=== PATIENT | female | born 1960 | race Hispanic/Latino ===

== ENCOUNTER → 2017-02-21 | Outpatient (CLI) | payer BC ==
[~2017-02-21] MED LIST: CIPR500T78 PO; HYDR1TAB8 PO; IBUP800T26 PO; METR500T PO; NITR-65 PO; PRILOSEC; SERT50TA; TRM50T; [UNRECOGNIZED DRUG - OTHER]
--- NOTE | 2017-02-21 11:12 | Diagnostic Imaging Report ---
EXAMINATION: Ultrasound of the soft tissues of the head and neck. INDICATION: Left posterior neck lump. FINDINGS: There is a hypoechoic lobulated mass measuring 3.8 x 1.2 x 1.5 cm. This does not have internal vascularity. Although this is a nonspecific finding, it may correlate with a lipoma. IMPRESSION: 3.8 cm lobulated mass is seen in the left side of the neck at the palpable area, has a nonspecific imaging appearance but may correlate with a lipoma. Correlate clinically. Dictated by: Dictated on workstation # [id number]
== END ==
LOC: RAD 10:18
PROVIDERS: ATTEND Nurse Practitioner Community Health
DX: R22.1 Localized swelling, mass and lump, neck (principal)
CPT/HCPCS: 76536

== ENCOUNTER 2017-03-20 12:02 | Outpatient (CLI) | payer BC ==
[~2017-03-20] VITALS: Ht 161.3 cm; Wt 67.6 kg
[2017-03-20] MEDS ORDERED: NAPR500T8 PO (12:17)
[2017-03-20] MEDS ORDERED: OMEP20CA12 PO (12:17)
[2017-03-20 12:18] VITALS: BP 151/69
== END 2017-03-20 12:36 | disposition home or self-care (01) ==
LOC: PREOP 12:02
PROVIDERS: ATTEND Surgery
DX: Z01.818 Encounter for other preprocedural examination (principal); R22.1 Localized swelling, mass and lump, neck
CPT/HCPCS: 87081

== ENCOUNTER 2017-03-23 05:55 | Day surgery (SDC) | payer BC ==
[~2017-03-23] VITALS: Ht 161.3 cm; Wt 67.6 kg
[~2017-03-23 05:55] MED LIST changes: +NAPR500T8 PO; +OMEP20CA12 PO
[2017-03-23] MEDS ORDERED: LACTATED RINGERS 1,000 ML IV PRN (06:20)
[2017-03-23] MEDS ORDERED: DEXAMETHASONE 10 MG/ML (DECADRON) 1 ML VIAL ONE (06:23)
[2017-03-23] MEDS ORDERED: proPOfol 200 MG/20 ML (DIPRIVAN) VIAL IV ONE (06:23)
[2017-03-23] MEDS ORDERED: ONDANSETRON 4 MG/2 ML (SDV) Z0FRAN ONE (06:23)
[2017-03-23] MEDS ORDERED: MIDAZOLAM 2 MG/2 ML (VERSED) VIAL ONE (06:23)
[2017-03-23] MEDS ORDERED: SEVOFLURANE (ULTANE) 15 ML INHAL SOLN ONE ×5 (06:23→08:51)
[2017-03-23] MEDS ORDERED: LIDOCAINE PF 2% 5 ML (XYLOCAINE) VIAL ONE (06:23)
[2017-03-23] MEDS ORDERED: fentaNYL INJECTION 100 MCG/2 ML AMP ONE (06:23)
[2017-03-23] MEDS ORDERED: NS (IVPB) 50 ML ONE (06:28)
[2017-03-23] MEDS ORDERED: CLINDAMYCIN 600 MG/4ML (CLEOCIN) VIAL ONE (06:28)
[2017-03-23] MEDS ORDERED: CLINDAMYCIN 600 MG/NS 50 ML IVPB IV ONE ×2 (07:00)
[2017-03-23 07:04] VITALS: BP 144/95
[2017-03-23] MEDS ORDERED: LIDOCAINE 1% INJ 20 ML (XYLOCAINE) VIAL ONE (07:11)
[2017-03-23] MEDS ORDERED: BUPIVACAINE 0.5% 30 ML (SENSORCAINE) VIAL ONE (07:11)
--- NOTE | 2017-03-23 07:47 | Progress Note-Pre Operative ---
Pre-Operative Progress Note H&P Reviewed The H&P was reviewed, patient examined and no changes noted. Date Seen by Provider: Mar 23, 2017 Time Seen by Provider: 07:35 Date H&P Reviewed: Mar 23, 2017 Time H&P Reviewed: 07:35 Pre-Operative Diagnosis: neck mass EWELINA MENDES DO Mar 23, 2017 07:47
[2017-03-23] MEDS ORDERED: LIDOCAINE 1% INJ 20 ML (XYLOCAINE) VIAL INJ ONE (08:15)
[2017-03-23] MEDS ORDERED: BUPIVACAINE 0.5% 30 ML (SENSORCAINE) VIAL INJ ONE (08:15)
--- NOTE | 2017-03-23 08:48 | Progress Note-Post Operative ---
Post-Operative Progess Note Surgeon (s)/Learning Engineer (s) Surgeon EWELINA MENDES DO Learning Engineer: na Pre-Operative Diagnosis neck mass Post-Operative Diagnosis intramuscular lipoma Procedure & Operative Findings Date of Procedure 03/23/17 Procedure Performed/Findings excision intramuscular lipoma 3x2.5x2 cm of neck Anesthesia Type gen Estimated Blood Loss Estimated blood loss (mL): min Specimens/Packing Specimens Removed lipoma EWELINA MENDES DO Mar 23, 2017 08:48
--- NOTE | 2017-03-23 08:50 | Discharge Inst-Simple/Standard ---
Discharge Inst-Standard Patient Instructions/Follow Up Plan of Care/Instructions/FU: 1 week [place]le Activity as Tolerated: Yes Discharge Diet: Regular Diet Other Inst to Patient Follow up Appt: Make appointment for 1 week. Instructions: No strenuous activity. May shower in 24 hours, no tub bath or soaking. Use incentive spirometer at home as directed. No Smoking Skin/Wound Care: May remove bandage in 24 hours. Keep stitched area clean and dry. Symptoms to Report: Appetite Changes, Extremity Discoloration, Numbness/Tingling, Swelling Increased , Bleeding Excessive, Eyesight Changes, Pain Increased, Urine Color Change, Constipation(Persistent), Fever over 101 degree F, Pain/Pressure in chest, Urinating Difficulty, Cough Up/Vomit Blood, Heart Beat Irreg/Pounding, Pain/ Pressure in jaw, Vaginal Bleeding Increase, Cramps in feet or legs, Lightheadedness, Pain/Pressure in shoulder, Diarrhea(Persistent), Memory Changes Suddenly, Questions/Concerns, Weight gain consecutive days, Dizziness/ Fainting, Nausea/Vomiting, Shortness of Breath, Weight gain over 2 pounds If questions or concerns contact your physician Or seek help at emergency department. EWELINA MENDES DO Mar 23, 2017 08:50
[2017-03-23 09:40] VITALS: BP 135/74
[2017-03-23 10:10] VITALS: BP 132/68
[2017-03-23 10:40] VITALS: BP 127/67
[2017-03-23 10:55] VITALS: BP 127/67
--- NOTE | 2017-03-24 09:42 | OPERATIVE REPORT ---
DATE OF SERVICE: 03/23/2017 PREOPERATIVE DIAGNOSIS: Neck mass. POSTOPERATIVE DIAGNOSIS: Intramuscular lipoma of the neck. PROCEDURE: Excision of intramuscular lipoma 3 x 2.5 x 2 cm of the neck. ANESTHESIA: General. ESTIMATED BLOOD LOSS: Minimal. COMPLICATIONS: None. INDICATIONS: The patient is a 56-year-old female with a neck mass that caused her pain and discomfort. She understands risks and benefits of procedure and wished to proceed with procedure. Consent was signed and on the chart. DESCRIPTION OF PROCEDURE: The patient was taken to the operating suite. She was prepped and draped in sterile fashion. Surgical pause was performed. An incision was made over the palpable mass. Cautery was used to dissect down through the subcutaneous tissue. Muscle was encountered and palpable mass was still below the muscle. The muscle had to be slightly divided. At this time, the fatty tumor was able to be visualized. Blunt dissection was used to dissect around this removing the fatty mass. Once removed, the wound was then irrigated with copious amounts of irrigation. The subcutaneous tissues were then reapproximated using 3-0 Vicryl. Skin was then closed using 3-0 nylon in a simple interrupted fashion. The patient tolerated the procedure well without any complications. She was taken to recovery room in stable condition. Job ID: [id number] DocumentID: [id number] Dictated Date: 03/23/2017 15:01:27 Explosives Truck Driver Date: 03/23/2017 22:36:40 Dictated By: EWELINA MENDES DO
== END 2017-03-23 10:55 | disposition home or self-care (01) ==
LOC: SDC 05:55
PROVIDERS: ATTEND Surgery
DX: D17.0 Benign lipomatous neoplasm of skin and subcutaneous tissue of head, face and neck (principal); M19.91 Primary osteoarthritis, unspecified site; M81.0 Age-related osteoporosis without current pathological fracture; F17.210 Nicotine dependence, cigarettes, uncomplicated; Z79.899 Other long term (current) drug therapy
CPT/HCPCS: 88304

== ENCOUNTER → 2018-07-06 | Outpatient (CLI) | payer BC ==
--- NOTE | 2018-07-06 21:18 | Diagnostic Imaging Report ---
INDICATION: Routine screening. No prior mammograms are available for comparison. 2-D and 3-D bilateral screening mammography was performed with CAD. The current study was also evaluated with a Computer Aided Detection (CAD) system. FINDINGS: Both breasts are heterogeneously dense, limiting the sensitivity of mammography. No dominant mass or malignant-appearing microcalcifications are seen. The axillae are unremarkable. IMPRESSION: No mammographic features suspicious for malignancy are identified. ACR BI-RADS Category 1: Negative. Result letter will be mailed to the patient. Note: At least 10% of breast cancer is not imaged by mammography. Dictated by: Dictated on workstation # [id number]
== END ==
LOC: RAD 09:28
PROVIDERS: ATTEND Nurse Practitioner Family
DX: Z12.31 Encounter for screening mammogram for malignant neoplasm of breast (principal)
CPT/HCPCS: 77067

== ENCOUNTER → 2018-07-16 | Outpatient (CLI) | payer BC | END | disposition home or self-care (01) | LOC: PREOP 06:13 | PROVIDERS: ATTEND Surgery | DX: Z01.818 Encounter for other preprocedural examination (principal) ==

== ENCOUNTER 2018-07-19 11:27 | Day surgery (SDC) | payer BC ==
[~2018-07-19] VITALS: Ht 161.3 cm; Wt 67.6 kg
[2018-07-19] MEDS ORDERED: NS IV 500 ML 500 ML IV PRN (11:42)
[2018-07-19 11:45] VITALS: BP 130/70
[2018-07-19] MEDS ORDERED: LACTATED RINGERS 1,000 ML IV ONE (11:45)
[2018-07-19] MEDS ORDERED: MIDAZOLAM 2 MG/2 ML (VERSED) VIAL ONE (12:29)
[2018-07-19] MEDS ORDERED: proPOfol 200 MG/20 ML (DIPRIVAN) VIAL IV ONE (12:29)
--- NOTE | 2018-07-19 12:31 | Progress Note-Pre Operative ---
Pre-Operative Progress Note H&P Reviewed The H&P was reviewed, patient examined and no changes noted. Date Seen by Provider: Jul 19, 2018 Time Seen by Provider: 12:30 Date H&P Reviewed: Jul 19, 2018 Time H&P Reviewed: 12:30 Pre-Operative Diagnosis: screening colonoscopy, constipation EWELINA MENDES DO Jul 19, 2018 12:31
--- NOTE | 2018-07-19 13:10 | Discharge Inst-Simple/Standard ---
Discharge Inst-Standard Patient Instructions/Follow Up Plan of Care/Instructions/FU: Repeat colonoscopy in 10 years unless family history of colon cancer, or personal history of colon polyps which would be 5 years. Any issues before that be seen at that time. Activity as Tolerated: Yes Discharge Diet: Regular Diet EWELINA MENDES DO Jul 19, 2018 13:10
--- NOTE | 2018-07-19 13:11 | Progress Note-Post Operative ---
Post-Operative Progess Note Surgeon (s)/Correctional Officer Chief (s) Surgeon EWELINA MENDES DO Correctional Officer Chief: na Pre-Operative Diagnosis screening colonoscopy, constipation Post-Operative Diagnosis normal colon Procedure & Operative Findings Date of Procedure 07/19/18 Procedure Performed/Findings colonoscopy Anesthesia Type per [facility] Estimated Blood Loss Estimated blood loss (mL): none Specimens/Packing Specimens Removed na EWELINA MENDES DO Jul 19, 2018 13:11
[2018-07-19 13:35] VITALS: BP 135/79
[2018-07-19] MEDS ORDERED: ONDANSETRON 4 MG/2 ML (SDV) Z0FRAN ONE (13:39)
[2018-07-19] MEDS ORDERED: ONDANSETRON 4 MG/2 ML (SDV) Z0FRAN IVP ONE (13:45)
[2018-07-19 14:02] VITALS: BP 127/81
[2018-07-19 14:03] VITALS: BP 127/81
--- NOTE | 2018-07-19 16:05 | Anesthesia-General Post-Op ---
MAC Patient Condition Mental Status/LOC: Same as Preop Cardiovascular: Satisfactory Nausea/Vomiting: Present (Nauseated after the procedure, better with zofran.) Respiratory: Satisfactory Pain: Controlled Complications: Absent Post Op Complications Complications None Follow Up Care/Instructions Patient Instructions None needed. Anesthesiology Discharge Order Discharge Order Patient was seen after the procedure and she was doing well, no complaints, stable vital signs, no apparent adverse anesthesia problems. KYAW HAWLEY DO Jul 19, 2018 16:05
--- NOTE | 2018-07-19 18:58 | OPERATIVE REPORT ---
DATE OF SERVICE: 07/19/2018 PREOPERATIVE DIAGNOSIS: Screening colonoscopy, constipation. POSTOPERATIVE DIAGNOSIS: Screening colonoscopy, constipation. PROCEDURE: Colonoscopy. SURGEON: Ewelina Iraheta DO ANESTHESIA: Per MD. ESTIMATED BLOOD LOSS: None. COMPLICATIONS: None. INDICATIONS: The patient is a 58-year-old female needing screening colonoscopy. She understands risks and benefits of procedure and wished to proceed with procedure. Consent was signed in the chart. PROCEDURE: The patient was taken to endoscopy suite, placed in left lateral recumbent position. Timeout was performed. Digital rectal exam was performed. There were no palpable polyps, masses or ulcerations. Scope was inserted into the rectum and advanced all the way to the cecum with minimal difficulty. Prep was adequate. Scope was then slowly retracted back. There were no polyps, masses or ulceration in the cecum, ascending, transverse, descending and sigmoid colon. Once in the rectum, scope was also retroflexed noting no other pathology. Scope was returned to its normal position, slowly withdrawn until completely removed. The patient tolerated the procedure well without any complications. She was taken to the recovery room in stable condition. RECOMMENDATIONS: The patient will need repeat colonoscopy in 10 years. If she has any problems prior to that, she should be reevaluated at that time. If she has any family history of colon cancer or personal history of colon polyps, it would be 5 years. Any issues before next scheduled colonoscopy, she should be reevaluated at that time for further evaluation. Job ID: [id number] DocumentID: [id number] Dictated Date: 07/19/2018 13:13:03 Dish Maker Date: 07/19/2018 18:57:56 Dictated By: EWELINA IRAHETA DO
== END 2018-07-19 14:05 | disposition home or self-care (01) ==
LOC: ENDO 11:27
PROVIDERS: ATTEND Surgery
DX: Z12.11 Encounter for screening for malignant neoplasm of colon (principal); K59.09 Other constipation; F17.210 Nicotine dependence, cigarettes, uncomplicated

== ENCOUNTER 2019-10-01 13:38 | Emergency (ER) | payer BC ==
[~2019-10-01] VITALS: Ht 162.6 cm; Wt 65.0 kg
[~2019-10-01 13:38] MED LIST changes: -OMEP20CA12 PO; +OMEP20CA18 PO
--- NOTE | 2019-10-01 15:27 | ED Headache ---
General Chief Complaint: Head/Cervical Problems Stated Complaint: HEAD PAIN Nursing Triage Note: Pt amb to room #2 with c/o headache. Pt sent from [facility] for further evaluation et care. First Line Production Supervisor provider called report to this RN. Pt reports on this day at 0400 she was awoken to sudden severe pain to R temporal region radiating to R occiput. Pt noted to be tender to touch. Pt denies visual changes and blurry vision. Pt denies cough, fever, SOA. Pt reports her sister yesterday evening (cardiac complications). Language line used during triage. Nursing Sepsis Screen: No Definite Risk Source: patient Exam Limitations: no limitations History of Present Illness Date Seen by Provider: October 01, 2019 Time Seen by Provider: 15:26 Initial Comments To ER with reports of a right-sided headache that she awakened with this morning. She was sent here from [facility] urgent care. Denies blurred vision or any visual changes. Her sister yesterday. No vomiting. No trauma. Timing/Duration: 24 hours Severity/Quality: moderate Location: other (right-sided) Prior Headaches/Recent Trauma: no recent headache/trauma Associated Symptoms: No nausea/vomiting, No stiff neck Allergies and Home Medications Allergies Coded Allergies: Penicillins (Unverified Allergy, Mild, 09/02/08) Sulfa (Sulfonamide Antibiotics) (Unverified Allergy, Mild, RASH, , 09/02/08) hydrocodone (Verified Allergy, Unknown, itching, 03/20/17) Home Medications Naproxen 500 Mg Tablet.dr, 500 MG PO DAILY, (Reported) Omeprazole 20 Mg Capsule.dr, 20 MG PO DAILY, (Reported) Patient Home Medication List Home Medication List Reviewed: Yes Review of Systems Review of Systems Constitutional: see HPI Eyes: No Symptoms Reported Ears, Nose, Mouth, Throat: no symptoms reported Respiratory: no symptoms reported Cardiovascular: no symptoms reported Genitourinary: no symptoms reported Musculoskeletal: no symptoms reported Skin: no symptoms reported Psychiatric/Neurological: Headache Past Anmufja-Wktuye-Vgolff Hx Patient Social History Alcohol Use: Denies Use Recreational Drug Use: No Smoking Status: Current Everyday Smoker Type Used: Cigarettes Recent Foreign Travel: No Contact w/Someone Who Travel: No Recent Infectious Disease Expo: No Recent Hopitalizations: No Immunizations Up To Date Tetanus Booster (TDap): Unknown Seasonal Allergies Seasonal Allergies: Yes Past Medical History Surgeries: Yes (LT KNEE, LIPOMA ON BACK, BREAST BX) Gallbladder, Hysterectomy Respiratory: No Cardiac: No Neurological: No Reproductive Disorders: No CREATIVE DEVELOPER History: Hysterectomy Sexually Transmitted Disease: No HIV/AIDS: No Gastrointestinal: Yes (GASTRITIS) Gastroesophageal Reflux Musculoskeletal: Yes (CHRONIC NECK PAIN WITH RADICULAR SYMPTOMS) Osteoporosis, Arthritis Endocrine: No Loss of Vision: Denies Hearing Impairment: Denies Cancer: No Psychosocial: No Integumentary: Yes (POSTERIOR NECK MASS) Blood Disorders: No Adverse Reaction/Blood Tranf: No Physical Exam Vital Signs Vital Signs - First Documented 10/01/19 13:49 Temp 36.6 Pulse 94 Resp 18 B/P (MAP) 121/86 (98) Pulse Ox 97 O2 Delivery Room Air Capillary Refill : Less Than 3 Seconds Height, Weight, BMI Height: 5'3.50" Weight: 149lbs. 0.0oz. 67.589320vj; 24.00 BMI Method:Actual General Appearance: WD/WN, no apparent distress HEENT: PERRL/EOMI, normal ENT inspection, TMs normal Neck: non-tender, full range of motion Respiratory: no respiratory distress, no accessory muscle use Gastrointestinal: normal bowel sounds, non tender Extremities: normal range of motion, non-tender Psychiatric: alert, oriented x 3 Crainal Nerves: normal hearing, normal speech, PERRL Motor/Sensory: no motor deficit, no sensory deficit Skin: normal color, warm/dry Progress/Results/Core Measures Results/Orders Lab Results Laboratory Tests Test 10/01/19 14:20 Range/Units White Blood Count 11.5 H 4.3-11.0 10^3/uL Red Blood Count 5.47 4.35-5.85 10^6/uL Hemoglobin 14.9 11.5-16.0 G/DL Hematocrit 44 35-52 % Mean Corpuscular Volume 80 80-99 FL Mean Corpuscular Hemoglobin 27 25-34 PG Mean Corpuscular Hemoglobin Concent 34 32-36 G/DL Red Cell Distribution Width 13.9 10.0-14.5 % Platelet Count 236 130-400 10^3/uL Mean Platelet Volume 12.1 H 7.4-10.4 FL Neutrophils (%) (Auto) 75 42-75 % Lymphocytes (%) (Auto) 20 12-44 % Monocytes (%) (Auto) 4 0-12 % Eosinophils (%) (Auto) 2 0-10 % Basophils (%) (Auto) 0 0-10 % Neutrophils # (Auto) 8.7 H 1.8-7.8 X 10^3 Lymphocytes # (Auto) 2.2 1.0-4.0 X 10^3 Monocytes # (Auto) 0.4 0.0-1.0 X 10^3 Eosinophils # (Auto) 0.2 0.0-0.3 10^3/uL Basophils # (Auto) 0.0 0.0-0.1 10^3/uL Erythrocyte Sedimentation Rate 13 0-30 MM/HR Sodium Level 138 135-145 MMOL/L Potassium Level 3.7 3.6-5.0 MMOL/L Chloride Level 102 98-107 MMOL/L Carbon Dioxide Level 24 21-32 MMOL/L Anion Gap 12 5-14 MMOL/L Blood Urea Nitrogen 7 7-18 MG/DL Creatinine 0.76 0.60-1.30 MG/DL Estimat Glomerular Filtration Rate > 60 BUN/Creatinine Ratio 9 Glucose Level 153 H 70-105 MG/DL Calcium Level 9.8 8.5-10.1 MG/DL Corrected Calcium 9.4 8.5-10.1 MG/DL Total Bilirubin 0.6 0.1-1.0 MG/DL Aspartate Amino Transf (AST/SGOT) 19 5-34 U/L Alanine Aminotransferase (ALT/SGPT) 20 0-55 U/L Alkaline Phosphatase 131 40-136 U/L Total Protein 7.5 6.4-8.2 GM/DL Albumin 4.5 3.2-4.5 GM/DL My Orders Orders - DENI CHINCHILLA APRN Cbc With Automated Diff (10/01/19 15:23) Erythrocyte Sedimentation Rate (10/01/19 15:23) Ed Iv/Invasive Line Start (10/01/19 15:23) Ct Head Wo (10/01/19 15:23) Comprehensive Metabolic Panel (10/01/19 15:23) Ketorolac Injection (Toradol Injection) (10/01/19 16:00) Diphenhydramine Injection (Benadryl Inje (10/01/19 16:00) Prochlorperazine Injection (Compazine In (10/01/19 16:00) Medications Given in ED Current Medications Medications Dose Ordered Sig/Karthik Route Start Time Stop Time Status Last Admin Dose Admin Diphenhydramine HCl 25 mg ONCE ONCE IVP 10/01/19 16:00 10/01/19 16:01 DC 10/01/19 16:10 25 MG Ketorolac Tromethamine 15 mg ONCE ONCE IVP 10/01/19 16:00 10/01/19 16:01 DC 10/01/19 16:11 15 MG Prochlorperazine Edisylate 5 mg ONCE ONCE IV 10/01/19 16:00 10/01/19 16:01 DC 10/01/19 16:11 5 MG Vital Signs/I&O 10/01/19 13:49 Temp 36.6 Pulse 94 Resp 18 B/P (MAP) 121/86 (98) Pulse Ox 97 O2 Delivery Room Air Blood Pressure Mean: 98 Departure Communication (Admissions) 1631-I discussed symptoms with the patient using the language line. States that she's been unable to sleep for the past 2 nights and believes her headache to be related to stress because her sister who lives in [place] just . At this time she feels much better and would like to go home. She states she had no other symptoms other than the headache itself, no tingling no vision troubles or any other symptoms. Impression Primary Impression: Headache Qualified Codes: R51 - Headache Additional Impression: Grief Disposition: HOME, SELF-CARE Condition: Stable Departure-Patient Inst. Decision time for Depature: 16:32 Referrals: [facility] ([place]) Primary Care Physician MARIALUISA LOCKETT (Family) Primary Care Physician Patient Instructions: Headache, Adult Add. Discharge Instructions: 1. Return to ER for any concerns 2. Follow-up with your doctor next week 3. All discharge instructions reviewed with patient and/or family. Voiced understanding. DENI CHINCHILLA APRN October 01, 2019 15:27
[2019-10-01 15:33] LABS: ALBUMIN 4.5 GM/DL (3.2-4.5)
[2019-10-01 15:34] LABS: CHLORIDE 102 MMOL/L (98-107); POTASSIUM 3.7 MMOL/L (3.6-5.0); SODIUM 138 MMOL/L (135-145)
[2019-10-01 15:35] LABS: CALCIUM 9.8 MG/DL (8.5-10.1)
[2019-10-01 15:36] LABS: GLUCOSE 153 MG/DL (70-105); TOTAL PROTEIN 7.5 GM/DL (6.4-8.2)
[2019-10-01 15:37] LABS: CARBON DIOXIDE 24 MMOL/L (21-32)
[2019-10-01 15:38] LABS: BILIRUBIN,TOTAL 0.6 MG/DL (0.1-1.0)
[2019-10-01 15:39] LABS: ALKALINE PHOSPHATASE 131 U/L (40-136); BASOPHILS % (AUTO) 0 % (0-10); EOSINOPHILS # (AUTO) 0.2 10^3/uL (0.0-0.3); EOSINOPHILS % (AUTO) 2 % (0-10); HEMATOCRIT 44 % (35-52); HEMOGLOBIN 14.9 G/DL (11.5-16.0); LYMPHOCYTES # (AUTO) 2.2 X 10^3 (1.0-4.0); LYMPHOCYTES % (AUTO) 20 % (12-44); MEAN CORPUSCULAR HEMOGLOBIN 27 PG (25-34); MEAN CORPUSCULAR HGB CONC 34 G/DL (32-36); MEAN CORPUSCULAR VOLUME 80 FL (80-99); MEAN PLATELET VOLUME 12.1 FL (7.4-10.4); MONOCYTES # (AUTO) 0.4 X 10^3 (0.0-1.0); MONOCYTES % (AUTO) 4 % (0-12); NEUTROPHILS # (AUTO) 8.7 X 10^3 (1.8-7.8); NEUTROPHILS % (AUTO) 75 % (42-75); PLATELET COUNT 236 10^3/uL (130-400); RED CELL DISTRIBUTION WIDTH 13.9 % (10.0-14.5); WHITE BLOOD COUNT 11.5 10^3/uL (4.3-11.0)
[2019-10-01 15:40] LABS: CREATININE SERUM 0.76 MG/DL (0.60-1.30); GFR ESTIMATED > 60
[2019-10-01 15:41] LABS: BUN/CREATININE RATIO 9
--- NOTE | 2019-10-01 15:42 | Diagnostic Imaging Report ---
PROCEDURE: CT head without contrast. TECHNIQUE: Multiple contiguous axial images were obtained through the brain without the use of intravenous contrast. Auto Exposure Controls were utilized during the CT exam to meet ALARA standards for radiation dose reduction. INDICATION: Woke up earlier today with severe right-sided head pain. COMPARISON: None FINDINGS: There is no midline shift or mass effect. The ventricles and sulci are unremarkable. No evidence for acute intracranial hemorrhage, abnormal extra-axial fluid collections or cerebral edema is present. Slight asymmetric low attenuation deep right frontal lobe white matter, likely of no significance. Basal ganglia calcifications are present. The basilar cisterns are unremarkable. There is presence of intracranial vascular calcifications. No hyperdense MCA sign. The bony calvarium is intact. The visualized paranasal sinuses and mastoid air cells are clear. IMPRESSION: Negative for acute intracranial abnormality on noncontrast CT of the head. Dictated by: Dictated on workstation # [id number]
[2019-10-01 15:43] LABS: ALANINE AMINOTRANSFERASE 20 U/L (0-55)
[2019-10-01] MEDS ORDERED: KETOROLAC 30 MG/ML VIAL IVP ONE (16:00)
[2019-10-01] MEDS ORDERED: PROCHLORPERAZINE 10 MG/2ML INJ (COMPAZINE) IV ONE (16:00)
[2019-10-01] MEDS ORDERED: diphenhydrAMINE 50 MG/ML INJ (BENADRYL) IVP ONE (16:00)
[2019-10-01 16:01] LABS: ERYTHROCYTE SEDIMENTATION RATE 13 MM/HR (0-30)
[2019-10-01] MEDS ORDERED: LORA-404 PO (16:33)
--- OUTSIDE RECORDS SUMMARY | 2019-10-01 16:53 | XMS REPORT ---
Author Author [employer]. 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 [facility] [employer] Address [address] [address] Care Team Providers Care Solderer Furnace Name Role Phone CATHRYN MARIALUISA Unavailable CATHRYN MARIALUISA Unavailable CAHTRYN MARIALUISA Unavailable CATHRYN MARIALUISA Unavailable CATHRYN MARIALUISA Unavailable CATHRYN MARIALUISA Unavailable GREG Cooper Unavailable MARIALUISA LOCKETT Unavailable Migration, Doctor Unavailable Unavailable Migration, Doctor Unavailable Unavailable Migration, Doctor Unavailable Unavailable Migration, Doctor Unavailable Unavailable Migration, Doctor Unavailable Unavailable Migration, Doctor Unavailable Unavailable Migration, Doctor Unavailable Unavailable Migration, Doctor Unavailable Unavailable Migration, Doctor Unavailable Unavailable Migration, Doctor Unavailable Unavailable LEVI, MARISELA Unavailable MARIALUISA LOCKETT Unavailable Unavailable LEVI, MARISELA Unavailable LEVI, MARISELA Unavailable LEVI, MARISELA Unavailable LEVI, MARISELA Unavailable Unavailable Unavailable Allergies The data below is from unstructured sources No Information No Information No Information No Information No Information No Information No Information No Information No Information No Information No Information No Information No Information No Information No Information No Information No Information No Information No Information No Information No Information No Information No Information No Information No Information No Information No Information No Information No Information No Information No Information No Information No Information Medications The data below is from unstructured sources Unknown Medications Unknown Medications Unknown Medications Unknown Medications Unknown Medications Unknown Medications Unknown Medications No Known Medications No Known Medications No Known Medications No Known Medications No Known Medications No Known Medications No Known Medications No Known Medications No Known Medications No Known Medications Unknown Medications Unknown Medications No Known Medications No Known Medications No Known Medications No Known Medications Unknown Medications Unknown Medications Unknown Medications Unknown Medications No Known Medications No Known Medications No Known Medications No Known Medications No Known Medications No Known Medications No Known Medications No Known Medications No Known Medications No Known Medications No Known Medications No Known Medications No Known Medications No Known Medications No Known Medications No Known Medications No Known Medications No Known Medications No Known Medications No Known Medications No Known Medications No Known Medications No Known Medications No Known Medications No Known Medications No Known Medications No Known Medications No Known Medications No Known Medications No Known Medications No Known Medications No Known Medications No Known Medications No Known Medications No Known Medications No Known Medications No Known Medications No Known Medications No Known Medications Problems Active Problems Problem Normalized Date Last Normalized Normalized Provider Fa cility Classification Problem(s) Recorded Problem Problem Sta tus Duration Disorders of Hypercholester Chronic Active MARISELA LEVI [facility] lipid olemia [id number] [place] [address] metabolism (9 Translations: of [facility] sources.) [ [place] ([address]) Hypercholester olemia, - Hypercholester olemia E78.00] Other Other fecal Episodic Active MARISELA LEVI Commu nity gastrointestin abnormalities [address] [place] [address] al disorders Translations: of [facility] (4 sources.) [ - Loose [place] ([address]277) stools R19.5] Other diseases Other Chronic Active MARISELA LEVI Com munity of bladder and specified [id number] [place] [address] urethra (4 disorders of of [facility] sources.) bladder [place] ([address]) Translations: [ - Bladder spasm N32.89] Other Pain in left Episodic Active MARISELA LEVI Comm unity connective leg [address] [place] [address] tissue disease Translations: of [facility] (5 sources.) [ - Leg pain, [place] ([address]) left M79.605] Other diseases 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 [address] [place] [address] urethra (4 Translations: of [facility] sources.) [ Bladder [place] ([address]) spasm] Past or Other Problems Problem Normalized Date Last Normalized Normalized Provider Fa cility Classification Problem(s) Recorded Problem Problem Sta tus Duration Disorders of Pure no information no information MARISELA BREN [facility] lipid hypercholester [address] [facility] metabolism (1 olemia, of [facility] source.) unspecified [place] ([address]) Translations: [ - Hypercholester olemia E78.00] Procedures Procedure Normalized Procedure Procedure Result Performer Facility Date 06-05-2013 [employer] influenza no information no name Com [facility] ([id number]) 06-05-2013 Immunoassay nfct agt no information no name Co On license of [facility] antb qual/semiquan 1 [facility] ([id number]) 12-05-2013 Urnls dip stick/tablet no information no name [facility] rgnt auto w/o [facility] ([id number]) 06-05-2013 Urnls dip stick/tablet no information no name [facility] rgnt auto w/o [facility] (80582) Immunizations The data below is from unstructured sources No Known Immunizations No Known Immunizations No Known Immunizations No Known Immunizations No Known Immunizations No Known Immunizations No Known Immunizations No Known Immunizations No Known Immunizations No Known Immunizations No Known Immunizations No Known Immunizations No Known Immunizations No Known Immunizations No Known Immunizations No Known Immunizations No Known Immunizations No Known Immunizations No Known Immunizations No Known Immunizations No Known Immunizations No Known Immunizations No Known Immunizations No Known Immunizations No Known Immunizations No Known Immunizations No Known Immunizations No Known Immunizations No Known Immunizations No Known Immunizations No Known Immunizations No Known Immunizations No Known Immunizations No Known Immunizations No Known Immunizations No Known Immunizations No Known Immunizations No Known Immunizations No Known Immunizations No Known Immunizations No Known Immunizations No Known Immunizations No Known Immunizations No Known Immunizations No Known Immunizations Results Test Name Value Interpretation Reference Range Date Time Fa cility (Normalized) (Normalized) (Medline Reference) laboratory on 2019-01-20 Bacteria SEE NOTE (no code) [facility] (U) [facility] (62145) laboratory on 2018-12-12 Albumin 4.5 g/dL (N) 3.4 - 5.4 g/dL [facility] [Mass/Vol] [facility] (03479) Albumin/Globulin 1.8 {ratio} (N) 1 - 2.5 {ratio} [facility] [Mass ratio] [facility] (31718) ALP [Catalytic 135 U/L (H) 44 - 147 U/L [facility] Health activity/Vol] [facility] (01311) ALT [Catalytic 17 U/L (N) 4 - 40 U/L [facility] activity/Vol] [facility] () AST [Catalytic 18 U/L (N) 10 - 34 U/L [facility] Health activity/Vol] [facility] () Basophils (Bld) 0.044 10*3/uL (N) 0 - 0.3 10*3/uL [facility] Health [#/Vol] [facility] () Basophils/100 0.5 % (N) 0.5 - 1 % [facility] He alth WBC (Bld) [facility] () Bilirubin 0.3 mg/dL (N) 0.1 - 1.2 mg/dL [facility] [Mass/Vol] [facility] () Calcium 9.7 mg/dL (N) 8.5 - 10.2 mg/dL [facility] [Mass/Vol] [facility] () Chloride 104 mmol/L (N) 95 - 106 mmol/L [facility] [Moles/Vol] [facility] () Cholesterol 220 mg/dL (H) 180 - 200 mg/dL [facility] [Mass/Vol] [facility] () Cholesterol in 33 mg/dL (L) [facility] h HDL [Mass/Vol] [facility] () Cholesterol in 0 mg/dL (no code) 0 - 100 mg/dL [facility] LDL [Mass/Vol] [facility] (08689) Cholesterol non 187 mg/dL (H) [facility] HDL [Mass/Vol] [facility] (09230) Cholesterol.tota 6.7 {ratio} (H) [facility] Hea lth l/Cholesterol in [facility] HDL [Mass ratio] [facility] () CO2 [Moles/Vol] 27 mmol/L (N) 23 - 29 mmol/L [facility] (98164) Creatinine 0.71 mg/dL (N) [facility] (46972) Eosinophils 0.2 10*3/uL (N) 0.05 - 0.5 [facility] Heal th (Bld) [#/Vol] 10*3/uL [facility] (58348) Eosinophils/100 2.3 % (N) 1 - 4 % [facility] WBC (Bld) [facility] (73156) Erythrocyte 13.1 % (N) 11.6 - 14.6 % [facility] H ealth distribution Center [facility] width (RBC) [facility] [Ratio] (85419) GFR/1.73 sq M 107 (N) 90 - 120 [facility] He alth predicted among mL/min/{1.73_m2} mL/min/{1.73_m2} Center o f [facility] blacks MDRD [facility] (S/P/Bld) [Vol (70215) rate/Area] GFR/1.73 sq 93 (N) 90 - 120 [facility] M.predicted MDRD mL/min/{1.73_m2} mL/min/{1.73_m2} [facility] (S/P/Bld) [Vol [facility] rate/Area] (60858) Globulin (S) 2.5 g/dL (N) 2 - 3.5 g/dL [facility] [Mass/Vol] [facility] (30911) Glucose 146 mg/dL (H) 60 - 125 mg/dL [facility] [Mass/Vol] [facility] (69110) Hematocrit (Bld) 38.9 % (N) 36.1 - 50.3 % [facility] [Volume Center [facility]] [facility] (47183) Hemoglobin (Bld) 13.4 g/dL (N) 12.1 - 17.2 g/dL [facility] [Mass/Vol] [facility] (68054) Lymphocytes 2.271 10*3/uL (N) 0.9 - 2.9 [facility] alth (Bld) [#/Vol] 10*3/uL [facility] (57246) Lymphocytes/100 26.1 % (N) 20 - 40 % [facility] WBC (Bld) [facility] (61434) MCH (RBC) 28.0 pg (N) 27 - 31 pg [facility] [Entitic mass] [facility] (39128) MCHC (RBC) 34.4 g/dL (N) 32 - 36 g/dL [facility]th [Mass/Vol] [facility] (06542) MCV (RBC) 81.4 fL (N) 80 - 100 fL [facility] lth [Entitic vol] [facility] (96288) Monocytes (Bld) 0.383 10*3/uL (N) 0.3 - 0.9 [facility] [#/Vol] 10*3/uL [facility] (72383) Monocytes/100 4.4 % (N) 2 - 8 % [facility] alth WBC (Bld) [facility] (89281) Neutrophils 5.803 10*3/uL (N) 1.7 - 7 10*3/uL [facility] Health (Bld) [#/Vol] [facility] (94500) Neutrophils/100 66.7 % (N) 40 - 60 % [facility] WBC (Bld) [facility] (57808) Platelet mean 12.7 fL (H) 7.2 - 11.7 fL [facility] Health volume (Bld) [facility] [Entitic vol] [facility] (76590) Platelets (Bld) 215 10*3/uL (N) 150 - 450 [facility] [#/Vol] 10*3/uL [facility] (42955) Potassium 3.8 mmol/L (N) 3.7 - 5.2 mmol/L [facility] [Moles/Vol] [facility] (86907) Protein 7.0 g/dL (N) 6.4 - 8.3 g/dL [facility] [Mass/Vol] [facility] (39557) RBC (Bld) 4.78 10*6/uL (N) 4.2 - 6.1 [facility] lth [#/Vol] 10*6/uL [facility] (87580) Sodium 139 mmol/L (N) 135 - 145 mmol/L [facility] [Moles/Vol] [facility] (59275) Triglyceride 653 mg/dL (H) 0 - 150 mg/dL [facility] [Mass/Vol] [facility] (69805) TSH Qn 1.69 m[IU]/L (N) 0.4 - 4 m[IU]/L [facility] (49274) Urea nitrogen 12 mg/dL (N) 7 - 20 mg/dL [facility] [Mass/Vol] [facility] (12676) Urea NOT APPLICABLE (no code) [facility] nitrogen/Creatin [facility] [Mass ratio] [facility] (59589) WBC (Bld) 8.7 10*3/uL (N) 3.5 - 10.5 [facility] [#/Vol] 10*3/uL [facility] (51890) urinalysis on 2017-06-19 Protein mass Negative (no code) 0 - 20 mg/dL [facility] ealth conc (U) [facility] (66585) other on 2017-06-19 BLO Negative (no code) [facility] (53095) KET 03/28/2018~Clear (no code) [facility] lth ~yellow~none~Neg [facility]~Negtive~Ne [facility] gative (25664) Lot # [id number] (no code) [facility] (03045) SG 1.010 (no code) [facility] (02787) URO 0.2 (no code) [facility] (61318) hematology on 2017-06-19 pH (Bld) 6.0 [pH] (no code) 7.38 - 7.42 [pH] [facility] (14263) Vital Signs Vital Sign Value Interpretation Reference Date Time Care Prov ider Facility (Normalized) (Normalized) Range Body height 160.02 cm (no code) cm 07-04-2013 MARISELA FRAIRE [facility] 18:50-0500 [address] [facility] (30799) Body height 160.02 cm (no code) cm 06-20-2013 MARISELA FRAIRE [facility] 14:10-[id number] [place] [address] (13881) Body height 160.02 cm (no code) cm 06-05-2013 MARISELAANDREZ FRAIRE [facility] 17:34-[address] [place] [address] (39036) Body 98 [degF] (no code) 97.8 - 99.0 12-05-2013 MARISELAANDREZ FRAIRE [facility] Temperature [degF] 20:11-[address] [place] [address] (44556) Body 97.8 [degF] (no code) 97.8 - 99.0 07-04-[address] [facility] temperature [degF] 18:50-[address] [place] [address] (19483) Body 97.8 [degF] (no code) 97.8 - 99.0 06-20-[address] [facility] temperature [degF] 14:100500 [address] [place] [address] (57239) Body 97.3 [degF] (no code) 97.8 - 99.0 06-05-2013 [facility] temperature [degF] 17:34-[address] [place] [address] (65904) Body weight 68.49 kg (no code) kg 12-05-2013 MARISELAANDREZ WELLS [facility] 20:110400 [id number] [place] [address] (00724) Body weight 65.64 kg (no code) kg 07-04-2013 MARISELAANDREZ WELLS [facility] 18:50-[address] [place] [address] ([id number]) Body weight 65.32 kg (no code) kg 06-20-2013 MARISELAANDREZ WELLS [facility] 14:100500 [address] [facility] (42883) Body weight 65.27 kg (no code) kg 06-05-2013 MARISELAANDREZ WELLS [facility] 17:34-[address] [place] [address] (71857) Height 160.02 cm (no code) cm 12-05-2013 MARISELA LEVI [facility] 20:110400 [id number] [place], [place] [address]s ([id number]) Interventions No Information Plan of Treatment The data below is from unstructured sources Activity Details Follow Up 4 Weeks Reason:depression Activity Details Follow Up next available Reason:Depr ession Goals No Information Social History No Information Functional Status No Information Mental Status No Information Encounters Encounter Normalized Encounter Encounter Diagnosis Care Provi simeon Organization Date Type 01-20-2019 [facility] Dysuria [place] (no [facility] CARE phone) CARE (no phone) 12-12-2018 [facility] Gastro-esophageal MARIALUISA Ga (no [facility] - reflux disease without phone) (no yana ne) 12-12-2018 esophagitis - 12-12-2018 08-04-2017 Patient encounter no information no name no or ganization name 07-25-2017 Patient encounter no information no name no or ganization name 07-03-2017 Patient encounter no information no name no or ganization name 06-19-2017 Patient encounter no information no name no or ganization name 01-20-2019 Patient encounter no information no name no or ganization name procedure 12-12-2018 Patient encounter no information no name no or ganization name procedure 12-14-2018 Telephone encounter no information MARIALUISA LOCKETT (no [facility] - phone) (no phone) 12-14-2018 - 12-14-2018 Medical Equipment No Information Payers No Information History general Narrative - Reported 2009-08-29 Note Type Note Facility History general Narrative - Reported Type Medical arthritis diagnosed 10 year s ago in [place] History Medical hespes virus History Surgical hysterectomy History Surgical cholecystectomy History Surgical left knee suregry History Surgical [facility] History general Narrative - Reported 2009-08-24 Note Type Note Facility History general Narrative - Reported Type Medical arthritis diagnosed 10 year s ago in [place] History Medical hespes virus History Surgical hysterectomy History Surgical cholecystectomy History Surgical left knee suregry History Surgical [facility] breast [facility]14682[facility] History general Narrative - Reported 2009-08-01 Note Type Note Facility History general Narrative - Reported Type Medical arthritis diagnosed 10 year s ago in [place] History Medical hespes virus History Surgical hysterectomy History Surgical cholecystectomy History Surgical left knee suregry History [facility] [place] [facility] History general Narrative - Reported 2009-06-15 Note Type Note Facility History general Narrative - Reported Type Medical arthritis diagnosed 10 year s ago in [place] History Medical hespes virus History Surgical hysterectomy History Surgical cholecystectomy History Surgical left knee suregry History Surgical left breast biopsy History Hospitaliz surgeries [facility] (20438) Additional Source Comments This clinical document has been generated using [employer] software that has been certified by the Office of the National Coordinator for Health Information Technology (ONC 15.99.04.3023.Diam.31.00.0.752773) and the National Committee for Solar Energy Installation Manager (NCQA, as an eMeasure certified technology). FOR RECORDS PERTAINING TO PATIENTS WHO ARE OR HAVE BEEN ENROLLED IN A CHEMICAL D EPENDENCY/SUBSTANCE ABUSE PROGRAM, SOME INFORMATION MAY BE OMITTED. This clinica l summary was aggregated from multiple sources. Caution should be exercised in using it in the provision of clinical care. This summary normalizes information from multiple sources, and as a consequence, information in this document may ma terially change the coding, format and clinical context of patient data. In yash tion, data may be omitted in some cases. CLINICAL DECISIONS SHOULD BE BASED ON T HE PRIMARY CLINICAL RECORDS. [employer] provides no warranty or guara ntee of the accuracy or completeness of information in this document.The followi ng information is based on time limited clinical information UNRECOGNIZED CONTENT PROVIDED BELOW FOR UNRECOGNIZED SECTION MEDICAL (GENERAL) HISTORY Type Description Date Medical History arthritis diagnosed 10 years ago in [place] Medical History hespes virus Surgical History hysterectomy Surgical History cholecystectomy Surgical History left knee suregry Surgical History left breast biopsy Type Description Date Medical History arthritis diagnosed 10 years ago [place] Medical History hespes virus Surgical History hysterectomy Surgical History cholecystectomy Surgical History left knee suregry Surgical History left breast biopsy Hospitalization History surgeries UNRECOGNIZED CONTENT PROVIDED BELOW FOR UNRECOGNIZED SECTION REASON FOR VISIT [id number]
--- OUTSIDE RECORDS SUMMARY | 2019-10-01 16:53 | XMS REPORT ---
Author Author Carmencita Narayan Doctor Organization [facility] Address Unknown Phone Unavailable Care Team Providers Care Research Staff Member Name Role Phone Migration, Doctor Unavailable Unavailable PROBLEMS Type Condition ICD9-CM Code ENV31-XR Code Onset Dates Condition S tatus SNOMED Code Problem Arthritis M19.90 Active 5251792 Problem Mood disorder F39 Active 842502 05 Problem Gastroesophageal reflux disease without esophagitis K21.9 Active 130807079 Problem Slow transit constipation K59.01 Acti ve 42369882 Problem Seasonal allergic rhinitis, unspecified allergic rhinitis trigger J30.2 Active 058235071 ALLERGIES Substance Reaction Event Type Date Status Pravastatin 40 Mg muscle pain..bb Non Drug Allergy Aug, Act josé miguel ENCOUNTERS Encounter Location Date Diagnosis [facility] [id number] [place] [address] Nov, [facility] [address] [place] [id number] [address] [place] [address] May, Well woman exam without gyne cological exam Z00.00 ; Screening for breast cancer Z12.31 and Screening for colon cancer Z12.11 [facility] [address] [place] [id number] [address] [place] [address] Jul, [facility] [address] [place] [id number] [address] [place] [address] Jul, Mood disorder F39 [facility] [address] [place] [id number] [address] [place] [address] Jul, Arthritis M19.90 and Mood di sorder F39 [facility] [address] [facility] [id number] [address] [place] [address] Jun, Elevated liver enzymes R74.8 [facility] [address] [place] [place] [id number] [address] [place] [address] Jun, [facility] [address] [address] May, Dysuria R30.0 ; Acute cystit is without hematuria N30.00 ; Abnormal findings on screening P09 and Abnormal levels of other serum enzymes R74.8 [facility] [address] [address] Apr, Elevated liver enzymes R74.8 [facility] [address] [address] 28 Jan, 2017 [place] [address] [address] 20 Jan, 2017 Elevated liver enzymes R74.8 [place] [address] [address] 18 Jan, 2017 Mass in neck R22.1 and Arthr itis M19.90 [facility] [place] [address] [address] Aug, Abdominal pain R10.9 and Art hritis M19.90 [facility] [place] [address] [address] 17 Jun, 2016 Acute non-recurrent pansinus itis J01.40 and Seasonal allergic rhinitis, unspecified allergic rhinitis trigger J30.2 [place] [address] [address] Apr, Gastroesophageal reflux dise ase without esophagitis K21.9 and Slow transit constipation K59.01 [place] [address] [address] Aug, [place] [address] [address] 13 Aug, 2014 [place] [address] [address] Nov, [place] [address] [place] [address] Nov, [facility] [address] [id number] [address] [place] [address], [place] [address] Jun, [facility] [address] [id number] [address] [place] [address], [place] [address] Jun, [facility] [address] [id number] [address] [place] [address], [place] [address] May, [facility] [address] [id number] [address] [place] [address], [place] [address] May, [facility] [address] [id number] [address] [place] [address], [place] [address] May, [facility] [address] [id number] [address] [place] [address], [place] [address] May, [facility] [address] [id number] [address] [place] [address], [place] [address] May, [facility] [address] [id number] [address] [place] [address], [place] [address] Dec, [facility] [address] [id number] [address] [place] [address], [place] [address] Nov, [facility] [address] [id number] [address] [place] [address], [place] [address] Oct, [facility] [address] [id number] [address] [place] [address], [place] [address] Oct, [facility] [address] [id number] [address] [place] [address], [place] [address] Oct, [facility] [address] [id number] [address] [place] [address], [place] [address] Oct, [facility] [address] [id number] [address] [place] [address], [place] [address] Jul, [facility] [address] [id number] [address] [place] [address], [place] [address] Mar, [facility] [address] [id number] [address] [place] [address], [place] [address] Feb, [facility] [address] [id number] [address] [place] [address], [place] [address] Feb, [facility] [address] [id number] [address] [place] [address], [place] [address] 08 Feb, 2012 [facility] [address] [id number] [address] [place] [address], [place] [address] 04 Feb, 2012 [facility] [address] [id number] [address] [place] [address], [place] [address] 03 Feb, 2012 [facility] [address] [id number] [address] [place] [address], [place] [address] 30 Jan, 2012 [facility] [address] [id number] [address] [place] [address], [place] [address] 29 Sep, 2011 [facility] [address] [id number] [address] [place] [address], [place] [address] 27 Sep2011 [facility] [address] [id number] [address] [place] [address], [place] [address] 18 Jan, 2012 [facility] [address] [id number] [address] [place] [address], [place] [address] 13 Jan, 2012 [facility] [address] [id number] [address] [place] [address], [place] [address] 11 Jan, 2012 [facility] [address] [id number] [address] [place] [address], [place] [address] 06 Jan, 2012 [facility] [address] [id number] [address] [place] [address], [place] [address] 02 Apr, 2010 [facility] [address] [id number] [address] [place] [address], [place] [address] 18 Apr, 2009 [facility] [address] [id number] [address] [place] [address], [place] [address] 23 Mar, 2009 [facility] [address] [id number] [address] [address] Mar, [facility] [address] [facility] [id number] [address] [place] [address] Feb, [facility] [address] [facility] [id number] [address] [place] [address] Nov, [facility] [address] [facility] [id number] [address] [place] [address] Oct, [facility] [address] [facility] [id number] [address] [place] [address] Aug, [facility] [address] [facility] [id number] [address] [place] [address] Jun, IMMUNIZATIONS No Known Immunizations SOCIAL HISTORY Never Assessed REASON FOR VISIT [facility] PLAN OF CARE VITAL SIGNS MEDICATIONS Medication Instructions Dosage Frequency Start Date End Date Duration S tatus Bactrim DS 800-160 mg 1 tablet by Oral route 2 times p er day for 7 day(s) Nov, Active PredniSONE 20 mg 1 tablet by Oral route 2 times per da y for 5 day(s) Feb, Active Loratadine 10 mg take 1 tablet by Oral route 1 time pe r day take at hs Jun, Active Colace 100 mg 1 capsule by Oral route 2 times per day PRN Jun, Active Cipro 500 mg 1 tablet by Oral route every 12 hours for 7 day(s) Jan, Active RESULTS No Results PROCEDURES No Known procedures INSTRUCTIONS MEDICATIONS ADMINISTERED No Known Medications MEDICAL (GENERAL) HISTORY Type Description Date Medical History arthritis diagnosed 10 years ago in [place] Medical History hespes virus Surgical History hysterectomy Surgical History cholecystectomy Surgical History left knee suregry Surgical History left breast biopsy Hospitalization History surgeries
--- OUTSIDE RECORDS SUMMARY | 2019-10-01 16:53 | XMS REPORT ---
Author Author Carmencita Narayan Doctor Organization [facility] Address Unknown Phone Unavailable Care Team Providers Care Construction Manager Name Role Phone Migration, Doctor Unavailable Unavailable PROBLEMS Type Condition ICD9-CM Code RWD10-VG Code Onset Dates Condition S tatus SNOMED Code Problem Arthritis M19.90 Active 1209617 Problem Mood disorder F39 Active 971526 05 Problem Gastroesophageal reflux disease without esophagitis K21.9 Active 344138172 Problem Slow transit constipation K59.01 Acti ve 49020178 Problem Seasonal allergic rhinitis, unspecified allergic rhinitis trigger J30.2 Active 649003641 ALLERGIES No Information ENCOUNTERS Encounter Location Date Diagnosis [facility] [address] [place] [id number] [address] [place] [address] May, Well woman exam without gyne cological exam Z00.00 ; Screening for breast cancer Z12.31 and Screening for colon cancer Z12.11 [place] [address] [place] [id number] [address] [place] [address] Jul, [facility] [address] [place] [id number] [address] [place] [address] Jul, Mood disorder F39 [facility] [address] [place] [id number] [address] [place] [address] Jul, Arthritis M19.90 and Mood di sorder F39 [facility] [address] [place] [id number] [address] [place] [address] Jun, Elevated liver enzymes R74.8 [facility] [address] [place] [id number] [address] [place] [address] Jun, [facility] [address] [place] [id number] [address] [place] [address] May, Dysuria R30.0 ; Acute cystit is without hematuria N30.00 ; Abnormal findings on screening P09 and Abnormal levels of other serum enzymes R74.8 [facility] [address] [address] Apr, Elevated liver enzymes R74.8 [facility] [address] [place] [id number] [place] [address] 28 Jan, 2017 [facility] [address] [address] Jan, Elevated liver enzymes R74.8 [facility] [address] [address] 18 Jan, 2017 Mass in neck R22.1 and Arthr itis M19.90 [facility] [place] [address] [address] Aug, Abdominal pain R10.9 and Art hritis M19.90 [facility] [place] [address] [address] Jun, Acute non-recurrent pansinus itis J01.40 and Seasonal allergic rhinitis, unspecified allergic rhinitis trigger J30.2 [place] [address] [address] Apr, Gastroesophageal reflux dise ase without esophagitis K21.9 and Slow transit constipation K59.01 [place] [address] [address] Aug, [place] [address] [address] Aug, [place] [address] [address] Nov, [place] [address] [address] Nov, [place] [address] [address] Jun, [facility] [address] [id number] [address] [place] [address], [place] [address] Jun, [facility] [address] [id number] [address] [place] [address], [place] [address] May, [facility] [address] [id number] [address] [place] [address], [place] [address] May, [facility] [address] [id number] [address] [place] [address], [place] [address] May, [facility] [address] [id number] [address] [place] [address], [place] [address] May, [facility] [address] [id number] [address] [place] [address], [place] [address] May, [facility] [address] [id number] [address] [place] [address], [place] [address] Dec, [facility] [address] [id number] [address] [place] [address], [place] [address] Nov, [facility] [address] [id number] [address] [place] [address], [place] [address] Oct, [facility] [address] [id number] [address] [place] [address], [place] [address] Oct, [facility] [address] [id number] [address] [place] [address], [place] [address] Oct, [facility] [address] [id number] [address] [place] [address], [place] [address] Oct, [facility] [address] [id number] [address] [place] [address], [place] [address] Jul, [facility] [address] [id number] [address] [place] [address], [place] [address] Mar, [facility] [address] [id number] [address] [place] [address], [place] [address] Feb, [facility] [address] [id number] [address] [place] [address] [address] 26 Feb, 2012 [facility] [address] [id number] [address] [place] [address], [place] [address] 08 Feb, 2012 [facility] [address] [id number] [address] [place] [address], [place] [address] 04 Feb, 2012 [facility] [address] [id number] [address] [place] [address], [place] [address] 03 Feb, 2012 [facility] [address] [id number] [address] [place] [address], [place] [address] 30 Sep, 2011 [facility] [address] [id number] [address] [place] [address], [place] [address] 29 Sep2011 [facility] [address] [id number] [address] [place] [address] [address] 27 Sep2011 [facility] [address] [id number] [address] [place] [address], [place] [address] 18 Jan, 2012 [facility] [address] [id number] [address] [place] [address], [place] [address] 13 Jan, 2012 [facility] [address] [id number] [address] [place] [address], [place] [address] 11 Jan, 2012 [facility] [address] [id number] [address] [place] [address], [place] [address] 06 Jan, 2012 [facility] [address] [id number] [address] [place] [address] 02 Apr, 2010 [facility] [address] [id number] [address] [place] [address] 18 Apr, 2009 [facility] [address] [id number] [address] [place] [address], [place] [address] Mar, [facility] [address] [id number] [address] [place] [address] 09 Mar, 2009 [facility] [address] [id number] [address] [place] [address] 13 Feb, 2009 [facility] [address] [id number] [address] [place] [address] Nov, [facility] [address] [facility] [id number] [address] [place] [address] Oct, [facility] [address] [facility] [id number] [address] [place] [address] Aug, [facility] [address] [facility] [id number] [address] [place] [address] Jun, IMMUNIZATIONS No Known Immunizations SOCIAL HISTORY Never Assessed REASON FOR VISIT [facility] PLAN OF CARE VITAL SIGNS MEDICATIONS No Known Medications RESULTS No Results PROCEDURES No Known procedures INSTRUCTIONS MEDICATIONS ADMINISTERED No Known Medications MEDICAL (GENERAL) HISTORY Type Description Date Medical History arthritis diagnosed 10 years ago in [place] Medical History hespes virus Surgical History hysterectomy Surgical History cholecystectomy Surgical History left knee suregry Surgical History left breast biopsy Hospitalization History surgeries
--- OUTSIDE RECORDS SUMMARY | 2019-10-01 16:53 | XMS REPORT ---
Author Author Carmencita SIMS Organization [facility] Address [address] [place] [address] Care Team Providers Care Primary Care Pediatrician Name Role Phone MARISELA SIMS Unavailable PROBLEMS Type Condition ICD9-CM Code [id number] Code Onset Dates Condition S tatus SNOMED Code Problem Slow transit constipation K59.01 Acti ve 08800580 Problem Hypercholesterolemia E78.00 Active 69897173 Problem Bladder spasm N32.89 Active 612842 006 Problem Gastroesophageal reflux disease without esophagitis K21.9 Active 420485483 Problem Seasonal allergic rhinitis, unspecified allergic rhinitis trigger J30.2 Active 221896849 Problem Arthritis M19.90 Active 7807467 Problem Mood disorder F39 Active 733271 05 ALLERGIES No Information ENCOUNTERS Encounter Location Date Diagnosis [facility] [address] [facility] [id number] [address] [place] [address] Dec, Dysuria R30.0 ; Bladder spas m N32.89 and Loose stools R19.5 [facility] [address] [place] [id number] [place] [address] Nov, [facility] [address] [address] Nov, Gastroesophageal reflux disease without esophagitis K21.9 ; Leg pain, left M79.605 ; Arthritis M19.90 and Hypercholesterolemia E78.00 [facility] [address] [address] May, Well woman exam without gynecological ex am Z00.00 ; Screening for breast cancer Z12.31 and Screening for colon cancer Z12.11 [facility] [address] [address] Jul, [facility] [address] [address] Jul, Mood disorder F39 [place] [id number] [address] Jul, Arthritis M19.90 and Mood disorder F39 [facility] [address] [address] Jun, Elevated liver enzymes R74.8 [facility] [place] [address] [address] Jun, [place] [address] [address] May, Dysuria R30.0 ; Acute cystitis without h ematuria N30.00 ; Abnormal findings on screening P09 and Abnormal levels of other serum enzymes R74.8 [place] [address] [address] Apr, Elevated liver enzymes R74.8 [place] [address] [address] Jan, [place] [address] [address] Jan, Elevated liver enzymes R74.8 [place] [address] [address] 18 Jan, 2017 Mass in neck R22.1 and Arthritis M19.90 [facility] [place] [address] [address] Aug, Abdominal pain R10.9 and Art hritis M19.90 [facility] [address] [address] 17 Jun, 2016 Acute non-recurrent pansinus itis J01.40 and Seasonal allergic rhinitis, unspecified allergic rhinitis trigger J30.2 [place] [address] [address] Apr, Gastroesophageal reflux disease without esophagitis K21.9 and Slow transit constipation K59.01 [facility] [address] [id number] [place] [address] 14 Aug, 2014 [facility] [address] [id number] [place] [address] Aug, [facility] [address] [id number] [place] [address] Nov, [facility] [address] [place] [id number] [place] [address] Nov, [facility] [address] [id number] [place] [address] Jun, [facility] [address] [id number] [place] [address] Jun, [facility] [address] [id number] [place] [address] May, [facility] [address] [place] [address] [id number] [place] [address] May, [facility] [address] [id number] [place] [address] May, [facility] [address] [place] [address] [id number] [place] [address] May, [facility] [address] [id number] [place] [address] May, [facility] [address] [place] [address] [id number] [place] [address] Dec, [facility] [address] [id number] [place] [address] Nov, [facility] [address] [id number] [place] [address] Oct, [facility] [address] [id number] [place] [address] Oct, [facility] [address] [id number] [place] [address] Oct, [facility] [address] [id number] [place] [address] 14 Oct, 2012 [facility] [address] [id number] [place] [address] Jul, [facility] [address] [id number] [place] [address] Mar, [facility] [address] [id number] [place] [address] Feb, [facility] [address] [id number] [place] [address] Feb, [facility] [address] [id number] [place] [address] Feb, [facility] [address] [id number] [place] [address] Feb, [facility] [address] [id number] [place] [address] Feb, [facility] [address] [id number] [place] [address] 30 Sep, 2011 [facility] [address] [id number] [place] [address] 29 Sep2011 [facility] [address] [id number] [place] [address] 27 Sep2011 [facility] [address] [id number] [place] [address] 18 Sep, 2011 [facility] [address] [id number] [place] [address] 13 Sep, 2011 [facility] [address] [id number] [place] [address] 11 Sep, 2011 [facility] [address] [place] [id number] [place] [address] 06 Sep, 2011 [facility] [address] [id number] [place] [address] Apr, [facility] [address] [id number] [place] [address] Apr, [facility] [address] [id number] [place] [address] Mar, [facility] [address] [id number] [place] [address] Mar, [facility] [address] [id number] [place] [address] Feb, [facility] [address] [id number] [place] [address] Nov, [facility] [address] [id number] [place] [address] Oct, [facility] [address] [id number] [place] [address] Aug, [facility] [address] [id number] [place] [address] Jun, IMMUNIZATIONS No Known Immunizations SOCIAL HISTORY Never Assessed REASON FOR VISIT PLAN OF CARE VITAL SIGNS Height 63 in 2013-07-04 Weight 144.7 lbs 2013-07-04 Temperature 97.8 degrees Fahrenheit 2013-07-04 Heart Rate 80 bpm 2013-07-04 Respiratory Rate 20 2013-07-04 Blood pressure systolic 138 mmHg 2013-07-04 Blood pressure diastolic 80 mmHg 2013-07-04 MEDICATIONS No Known Medications RESULTS No Results PROCEDURES No Known procedures INSTRUCTIONS MEDICATIONS ADMINISTERED No Known Medications MEDICAL (GENERAL) HISTORY Type Description Date Medical History arthritis diagnosed 10 years ago in [place] Medical History hespes virus Surgical History hysterectomy Surgical History cholecystectomy Surgical History left knee suregry Surgical History left breast biopsy Hospitalization History surgeries
--- OUTSIDE RECORDS SUMMARY | 2019-10-01 16:53 | XMS REPORT ---
Author Author Carmencita SIMS Organization [facility] Address [address] [place] [address] Care Team Providers Care Mail Opener Name Role Phone MARISELA SIMS Unavailable PROBLEMS Type Condition ICD9-CM Code IMS19-NX Code Onset Dates Condition S tatus SNOMED Code Problem Slow transit constipation K59.01 Acti ve 17173700 Problem Hypercholesterolemia E78.00 Active 76268476 Problem Bladder spasm N32.89 Active 118896 006 Problem Gastroesophageal reflux disease without esophagitis K21.9 Active 483798647 Problem Seasonal allergic rhinitis, unspecified allergic rhinitis trigger J30.2 Active 630427681 Problem Arthritis M19.90 Active 5331848 Problem Mood disorder F39 Active 577031 05 ALLERGIES No Information ENCOUNTERS Encounter Location Date Diagnosis [facility] [address] [place] [id number] [place] [address] Dec, Dysuria R30.0 ; Bladder spas m N32.89 and Loose stools R19.5 [facility] [address] [place] [id number] [place] [address] Nov, [facility] [address] [place] [id number] [place] [address] Nov, Gastroesophageal reflux dise ase without esophagitis K21.9 ; Leg pain, left M79.605 ; Arthritis M19.90 and Hypercholesterolemia E78.00 [facility] [address] [place] [id number] [place] [address] May, Well woman exam without gyne cological exam Z00.00 ; Screening for breast cancer Z12.31 and Screening for colon cancer Z12.11 [facility] [address] [place] [id number] [place] [address] Jul, [facility] [address] [place] [id number] [place] [address] Jul, Mood disorder F39 [place] [address] [place] [id number] [place] [address] Jul, Arthritis M19.90 and Mood di sorder F39 [place] [address] [place] [id number] [place] [address] Jun, Elevated liver enzymes R74.8 [facility] [place] [address] [place] [id number] [place] [address] Jun, [place] [address] [address] May, Dysuria R30.0 ; Acute cystit is without hematuria N30.00 ; Abnormal findings on screening P09 and Abnormal levels of other serum enzymes R74.8 [place] [address] [address] Apr, Elevated liver enzymes R74.8 [place] [address] [address] Jan, [place] [address] [address] Jan, Elevated liver enzymes R74.8 [place] [address] [address] 18 Jan, 2017 Mass in neck R22.1 and Arthr itis M19.90 [facility] [place] [address] [place] [id number] [place] [address] Aug, Abdominal pain R10.9 and Art hritis M19.90 [facility] [place] [address] [place] [id number] [place] [address] 17 Jun, 2016 Acute non-recurrent pansinus itis J01.40 and Seasonal allergic rhinitis, unspecified allergic rhinitis trigger J30.2 [place] [address] [place] [id number] [place] [address] Apr, Gastroesophageal reflux dise ase without esophagitis K21.9 and Slow transit constipation K59.01 [facility] [address] [id number] [address] [place] [address], [place] [address] Aug, [facility] [address] [id number] [address] [place] [address], [place] [address] Aug, [facility] [address] [id number] [address] [place] [address] Nov, [facility] [address] [id number] [address] [place] [address], [place] [address] Nov, [facility] [address] [id number] [address] [place] [address] Jun, [facility] [address] [id number] [address] [place] [address], [place] [address] Jun, [facility] [address] [id number] [address] [place] [address] May, [facility] [address] [id number] [address] [place] [address], [place] [address] May, [facility] [address] [id number] [address] [place] [id number] May, [facility] [address] [id number] [address] [place] [address] May, [facility] [address] [id number] [address] [place] [address] May, [facility] [address] [id number] [address] [place] [address], [place] [address] Dec, [facility] [address] [id number] [address] [place] [address] Nov, [facility] [address] [id number] [address] [place] [address] Oct, [facility] [address] [id number] [address] [place] [address], [place] [address] Oct, [facility] [address] [id number] [address] [place] [address], [place] [address] Oct, [facility] [address] [id number] [address] [place] [address], [place] [address] Oct, [facility] [address] [id number] [address] [place] [address], [place] [address] Jul, [facility] [address] [id number] [address] [place] [address], [place] [address] Mar, [facility] [address] [id number] [address] [place] [address], [place] [address] Feb, [facility] [address] [id number] [address] [place] [address], [place] [address] Feb, [facility] [address] [id number] [address] [place] [address], [place] [address] 08 Feb, 2012 [facility] [address] [id number] [address] [place] [address], [place] [address] 04 Feb, 2012 [facility] [address] [id number] [address] [place] [address], [place] [address] 03 Feb, 2012 [facility] [address] [id number] [address] [place] [address], [place] [address] 30 Sep, 2011 [facility] [address] [id number] [address] [place] [address], [place] [address] 29 Sep, 2011 [facility] [address] [id number] [address] [place] [address], [place] [address] 27 Sep, 2011 [facility] [address] [id number] [address] [place] [address], [place] [address] 18 Sep, 2011 [facility] [address] [id number] [address] [place] [address], [place] [address] 13 Sep, 2011 [facility] [address] [id number] [address] [place] [address], [place] [address] 11 Jan, 2012 [facility] [address] [id number] [address] [place] [id number] Jan, [facility] [address] [id number] [address] [place] [id number] Apr, [facility] [address] [id number] [address] [place] [id number] Apr, [facility] [address] [id number] [address] [place] [id number] Mar, [facility] [address] [id number] [address] [place] [id number] Mar, [facility] [address] [id number] [address] [place] [id number] Feb, [facility] [address] [id number] [address] [place] [id number] Nov, [facility] [address] [id number] [address] [place] [id number] Oct, [facility] [address] [id number] [address] [place] [id number] Aug, [facility] [address] [id number] [address] [place] [id number] Jun, IMMUNIZATIONS No Known Immunizations SOCIAL HISTORY Never Assessed REASON FOR VISIT PLAN OF CARE VITAL SIGNS Height 63 in 2013-06-20 Weight 144 lbs 2013-06-20 Temperature 97.8 degrees Fahrenheit 2013-06-20 Heart Rate 78 bpm 2013-06-20 Respiratory Rate 20 2013-06-20 Blood pressure systolic 132 mmHg 2013-06-20 Blood pressure diastolic 68 mmHg 2013-06-20 MEDICATIONS No Known Medications RESULTS No Results PROCEDURES No Known procedures INSTRUCTIONS MEDICATIONS ADMINISTERED No Known Medications MEDICAL (GENERAL) HISTORY Type Description Date Medical History arthritis diagnosed 10 years ago in [place] Medical History hespes virus Surgical History hysterectomy Surgical History cholecystectomy Surgical History left knee suregry Surgical History left breast biopsy Hospitalization History surgeries
--- OUTSIDE RECORDS SUMMARY | 2019-10-01 16:53 | XMS REPORT ---
Author Author Carmencita SIMS Organization [facility] Address [address] [place] [address] Care Team Providers Care Decorator Inspector Name Role Phone MARISELA SIMS Unavailable PROBLEMS Type Condition ICD9-CM Code [id number] Code Onset Dates Condition S tatus SNOMED Code Problem Slow transit constipation K59.01 Acti ve 49986516 Problem Hypercholesterolemia E78.00 Active 37700340 Problem Bladder spasm N32.89 Active 648256 006 Problem Gastroesophageal reflux disease without esophagitis K21.9 Active 616014910 Problem Seasonal allergic rhinitis, unspecified allergic rhinitis trigger J30.2 Active 692337127 Problem Arthritis M19.90 Active 3427883 Problem Mood disorder F39 Active 886213 05 ALLERGIES No Information ENCOUNTERS Encounter Location Date Diagnosis [facility] [address] [id number] [address] [place] [address] Dec, Dysuria R30.0 ; Bladder spas m N32.89 and Loose stools R19.5 [facility] [address] [id number] [address] [place] [address] Nov, [facility] [address] [id number] [address] [place] [address] Nov, Gastroesophageal reflux dise ase without esophagitis K21.9 ; Leg pain, left M79.605 ; Arthritis M19.90 and Hypercholesterolemia E78.00 [facility] [address] [id number] [address] [place] [address] May, Well woman exam without gyne cological exam Z00.00 ; Screening for breast cancer Z12.31 and Screening for colon cancer Z12.11 [facility] [id number] [address] [place] [address] Jul, [facility] [address] [id number] [address] [place] [address] Jul, Mood disorder F39 [place] [address] [place] [id number] [place] [address] Jul, Arthritis M19.90 and Mood di sorder F39 [place] [address] [id number] [place] [address] Jun, Elevated liver enzymes R74.8 [facility] [place] [address] [id number] [place] [address] Jun, [place] [address] [address] May, Dysuria R30.0 ; Acute cystit is without hematuria N30.00 ; Abnormal findings on screening P09 and Abnormal levels of other serum enzymes R74.8 [place] [address] [address] Apr, Elevated liver enzymes R74.8 [place] [address] [address] Jan, [place] [address] [address] Jan, Elevated liver enzymes R74.8 [place] [address] [address] 18 Jan, 2017 Mass in neck R22.1 and Arthr itis M19.90 [facility] [place] [address] [place] [id number] [address] [place] [address] Aug, Abdominal pain R10.9 and Art hritis M19.90 [facility] [place] [address] [place] [id number] [address] [place] [address] 17 Jun, 2016 Acute non-recurrent pansinus itis J01.40 and Seasonal allergic rhinitis, unspecified allergic rhinitis trigger J30.2 [place] [address] [place] [id number] [address] [place] [address] Apr, Gastroesophageal reflux dise ase without esophagitis K21.9 and Slow transit constipation K59.01 [facility] [address] [id number] [address] [place] [address], [place] [address] Aug, [facility] [address] [id number] [address] [place] [address], [place] [address] Aug, [facility] [address] [id number] [address] [place] [address] Nov, [facility] [address] [id number] [address] [place] [address], [place] [address] Nov, [facility] [address] [id number] [address] [place] [address] Jun, [facility] [address] [id number] [address] [place] [address], [place] [address] Jun, [facility] [address] [id number] [address] [place] [address] May, [facility] [address] [id number] [address] [place] [address], [place] [address] May, [facility] [address] [id number] [address] [place] [address] May, [facility] [address] [id number] [address] [place] [address] May, [facility] [address] [id number] [address] [place] [address] May, [facility] [address] [id number] [address] [place] [address], [place] [address] Dec, [facility] [address] [id number] [address] [place] [address] Nov, [facility] [address] [id number] [address] [place] [address] Oct, [facility] [address] [id number] [address] [place] [address], [place] [address] Oct, [facility] [address] [id number] [address] [place] [address], [place] [address] Oct, [facility] [address] [id number] [address] [place] [address], [place] [address] Oct, [facility] [address] [id number] [address] [place] [address], [place] [address] Jul, [facility] [address] [id number] [address] [place] [address], [place] [address] Mar, [facility] [address] [id number] [address] [place] [address], [place] [address] Feb, [facility] [address] [id number] [address] [place] [address], [place] [address] Feb, [facility] [address] [id number] [address] [place] [address], [place] [address] 08 Feb, 2012 [facility] [address] [id number] [address] [place] [address], [place] [address] 04 Feb, 2012 [facility] [address] [id number] [address] [place] [address], [place] [address] 03 Feb, 2012 [facility] [address] [id number] [address] [place] [address], [place] [address] 30 Sep, 2011 [facility] [address] [id number] [address] [place] [address], [place] [address] 29 Sep, 2011 [facility] [address] [id number] [address] [place] [address], [place] [address] 27 Sep, 2011 [facility] [address] [id number] [address] [place] [address], [place] [address] 18 Sep, 2011 [facility] [address] [id number] [address] [place] [address], [place] [address] 13 Sep, 2011 [facility] [address] [id number] [address] [place] [address], [place] [address] 11 Jan, 2012 [facility] [address] [id number] [address] [place] [address] Jan, [facility] [address] [id number] [address] [place] [address] Apr, [facility] [address] [id number] [address] [place] [address] Apr, [facility] [address] [id number] [address] [place] [address] Mar, [facility] [address] [id number] [address] [place] [address] Mar, [facility] [address] [id number] [address] [place] [address] Feb, [facility] [address] [id number] [address] [place] [address] Nov, [facility] [address] [id number] [address] [place] [address] Oct, [facility] [address] [id number] [address] [place] [address] Aug, [facility] [address] [id number] [address] [place] [address] Jun, IMMUNIZATIONS No Known Immunizations SOCIAL HISTORY Never Assessed REASON FOR VISIT PLAN OF CARE VITAL SIGNS Height 63 in 2013-06-05 Weight 143.9 lbs 2013-06-05 Temperature 97.3 degrees Fahrenheit 2013-06-05 Heart Rate 74 bpm 2013-06-05 Respiratory Rate 20 2013-06-05 Blood pressure systolic 130 mmHg 2013-06-05 Blood pressure diastolic 72 mmHg 2013-06-05 MEDICATIONS No Known Medications RESULTS No Results PROCEDURES Procedure Date Ordered Result Body Site IMMUNOASSAY,INFECTIOUS AGENT Jun 05, 2013 INFLUENZA ASSAY W/OPTIC Jun 05, 2013 URINALYSIS, AUTO, W/O SCOPE Jun 05, 2013 INSTRUCTIONS MEDICATIONS ADMINISTERED No Known Medications MEDICAL (GENERAL) HISTORY Type Description Date Medical History arthritis diagnosed 10 years ago in [place] Medical History hespes virus Surgical History hysterectomy Surgical History cholecystectomy Surgical History left knee suregry Surgical History left breast biopsy Hospitalization History surgeries
--- OUTSIDE RECORDS SUMMARY | 2019-10-01 16:53 | XMS REPORT ---
Author Author Carmencita Narayan Doctor Organization [facility] Address Unknown Phone Unavailable Care Team Providers Care Rope Coiling Machine Operator Name Role Phone Migration, Doctor Unavailable Unavailable PROBLEMS Type Condition ICD9-CM Code ZES05-GD Code Onset Dates Condition S tatus SNOMED Code Problem Arthritis M19.90 Active 1813062 Problem Mood disorder F39 Active 365111 05 Problem Gastroesophageal reflux disease without esophagitis K21.9 Active 200585031 Problem Slow transit constipation K59.01 Acti ve 53240535 Problem Seasonal allergic rhinitis, unspecified allergic rhinitis trigger J30.2 Active 753517069 ALLERGIES No Information ENCOUNTERS Encounter Location Date Diagnosis [facility] [address] [id number] [address] [place] [address] May, Well woman exam without gyne cological exam Z00.00 ; Screening for breast cancer Z12.31 and Screening for colon cancer Z12.11 [place] [address] [place] [id number] [place] [address] Jul, [facility] [address] [id number] [address] [place] [address] Jul, Mood disorder F39 [facility] [address] [id number] [address] [place] [address] Jul, Arthritis M19.90 and Mood di sorder F39 [facility] [address] [id number] [address] [place] [address] Jun, Elevated liver enzymes R74.8 [facility] [address] [id number] [address] [place] [address] Jun, [facility] [address] [id number] [address] [place] [address] May, Dysuria R30.0 ; Acute cystit is without hematuria N30.00 ; Abnormal findings on screening P09 and Abnormal levels of other serum enzymes R74.8 [facility] [address] [address] Apr, Elevated liver enzymes R74.8 [facility] [id number] [place] [address] 28 Jan, 2017 [facility] [address] [address] Jan, Elevated liver enzymes R74.8 [facility] [address] [address] 18 Jan, 2017 Mass in neck R22.1 and Arthr itis M19.90 [facility] [place] [address] [address] Aug, Abdominal pain R10.9 and Art hritis M19.90 [facility] [place] [address] [address] Jun, Acute non-recurrent pansinus itis J01.40 and Seasonal allergic rhinitis, unspecified allergic rhinitis trigger J30.2 [place] [address] [address] Apr, Gastroesophageal reflux dise ase without esophagitis K21.9 and Slow transit constipation K59.01 [place] [address] [address] Aug, [place] [address] [address] Aug, [place] [address] [address] Nov, [place] [address] [address] Nov, [place] [address] [address] Jun, [facility] [address] [id number] [address] [place] [address], [place] [address] Jun, [facility] [address] [id number] [address] [place] [address], [place] [address] May, [facility] [address] [id number] [address] [place] [address], [place] [address] May, [facility] [address] [id number] [address] [place] [address], [place] [address] May, [facility] [address] [id number] [address] [place] [address], [place] [address] May, [facility] [address] [id number] [address] [place] [address], [place] [address] May, [facility] [address] [id number] [address] [place] [address], [place] [address] Dec, [facility] [address] [id number] [address] [place] [address], [place] [address] Nov, [facility] [address] [id number] [address] [place] [address], [place] [address] Oct, [facility] [address] [id number] [address] [place] [address], [place] [address] Oct, [facility] [address] [id number] [address] [place] [address], [place] [address] Oct, [facility] [address] [id number] [address] [place] [address], [place] [address] Oct, [facility] [address] [id number] [address] [place] [address], [place] [address] Jul, [facility] [address] [id number] [address] [place] [address], [place] [address] Mar, [facility] [address] [id number] [address] [place] [address], [place] [address] Feb, [facility] [address] [id number] [address] [place] [address], [place] [address] 26 Feb, 2012 [facility] [address] [id number] [address] [place] [address], [place] [address] 08 Feb, 2012 [facility] [address] [id number] [address] [place] [address], [place] [address] 04 Feb, 2012 [facility] [address] [id number] [address] [place] [address], [place] [address] 03 Feb, 2012 [facility] [address] [id number] [address] [place] [address], [place] [address] 30 Sep, 2011 [facility] [address] [id number] [address] [place] [address], [place] [address] 29 Sep2011 [facility] [address] [id number] [address] [place] [address], [place] [address] 27 Sep2011 [facility] [address] [id number] [address] [place] [address], [place] [address] 18 Jan, 2012 [facility] [address] [id number] [address] [place] [address], [place] [address] 13 Jan, 2012 [facility] [address] [id number] [address] [place] [address], [place] [address] 11 Jan, 2012 [facility] [address] [id number] [address] [place] [address], [place] [address] 06 Jan, 2012 [facility] [address] [id number] [address] [place] [address] 02 Apr, 2010 [facility] [address] [id number] [address] [place] [address] 18 Apr, 2009 [facility] [address] [id number] [address] [place] [address], [place] [address] Mar, [facility] [address] [id number] [address] [place] [address] 09 Mar, 2009 [facility] [address] [id number] [address] [place] [address] 13 Feb, 2009 [facility] [address] [id number] [address] [place] [address] Nov, [facility] [address] [facility] [id number] [address] [place] [address] Oct, [facility] [address] [facility] [id number] [address] [place] [address] Aug, [facility] [address] [facility] [id number] [address] [place] [address] Jun, IMMUNIZATIONS No Known Immunizations SOCIAL HISTORY [...]
--- OUTSIDE RECORDS SUMMARY | 2019-10-01 16:53 | XMS REPORT ---
Author Author Carmencita SIMS Organization [facility] Address [address] [place] [address] Care Team Providers Care Borderer Name Role Phone MARISELA SIMS Unavailable PROBLEMS Type Condition ICD9-CM Code VBI61-DI Code Onset Dates Condition S tatus SNOMED Code Problem Slow transit constipation K59.01 Acti ve 06891097 Problem Hypercholesterolemia E78.00 Active 85837464 Problem Bladder spasm N32.89 Active 681585 006 Problem Gastroesophageal reflux disease without esophagitis K21.9 Active 610235544 Problem Seasonal allergic rhinitis, unspecified allergic rhinitis trigger J30.2 Active 761102715 Problem Arthritis M19.90 Active 6517059 Problem Mood disorder F39 Active 684305 05 ALLERGIES No Information ENCOUNTERS Encounter Location Date Diagnosis [facility] [address] [facility] [id number] [address] [place] [address] Dec, Dysuria R30.0 ; Bladder spas m N32.89 and Loose stools R19.5 [facility] [address] [id number] [place] [address] Nov, [facility] [address] [address] Nov, Gastroesophageal reflux disease without esophagitis K21.9 ; Leg pain, left M79.605 ; Arthritis M19.90 and Hypercholesterolemia E78.00 [facility] [address] [address] May, Well woman exam without gynecological ex am Z00.00 ; Screening for breast cancer Z12.31 and Screening for colon cancer Z12.11 [facility] [address] [address] Jul, [facility] [address] [address] Jul, Mood disorder F39 [place] [address] [address] Jul, Arthritis M19.90 and Mood disorder F39 [facility] [address] [address] Jun, Elevated liver enzymes R74.8 [facility] [place] [address] [address] Jun, [place] [address] [address] May, Dysuria R30.0 ; Acute cystitis without h ematuria N30.00 ; Abnormal findings on screening P09 and Abnormal levels of other serum enzymes R74.8 [place] [address] [address] Apr, Elevated liver enzymes R74.8 [place] [address] [address] Jan, [place] [address] [address] Jan, Elevated liver enzymes R74.8 [place] [address] [address] 18 Jan, 2017 Mass in neck R22.1 and Arthritis M19.90 [facility] [place] [address] [address] Aug, Abdominal pain R10.9 and Art hritis M19.90 [facility] [address] [address] 17 Jun, 2016 Acute non-recurrent pansinus itis J01.40 and Seasonal allergic rhinitis, unspecified allergic rhinitis trigger J30.2 [place] [address] [address] Apr, Gastroesophageal reflux disease without esophagitis K21.9 and Slow transit constipation K59.01 [facility] [address] [id number] [place] [address] 14 Aug, 2014 [facility] [address] [id number] [place] [address] Aug, [facility] [address] [id number] [place] [address] Nov, [facility] [address] [place] [address] [id number] [place] [address] Nov, [facility] [address] [id number] [place] [address] Jun, [facility] [address] [id number] [place] [address] Jun, [facility] [address] [id number] [place] [address] May, [facility] [address] [place] [address] [id number] [place] [address] May, [facility] [address] [id number] [place] [address] May, [facility] [address] [place] [address] [id number] [place] [address] May, [facility] [address] [id number] [place] [address] May, [facility] [address] [place] [address] [id number] [place] [address] Dec, [facility] [address] [id number] [place] [address] Nov, [facility] [address] [id number] [place] [address] Oct, [facility] [address] [id number] [place] [address] Oct, [facility] [address] [id number] [place] [address] Oct, [facility] [address] [id number] [place] [address] 14 Oct, 2012 [facility] [address] [id number] [place] [address] Jul, [facility] [address] [id number] [place] [address] Mar, [facility] [address] [id number] [place] [address] Feb, [facility] [address] [id number] [place] [address] Feb, [facility] [address] [id number] [place] [address] Feb, [facility] [address] [id number] [place] [address] Feb, [facility] [address] [id number] [place] [address] Feb, [facility] [address] [id number] [place] [address] 30 Sep, 2011 [facility] [address] [id number] [place] [address] 29 Sep2011 [facility] [address] [id number] [place] [address] 27 Sep2011 [facility] [address] [id number] [place] [address] 18 Sep, 2011 [facility] [address] [id number] [place] [address] 13 Sep, 2011 [facility] [address] [id number] [place] [address] 11 Sep, 2011 [facility] [id number] [place] [address] 06 Sep, 2011 [facility] [address] [id number] [place] [address] Apr, [facility] [address] [id number] [place] [address] Apr, [facility] [address] [id number] [place] [address] Mar, [facility] [address] [id number] [place] [address] Mar, [facility] [address] [id number] [place] [address] Feb, [facility] [address] [id number] [place] [address] Nov, [facility] [address] [id number] [place] [address] Oct, [facility] [address] [id number] [place] [address] Aug, [facility] [address] [id number] [place] [address] Jun, IMMUNIZATIONS No Known Immunizations SOCIAL HISTORY Never Assessed REASON FOR VISIT PLAN OF CARE VITAL SIGNS Height 63 in 2013-12-05 Weight 151 lbs 2013-12-05 Temperature 98 degrees Fahrenheit 2013-12-05 Heart Rate 80 bpm 2013-12-05 Respiratory Rate 18 2013-12-05 Blood pressure systolic 134 mmHg 2013-12-05 Blood pressure diastolic 82 mmHg 2013-12-05 MEDICATIONS No Known Medications RESULTS No Results PROCEDURES Procedure Date Ordered Result Body Site URINALYSIS, AUTO, W/O SCOPE December 05, 2013 INSTRUCTIONS MEDICATIONS ADMINISTERED No Known Medications MEDICAL (GENERAL) HISTORY Type Description Date Medical History arthritis diagnosed 10 years ago in [place] Medical History hespes virus Surgical History hysterectomy Surgical History cholecystectomy Surgical History left knee suregry Surgical History left breast biopsy Hospitalization History surgeries
--- OUTSIDE RECORDS SUMMARY | 2019-10-01 16:53 | XMS REPORT ---
Author Author Carmencita SIMS Organization [facility] Address [address] [place] [address] Care Team Providers Care Tractor Driver Teamster Name Role Phone MARISELA SIMS Unavailable PROBLEMS Type Condition ICD9-CM Code QAA05-OH Code Onset Dates Condition S tatus SNOMED Code Problem Mood disorder F39 Active 776098 05 Problem Hypercholesterolemia E78.00 Active 61837072 Problem Gastroesophageal reflux disease without esophagitis K21.9 Active 953395096 Problem Slow transit constipation K59.01 Acti ve 42713202 Problem Seasonal allergic rhinitis, unspecified allergic rhinitis trigger J30.2 Active 462594961 Problem Arthritis M19.90 Active 1699656 ALLERGIES No Information ENCOUNTERS Encounter Location Date Diagnosis [place] [address] [place] [id number] [place] [address] Nov, [address] [address] Nov, Gastroesophageal reflux dise ase without esophagitis K21.9 ; Leg pain, left M79.605 ; Arthritis M19.90 and Hypercholesterolemia E78.00 [place] [address] [place] [id number] [place] [address] May, Well woman exam without gyne cological exam Z00.00 ; Screening for breast cancer Z12.31 and Screening for colon cancer Z12.11 [place] [address] [place] [id number] [place] [address] Jul, [place] [address] [place] [id number] [place] [address] Jul, Mood disorder F39 [place] [address] [place] [id number] [place] [address] Jul, Arthritis M19.90 and Mood di sorder F39 [place] [address] [address] Jun, Elevated liver enzymes R74.8 [facility] [place] [address] [address] Jun, [place] [address] [address] May, Dysuria R30.0 ; Acute cystit is without hematuria N30.00 ; Abnormal findings on screening P09 and Abnormal levels of other serum enzymes R74.8 [place] [address] [address] Apr, Elevated liver enzymes R74.8 [place] [address] [address] Jan, [place] [address] [address] Jan, Elevated liver enzymes R74.8 [place] [address] [address] 18 Jan, 2017 Mass in neck R22.1 and Arthr itis M19.90 [facility] [place] [address] [address] Aug, Abdominal pain R10.9 and Art hritis M19.90 [facility] [place] [address] [address] 17 Jun, 2016 Acute non-recurrent pansinus itis J01.40 and Seasonal allergic rhinitis, unspecified allergic rhinitis trigger J30.2 [place] [address] [address] Apr, Gastroesophageal reflux dise ase without esophagitis K21.9 and Slow transit constipation K59.01 [place] [address] [address] Aug, [facility] [address] [id number] [address] [place] [address], [place] [address] Aug, [facility] [address] [id number] [address] [place] [address], [place] [address] Nov, [facility] [address] [id number] [address] [place] [address], [place] [address] Nov, [facility] [address] [id number] [address] [place] [address], [place] [address] Jun, [facility] [address] [id number] [address] [place] [address], [place] [address] Jun, [facility] [address] [id number] [address] [place] [address], [place] [address] May, [facility] [address] [id number] [address] [place] [address], [place] [address] May, [facility] [address] [id number] [address] [place] [address], [place] [address] May, [facility] [address] [id number] [address] [place] [address], [place] [address] May, [facility] [address] [id number] [address] [place] [address], [place] [address] May, [facility] [address] [id number] [address] [place] [address], [place] [address] Dec, [facility] [address] [id number] [address] [place] [address], [place] [address] Nov, [facility] [address] [id number] [address] [place] [address], [place] [address] Oct, [facility] [address] [id number] [address] [place] [address], [place] [address] Oct, [facility] [address] [id number] [address] [place] [address], [place] [address] Oct, [facility] [address] [id number] [address] [place] [address], [place] [address] 14 Oct, 2012 [facility] [address] [id number] [address] [place] [address], [place] [address] Jul, [facility] [address] [id number] [address] [place] [address], [place] [address] Mar, [facility] [address] [id number] [address] [place] [address], [place] [address] Feb, [facility] [address] [id number] [address] [place] [address], [place] [address] Feb, [facility] [address] [id number] [address] [place] [address], [place] [address] Feb, [facility] [address] [id number] [address] [place] [address], [place] [address] Feb, [facility] [address] [id number] [address] [place] [address], [place] [address] Feb, [facility] [address] [id number] [address] [place] [address], [place] [address] 30 Sep, 2011 [facility] [address] [id number] [address] [place] [address], [place] [address] 29 Sep, 2011 [facility] [address] [id number] [address] [place] [address], [place] [address] 27 Sep, 2011 [facility] [address] [id number] [address] [place] [address], [place] [address] 18 Sep, 2011 [facility] [address] [id number] [address] [place] [address], [place] [address] 13 Sep, 2011 [facility] [address] [id number] [address] [place] [address], [place] [address] 11 Sep, 2011 [facility] [address] [id number] [address] [place] [address], [place] [address] 06 Sep, 2011 [facility] [address] [id number] [address] [place] [address], [place] [address] 02 Apr, 2010 [facility] [address] [id number] [address] [place] [address] Apr, [facility] [address] [facility] [id number] [address] [place] [address] Mar, [facility] [address] [id number] [address] [place] [address] Mar, [facility] [address] [facility] [id number] [address] [place] [address] Feb, [facility] [address] [facility] [id number] [address] [place] [address] Nov, [facility] [address] [facility] [id number] [address] [place] [address] Oct, [facility] [address] [facility] [id number] [address] [place] [address] Aug, [facility] [address] [facility] [id number] [address] [place] [address] Jun, IMMUNIZATIONS No Known Immunizations SOCIAL HISTORY Never Assessed REASON FOR VISIT PLAN OF CARE VITAL SIGNS MEDICATIONS Unknown Medications RESULTS No Results PROCEDURES No Known procedures INSTRUCTIONS MEDICATIONS ADMINISTERED No Known Medications MEDICAL (GENERAL) HISTORY Type Description Date Medical History arthritis diagnosed 10 years ago in [place] Medical History hespes virus Surgical History hysterectomy Surgical History cholecystectomy Surgical History left knee suregry Surgical History left breast biopsy Hospitalization History surgeries
--- OUTSIDE RECORDS SUMMARY | 2019-10-01 16:54 | XMS REPORT ---
Author Author Carmencita LOCKETT Organization [facility] Address [address] [place] [address] Care Team Providers Care Box Spring Frame Builder Name Role Phone MARIALUISA LOCKETT Unavailable PROBLEMS Type Condition ICD9-CM Code XJF15-ZE Code Onset Dates Condition S tatus SNOMED Code Problem Mood disorder F39 Active 795027 05 Problem Arthritis M19.90 Active 9821614 Problem Gastroesophageal reflux disease without esophagitis K21.9 Active 649862498 Problem Seasonal allergic rhinitis, unspecified allergic rhinitis trigger J30.2 Active 654479538 Problem Slow transit constipation K59.01 Acti ve 45431225 ALLERGIES No Information ENCOUNTERS Encounter Location Date Diagnosis [facility] [address] [place] [id number] [address] [place] [address] Jul, [facility] [address] [place] [id number] [address] [place] [address] Jul, Mood disorder F39 [facility] [address] [address] Jul, Arthritis M19.90 and Mood di sorder F39 [facility] [address] [place] [id number] [address] [place] [address] Jun, Elevated liver enzymes R74.8 [facility] [address] [place] [id number] [address] [place] [address] Jun, [facility] [address] [address] May, Dysuria R30.0 ; Acute cystit is without hematuria N30.00 ; Abnormal findings on screening P09 and Abnormal levels of other serum enzymes R74.8 [facility] [address] [address] Apr, Elevated liver enzymes R74.8 [facility] [address] [facility] [id number] [address] [place] [address] 28 Jan, 2017 [facility] [address] [facility] [id number] [address] [place] [address] 20 Jan, 2017 Elevated liver enzymes R74.8 [facility] [address] [place] [id number] [address] [place] [address] 18 Jan, 2017 Mass in neck R22.1 and Arthr itis M19.90 [facility] [place] [address] [facility] [id number] [address] [place] [address] Aug, Abdominal pain R10.9 and Art hritis M19.90 [facility] [place] [address] [place] [id number] [address] [place] [address] 17 Jun, 2016 Acute non-recurrent pansinus itis J01.40 and Seasonal allergic rhinitis, unspecified allergic rhinitis trigger J30.2 [facility] [address] [place] [address] Apr, Gastroesophageal reflux dise ase without esophagitis K21.9 and Slow transit constipation K59.01 [facility] [address] [place] [id number] [address] [place] [address] 14 Aug, 2014 [facility] [address] [place] [id number] [address] [place] [address] Aug, [facility] [address] [place] [id number] [address] [place] [address] Nov, [facility] [address] [place] [id number] [address] [place] [address] Nov, [facility] [address] [place] [id number] [address] [place] [address] Jun, [facility] [address] [place] [id number] [address] [place] [address] Jun, [facility] [address] [place] [address] May, [facility] [address] [id number] [address] [place] [address], [place] [address] May, [facility] [address] [id number] [address] [place] [address], [place] [address] May, [facility] [address] [id number] [address] [place] [address], [place] [address] May, [facility] [address] [id number] [address] [place] [address], [place] [address] May, [facility] [address] [id number] [address] [place] [address], [place] [address] Dec, [facility] [address] [id number] [address] [place] [address], [place] [address] Nov, [facility] [address] [id number] [address] [place] [address], [place] [address] Oct, [facility] [address] [id number] [address] [place] [address], [place] [address] Oct, [facility] [address] [id number] [address] [place] [address], [place] [address] Oct, [facility] [address] [id number] [address] [place] [address], [place] [address] Oct, [facility] [address] [id number] [address] [place] [address], [place] [address] Jul, [facility] [address] [id number] [address] [place] [address], [place] [address] Mar, [facility] [address] [id number] [address] [place] [address], [place] [address] Feb, [facility] [address] [id number] [address] [place] [address], [place] [address] Feb, [facility] [address] [id number] [address] [place] [address], [place] [address] Feb, [facility] [address] [id number] [address] [place] [address], [place] [address] 04 Feb, 2012 [facility] [address] [id number] [address] [place] [address], [place] [address] 03 Feb, 2012 [facility] [address] [id number] [address] [place] [address], [place] [address] 30 Jan, 2011 [facility] [address] [id number] [address] [place] [address], [place] [address] 29 Sep, 2011 [facility] [address] [id number] [address] [place] [address], [place] [address] 27 Sep, 2011 [facility] [address] [id number] [address] [place] [address], [place] [address] 18 Jan, 2012 [facility] [address] [id number] [address] [place] [address], [place] [address] 13 Jan, 2012 [facility] [address] [id number] [address] [place] [address], [place] [address] 11 Jan, 2012 [facility] [address] [id number] [address] [place] [address], [place] [address] 06 Jan, 2012 [facility] [address] [id number] [address] [place] [address], [place] [address] Apr, [facility] [address] [id number] [address] [place] [address], [place] [address] Apr, [facility] [address] [id number] [address] [place] [address], [place] [address] Mar, [facility] [address] [id number] [address] [place] [address], [place] [address] Mar, [facility] [address] [id number] [address] [place] [address], [place] [address] Feb, [facility] [address] [id number] [address] [place] [address], [place] [address] Nov, [facility] [address] [id number] [address] [place] [address], [place] [address] Oct, [facility] [address] [facility] [id number] [address] [place] [address] Aug, [facility] [address] [facility] [id number] [address] [place] [address] Jun, IMMUNIZATIONS No Known Immunizations SOCIAL HISTORY Never Assessed REASON FOR VISIT Lab (walk-in) PLAN OF CARE VITAL SIGNS MEDICATIONS Unknown Medications RESULTS Name Result Date Reference Range GGT 2017-07-25 GGT 63 [id number] PROCEDURES Procedure Date Ordered Result Body Site ASSAY OF GGT Jul 25, 2017 VENIPUNCT, ROUTINE* Jul 25, 2017 INSTRUCTIONS MEDICATIONS ADMINISTERED No Known Medications MEDICAL (GENERAL) HISTORY Type Description Date Medical History arthritis diagnosed 10 years ago in [place] Medical History hespes virus Surgical History hysterectomy Surgical History cholecystectomy Surgical History left knee suregry Surgical History left breast biopsy
--- OUTSIDE RECORDS SUMMARY | 2019-10-01 16:54 | XMS REPORT ---
Author Author Carmencita Narayan Doctor Organization [facility] Address Unknown Phone Unavailable Care Team Providers Care Rheumatology Nurse Name Role Phone Migration, Doctor Unavailable Unavailable PROBLEMS Type Condition ICD9-CM Code [id number] Code Onset Dates Condition S tatus SNOMED Code Problem Arthritis M19.90 Active 8193796 Problem Mood disorder F39 Active 625125 05 Problem Gastroesophageal reflux disease without esophagitis K21.9 Active 671891329 Problem Slow transit constipation K59.01 Acti ve 86554416 Problem Seasonal allergic rhinitis, unspecified allergic rhinitis trigger J30.2 Active 935346211 ALLERGIES No Information ENCOUNTERS Encounter Location Date Diagnosis [facility] [address] [place] [id number] [address] [place] [address] May, Well woman exam without gyne cological exam Z00.00 ; Screening for breast cancer Z12.31 and Screening for colon cancer Z12.11 [place] [place] [id number] [address] [place] [address] Jul, [facility] [address] [place] [id number] [address] [place] [address] Jul, Mood disorder F39 [facility] [address] [place] [id number] [address] [place] [address] Jul, Arthritis M19.90 and Mood di sorder F39 [facility] [address] [place] [id number] [address] [place] [address] Jun, Elevated liver enzymes R74.8 [facility] [address] [place] [id number] [address] [place] [address] Jun, [facility] [address] [place] [id number] [address] [place] [address] May, Dysuria R30.0 ; Acute cystit is without hematuria N30.00 ; Abnormal findings on screening P09 and Abnormal levels of other serum enzymes R74.8 [facility] [address] [address] Apr, Elevated liver enzymes R74.8 [facility] [address] [place] [id number] [place] [address] 28 Jan, 2017 [facility] [address] [address] Jan, Elevated liver enzymes R74.8 [facility] [address] [address] 18 Jan, 2017 [place] in neck R22.1 and Arthr itis M19.90 [facility] IN [place] [address] [address] Aug, Abdominal pain R10.9 and Art hritis M19.90 [facility] IN [place] [address] [address] Jun, Acute non-recurrent pansinus itis J01.40 and Seasonal allergic rhinitis, unspecified allergic rhinitis trigger J30.2 [place] [address] [address] Apr, Gastroesophageal reflux dise ase without esophagitis K21.9 and Slow transit constipation K59.01 [place] [address] [address] Aug, [place] [address] [address] Aug, [place] [address] [address] Nov, [place] [address] [address] Nov, [place] [address] [address] Jun, [facility] [address] [id number] [address] [place] [address], [place] [address] Jun, [facility] [address] [id number] [address] [place] [address], [place] [address] May, [facility] [address] [id number] [address] [place] [address], [place] [address] May, [facility] [address] [id number] [address] [place] [address], [place] [address] May, [facility] [address] [id number] [address] [place] [address], [place] [address] May, [facility] [address] [id number] [address] [place] [address], [place] [address] May, [facility] [address] [id number] [address] [place] [address], [place] [address] Dec, [facility] [address] [id number] [address] [place] [address], [place] [address] Nov, [facility] [address] [id number] [address] [place] [address], [place] [address] Oct, [facility] [address] [id number] [address] [place] [address], [place] [address] Oct, [facility] [address] [id number] [address] [place] [address], [place] [address] Oct, [facility] [address] [id number] [address] [place] [address], [place] [address] Oct, [facility] [address] [id number] [address] [place] [address], [place] [address] Jul, [facility] [address] [id number] [address] [place] [address], [place] [address] Mar, [facility] [address] [id number] [address] [place] [address], [place] [address] Feb, [facility] [address] [id number] [address] [place] [address] [address] 26 Feb, 2012 [facility] [address] [id number] [address] [place] [address], [place] [address] 08 Feb, 2012 [facility] [address] [id number] [address] [place] [address], [place] [address] 04 Feb, 2012 [facility] [address] [id number] [address] [place] [address], [place] [address] 03 Feb, 2012 [facility] [address] [id number] [address] [place] [address], [place] [address] 30 Sep, 2011 [facility] [address] [id number] [address] [place] [address], [place] [address] 29 Sep2011 [facility] [address] [id number] [address] [place] [address] [address] 27 Sep2011 [facility] [address] [id number] [address] [place] [address], [place] [address] 18 Jan, 2012 [facility] [address] [id number] [address] [place] [address], [place] [address] 13 Jan, 2012 [facility] [address] [id number] [address] [place] [address], [place] [address] 11 Jan, 2012 [facility] [address] [id number] [address] [place] [address], [place] [address] 06 Jan, 2012 [facility] [address] [id number] [address] [place] [phone] 02 Apr, 2010 [facility] [address] [id number] [address] [place] [id number] 18 Apr, 2009 [facility] [address] [id number] [address] [place] [address], [place] [address] Mar, [facility] [address] [id number] [address] [place] [phone] 09 Mar, 2009 [facility] [address] [id number] [address] [place] [phone] 13 Feb, 2009 [facility] [address] [id number] [address] [place] [phone] Nov, [facility] [address] [facility] [id number] [address] [place] [phone] Oct, [facility] [address] [facility] [id number] [address] [place] [id number] Aug, [facility] [address] [facility] [id number] [address] [place] [id number] Jun, IMMUNIZATIONS No Known Immunizations SOCIAL HISTORY Never Assessed REASON FOR VISIT EMR-[facility] [place] PLAN OF CARE VITAL SIGNS MEDICATIONS [...]
--- OUTSIDE RECORDS SUMMARY | 2019-10-01 16:54 | XMS REPORT ---
Author Author Carmencita Narayan Doctor Organization [facility] Address Unknown Phone Unavailable Care Team Providers Care Forest Botany Instructor Name Role Phone Migration, Doctor Unavailable Unavailable PROBLEMS Type Condition ICD9-CM Code [id number] Code Onset Dates Condition S tatus SNOMED Code Problem Arthritis M19.90 Active 1929273 Problem Mood disorder F39 Active 789518 05 Problem Gastroesophageal reflux disease without esophagitis K21.9 Active 220863862 Problem Slow transit constipation K59.01 Acti ve 41325351 Problem Seasonal allergic rhinitis, unspecified allergic rhinitis trigger J30.2 Active 106144537 ALLERGIES No Information ENCOUNTERS Encounter Location Date Diagnosis [facility] [address] [id number] [address] [place] [address] May, Well woman exam without gyne cological exam Z00.00 ; Screening for breast cancer Z12.31 and Screening for colon cancer Z12.11 [place] [address] [place] [id number] [place] [address] Jul, [facility] [id number] [place] [address] Jul, Mood disorder F39 [facility] [id number] [place] [address] Jul, Arthritis M19.90 and Mood di sorder F39 [facility] [address] [place] [address] [id number] [address] [place] [address] Jun, Elevated liver enzymes R74.8 [facility] [address] [id number] [address] [place] [address] Jun, [facility] [address] [id number] [address] [place] [address] May, Dysuria R30.0 ; Acute cystit is without hematuria N30.00 ; Abnormal findings on screening P09 and Abnormal levels of other serum enzymes R74.8 [facility] [address] [address] Apr, Elevated liver enzymes R74.8 [facility] [address] [id number] [place] [address] 28 Jan, 2017 [facility] [address] [address] Jan, Elevated liver enzymes R74.8 [facility] [address] [address] 18 Jan, 2017 [place] in neck R22.1 and Arthr itis M19.90 [facility] [place] [address] [address] Aug, Abdominal pain R10.9 and Art hritis M19.90 [facility] [place] [address] [address] Jun, Acute non-recurrent pansinus itis J01.40 and Seasonal allergic rhinitis, unspecified allergic rhinitis trigger J30.2 [place] [address] [address] Apr, Gastroesophageal reflux dise ase without esophagitis K21.9 and Slow transit constipation K59.01 [place] [address] [address] Aug, [place] [address] [address] Aug, [place] [address] [address] Nov, [place] [address] [address] Nov, [place] [address] [address] Jun, [facility] [address] [id number] [address] [place] [address], [place] [address] Jun, [facility] [address] [id number] [address] [place] [address], [place] [address] May, [facility] [address] [id number] [address] [place] [address], [place] [address] May, [facility] [address] [id number] [address] [place] [address], [place] [address] May, [facility] [address] [id number] [address] [place] [address], [place] [address] May, [facility] [address] [id number] [address] [place] [address], [place] [address] May, [facility] [address] [id number] [address] [place] [address], [place] [address] Dec, [facility] [address] [id number] [address] [place] [address], [place] [address] Nov, [facility] [address] [id number] [address] [place] [address], [place] [address] Oct, [facility] [address] [id number] [address] [place] [address], [place] [address] Oct, [facility] [address] [id number] [address] [place] [address], [place] [address] Oct, [facility] [address] [id number] [address] [place] [address], [place] [address] Oct, [facility] [address] [id number] [address] [place] [address], [place] [address] Jul, [facility] [address] [id number] [address] [place] [address], [place] [address] Mar, [facility] [address] [id number] [address] [place] [address], [place] [address] Feb, [facility] [address] [id number] [address] [place] [address] [address] 26 Feb, 2012 [facility] [address] [id number] [address] [place] [address], [place] [address] 08 Feb, 2012 [facility] [address] [id number] [address] [place] [address], [place] [address] 04 Feb, 2012 [facility] [address] [id number] [address] [place] [address], [place] [address] 03 Feb, 2012 [facility] [address] [id number] [address] [place] [address], [place] [address] 30 Sep, 2011 [facility] [address] [id number] [address] [place] [address], [place] [address] 29 Sep2011 [facility] [address] [id number] [address] [place] [address] [address] 27 Sep2011 [facility] [address] [id number] [address] [place] [address], [place] [address] 18 Jan, 2012 [facility] [address] [id number] [address] [place] [address], [place] [address] 13 Jan, 2012 [facility] [address] [id number] [address] [place] [address], [place] [address] 11 Jan, 2012 [facility] [address] [id number] [address] [place] [address], [place] [address] 06 Jan, 2012 [facility] [address] [id number] [address] [place] [address] 02 Apr, 2010 [facility] [address] [id number] [address] [place] [address] 18 Apr, 2009 [facility] [address] [id number] [address] [place] [address], [place] [address] Mar, [facility] [address] [id number] [address] [place] [address] 09 Mar, 2009 [facility] [address] [id number] [address] [place] [address] 13 Feb, 2009 [facility] [address] [id number] [address] [place] [address] Nov, [facility] [address] [facility] [id number] [address] [place] [address] Oct, [facility] [address] [facility] [id number] [address] [place] [address] Aug, [facility] [address] [facility] [id number] [address] [place] [address] Jun, IMMUNIZATIONS No Known Immunizations SOCIAL HISTORY Never Assessed REASON FOR VISIT EMR-[facility] PLAN OF CARE [...]
--- OUTSIDE RECORDS SUMMARY | 2019-10-01 16:54 | XMS REPORT ---
Author Author Carmencita LOCKETT Organization [facility] Address [address] [place] [address] Care Team Providers Care Build Automation Engineer Name Role Phone MARIALUISA LOCKETT Unavailable PROBLEMS Type Condition ICD9-CM Code PHP27-YB Code Onset Dates Condition S tatus SNOMED Code Problem Mood disorder F39 Active 053146 05 Problem Arthritis M19.90 Active 1217838 Problem Gastroesophageal reflux disease without esophagitis K21.9 Active 707743270 Problem Seasonal allergic rhinitis, unspecified allergic rhinitis trigger J30.2 Active 741970148 Problem Slow transit constipation K59.01 Acti ve [id number] ALLERGIES No Information ENCOUNTERS Encounter Location Date Diagnosis [facility] [address] [id number] [place] [address] Jul, [facility] [address] [id number] [place] [address] Jul, Mood disorder F39 [facility] [address] [address] Jul, Arthritis M19.90 and Mood di sorder F39 [facility] [address] [id number] [place] [address] Jun, Elevated liver enzymes R74.8 [facility] [address] [place] [address] [id number] [address] [place] [address] Jun, [facility] [address] [address] May, Dysuria R30.0 ; Acute cystit is without hematuria N30.00 ; Abnormal findings on screening P09 and Abnormal levels of other serum enzymes R74.8 [facility] [address] [address] Apr, Elevated liver enzymes R74.8 [facility] [address] [facility] [id number] [address] [place] [address] 28 Jan, 2017 [facility] [address] [facility] [id number] [address] [place] [address] 20 Jan, 2017 Elevated liver enzymes R74.8 [facility] [address] [address] [id number] [address] [place] [address] 18 Jan, 2017 [place] in neck R22.1 and Arthr itis M19.90 [facility] [place] [address] [address] [facility] [id number] [address] [place] [address] Aug, Abdominal pain R10.9 and Art hritis M19.90 [facility] [place] [address] [place] [id number] [address] [place] [address] 17 Jun, 2016 Acute non-recurrent pansinus itis J01.40 and Seasonal allergic rhinitis, unspecified allergic rhinitis trigger J30.2 [facility] [address] [place] [address] Apr, Gastroesophageal reflux dise ase without esophagitis K21.9 and Slow transit constipation K59.01 [facility] [address] [id number] [address] [place] [address] 14 Aug, 2014 [facility] [address] [id number] [address] [place] [address] Aug, [facility] [address] [id number] [address] [place] [address] Nov, [facility] [address] [id number] [address] [place] [address] Nov, [facility] [address] [id number] [place] [address] Jun, [facility] [address] [id number] [address] [place] [address] Jun, [facility] [address] [place] [address] May, [facility] [address] [id number] [address] [place] [address], [place] [address] May, [facility] [address] [id number] [address] [place] [address], [place] [address] May, [facility] [address] [id number] [address] [place] [address], [place] [address] May, [facility] [address] [id number] [address] [place] [address], [place] [address] May, [facility] [address] [id number] [address] [place] [address], [place] [address] Dec, [facility] [address] [id number] [address] [place] [address], [place] [address] Nov, [facility] [address] [id number] [address] [place] [address], [place] [address] Oct, [facility] [address] [id number] [address] [place] [address], [place] [address] Oct, [facility] [address] [id number] [address] [place] [address], [place] [address] Oct, [facility] [address] [id number] [address] [place] [address], [place] [address] Oct, [facility] [address] [id number] [address] [place] [address], [place] [address] Jul, [facility] [address] [id number] [address] [place] [address], [place] [address] Mar, [facility] [address] [id number] [address] [place] [address], [place] [address] Feb, [facility] [address] [id number] [address] [place] [address], [place] [address] Feb, [facility] [address] [id number] [address] [place] [address], [place] [address] Feb, [facility] [address] [id number] [address] [place] [address], [place] [address] 04 Feb, 2012 [facility] [address] [id number] [address] [place] [address], [place] [address] 03 Feb, 2012 [facility] [address] [id number] [address] [place] [address], [place] [address] 30 Jan, 2011 [facility] [address] [id number] [address] [place] [address], [place] [address] 29 Sep, 2011 [facility] [address] [id number] [address] [place] [address], [place] [address] 27 Sep, 2011 [facility] [address] [id number] [address] [place] [address], [place] [address] 18 Jan, 2012 [facility] [address] [id number] [address] [place] [address], [place] [address] 13 Jan, 2012 [facility] [address] [id number] [address] [place] [address], [place] [address] 11 Jan, 2012 [facility] [address] [id number] [address] [place] [address], [place] [address] 06 Jan, 2012 [facility] [address] [id number] [address] [place] [address], [place] [address] Apr, [facility] [address] [id number] [address] [place] [address], [place] [address] Apr, [facility] [address] [id number] [address] [place] [address], [place] [address] Mar, [facility] [address] [id number] [address] [place] [address], [place] [address] Mar, [facility] [address] [id number] [address] [place] [address], [place] [address] Feb, [facility] [address] [id number] [address] [place] [address], [place] [address] Nov, [facility] [address] [id number] [address] [place] [address], [place] [address] Oct, [facility] [address] [facility] [id number] [address] [place] [address] Aug, [facility] [address] [facility] [id number] [address] [place] [address] Jun, IMMUNIZATIONS No Known Immunizations SOCIAL HISTORY Never Assessed REASON FOR VISIT BH/AT phone response PLAN OF CARE VITAL SIGNS MEDICATIONS Unknown Medications RESULTS No Results PROCEDURES No Known procedures INSTRUCTIONS MEDICATIONS ADMINISTERED No Known Medications MEDICAL (GENERAL) HISTORY Type Description Date Medical History arthritis diagnosed 10 years ago in [place] Medical History hespes virus Surgical History hysterectomy Surgical History cholecystectomy Surgical History left knee suregry Surgical History left breast biopsy
--- OUTSIDE RECORDS SUMMARY | 2019-10-01 16:54 | XMS REPORT ---
Author Author Carmencita Narayan Doctor Organization [facility] Address Unknown Phone Unavailable Care Team Providers Care Network Announcer Name Role Phone Migration, Doctor Unavailable Unavailable PROBLEMS Type Condition ICD9-CM Code HZE22-YO Code Onset Dates Condition S tatus SNOMED Code Problem Arthritis M19.90 Active 6423270 Problem Mood disorder F39 Active 467629 05 Problem Gastroesophageal reflux disease without esophagitis K21.9 Active 392187576 Problem Slow transit constipation K59.01 Acti ve 35910263 Problem Seasonal allergic rhinitis, unspecified allergic rhinitis trigger J30.2 Active 228779072 ALLERGIES No Information ENCOUNTERS Encounter Location Date Diagnosis [facility] [id number] [place] [address] September, [facility] [id number] [place] [address] May, Well woman exam without gyne cological exam Z00.00 ; Screening for breast cancer Z12.31 and Screening for colon cancer Z12.11 [facility] [address] [address] [id number] [place] [address] Jul, [facility] [address] [id number] [place] [address] Jul, Mood disorder F39 [facility] [id number] [place] [address] Jul, Arthritis M19.90 and Mood di sorder F39 [facility] [address] [place] [address] [id number] [place] [address] Jun, Elevated liver enzymes R74.8 [facility] [id number] [place] [address] Jun, [facility] [address] [id number] [place] [address] May, Dysuria R30.0 ; Acute cystit is without hematuria N30.00 ; Abnormal findings on screening P09 and Abnormal levels of other serum enzymes R74.8 [place] [address] [address] Apr, Elevated liver enzymes R74.8 [place] [address] [address] Jan, [place] [address] [address] Jan, Elevated liver enzymes R74.8 [place] [address] [address] 18 Jan, 2017 [place] in neck R22.1 and Arthr itis M19.90 [facility] [place] [address] [address] Aug, Abdominal pain R10.9 and Art hritis M19.90 [facility] [place] [address] [address] Jun, Acute non-recurrent pansinus itis J01.40 and Seasonal allergic rhinitis, unspecified allergic rhinitis trigger J30.2 [place] [address] [address] Apr, Gastroesophageal reflux dise ase without esophagitis K21.9 and Slow transit constipation K59.01 [place] [address] [address] Aug, [place] [address] [address] Aug, [place] [address] [address] Nov, [place] [address] [address] Nov, [facility] [address] [id number] [address] [place] [address], [place] [address] Jun, [facility] [address] [id number] [address] [place] [address], [place] [address] Jun, [facility] [address] [id number] [address] [place] [address], [place] [address] May, [facility] [address] [id number] [address] [place] [address], [place] [address] May, [facility] [address] [id number] [address] [place] [address], [place] [address] May, [facility] [address] [id number] [address] [place] [address], [place] [address] May, [facility] [address] [id number] [address] [place] [address], [place] [address] May, [facility] [address] [id number] [address] [place] [address], [place] [address] Dec, [facility] [address] [id number] [address] [place] [address], [place] [address] Nov, [facility] [address] [id number] [address] [place] [address], [place] [address] Oct, [facility] [address] [id number] [address] [place] [address], [place] [address] Oct, [facility] [address] [id number] [address] [place] [address], [place] [address] Oct, [facility] [address] [id number] [address] [place] [address], [place] [address] Oct, [facility] [address] [id number] [address] [place] [address], [place] [address] Jul, [facility] [address] [id number] [address] [place] [address], [place] [address] Mar, [facility] [address] [id number] [address] [place] [address], [place] [address] Feb, [facility] [address] [id number] [address] [place] [address], [place] [address] 26 Feb, 2012 [facility] [address] [id number] [address] [place] [address], [place] [address] 08 Feb, 2012 [facility] [address] [id number] [address] [place] [address], [place] [address] 04 Feb, 2012 [facility] [address] [id number] [address] [place] [address], [place] [address] 03 Feb, 2012 [facility] [address] [id number] [address] [place] [address], [place] [address] 30 Sep2011 [facility] [address] [id number] [address] [place] [address], [place] [address] 29 Sep, 2011 [facility] [address] [id number] [address] [place] [address], [place] [address] 27 Sep, 2011 [facility] [address] [id number] [address] [place] [address], [place] [address] 18 Sep2011 [facility] [address] [id number] [address] [place] [address], [place] [address] 13 Jan, 2012 [facility] [address] [id number] [address] [place] [address], [place] [address] 11 Jan, 2012 [facility] [address] [id number] [address] [place] [address], [place] [address] 06 Sep2011 [facility] [address] [id number] [address] [place] [id number] Apr, [facility] [address] [id number] [address] [address], [place] [address] Apr, [facility] [address] [id number] [address] [place] [address], [place] [address] Mar, [facility] [address] [id number] [address] [place] [address], [place] [address] Mar, [facility] [address] [id number] [address] [place] [id number] Feb, [facility] [address] [facility] [id number] [address] [place] [id number] Nov, [facility] [address] [facility] [id number] [address] [place] [id number] Oct, [facility] [address] [facility] [id number] [address] [place] [id number] Aug, [facility] [address] [facility] [id number] [address] [place] [id number] Jun, IMMUNIZATIONS No Known Immunizations SOCIAL HISTORY Never Assessed REASON FOR [place]IT [place] [place] VITAL SIGNS MEDICATIONS Unknown [...]
--- OUTSIDE RECORDS SUMMARY | 2019-10-01 16:54 | XMS REPORT ---
Author Author Carmencita Narayan Doctor Organization [facility] Address Unknown Phone Unavailable Care Team Providers Care Carton Stamper Name Role Phone Migration, Doctor Unavailable Unavailable PROBLEMS Type Condition ICD9-CM Code CPG44-VI Code Onset Dates Condition S tatus SNOMED Code Problem Arthritis M19.90 Active 1327388 Problem Mood disorder F39 Active 348113 05 Problem Gastroesophageal reflux disease without esophagitis K21.9 Active 875445438 Problem Slow transit constipation K59.01 Acti ve 94164055 Problem Seasonal allergic rhinitis, unspecified allergic rhinitis trigger J30.2 Active [id number] ALLERGIES No Information ENCOUNTERS Encounter Location Date Diagnosis [facility] [address] [id number] [address] [place] [address] September, [facility] [address] [id number] [address] [place] [address] May, Well woman exam without gyne cological exam Z00.00 ; Screening for breast cancer Z12.31 and Screening for colon cancer Z12.11 [facility] [address] [id number] [address] [place] [address] Jul, [facility] [address] [id number] [address] [place] [address] Jul, Mood disorder F39 [facility] [address] [id number] [place] [address] Jul, Arthritis M19.90 and Mood di sorder F39 [facility] [address] [id number] [place] [address] Jun, Elevated liver enzymes R74.8 [facility] [address] [id number] [address] [place] [address] Jun, [facility] [address] [id number] [place] [address] May, Dysuria R30.0 ; Acute cystit is without hematuria N30.00 ; Abnormal findings on screening P09 and Abnormal levels of other serum enzymes R74.8 [place] [address] [address] Apr, Elevated liver enzymes R74.8 [place] [address] [address] Jan, [place] [address] [address] Jan, Elevated liver enzymes R74.8 [place] [address] [address] 18 Jan, 2017 Mass in neck R22.1 and Arthr itis M19.90 [facility] WALK IN [place] [address] [address] Aug, Abdominal pain R10.9 and Art hritis M19.90 [facility] WALK [place] [address] [address] Jun, Acute non-recurrent pansinus itis J01.40 and Seasonal allergic rhinitis, unspecified allergic rhinitis trigger J30.2 [place] [address] [address] Apr, Gastroesophageal reflux dise ase without esophagitis K21.9 and Slow transit constipation K59.01 [place] [address] [address] Aug, [place] [address] [address] Aug, [place] [address] [address] Nov, [place] [address] [address] Nov, [facility] [address] [id number] [address] [place] [address], [place] [address] Jun, [facility] [address] [id number] [address] [place] [address], [place] [address] Jun, [facility] [address] [id number] [address] [place] [address], [place] [address] May, [facility] [address] [id number] [address] [place] [address], [place] [address] May, [facility] [address] [id number] [address] [place] [address], [place] [address] May, [facility] [address] [id number] [address] [place] [address], [place] [address] May, [facility] [address] [id number] [address] [place] [address], [place] [address] May, [facility] [address] [id number] [address] [place] [address], [place] [address] Dec, [facility] [address] [id number] [address] [place] [address], [place] [address] Nov, [facility] [address] [id number] [address] [place] [address], [place] [address] Oct, [facility] [address] [id number] [address] [place] [address], [place] [address] Oct, [facility] [address] [id number] [address] [place] [address], [place] [address] Oct, [facility] [address] [id number] [address] [place] [address], [place] [address] Oct, [facility] [address] [id number] [address] [place] [address], [place] [address] Jul, [facility] [address] [id number] [address] [place] [address], [place] [address] Mar, [facility] [address] [id number] [address] [place] [address], [place] [address] Feb, [facility] [address] [id number] [address] [place] [address], [place] [address] 26 Feb, 2012 [facility] [address] [id number] [address] [place] [address], [place] [address] 08 Feb, 2012 [facility] [address] [id number] [address] [place] [address], [place] [address] 04 Feb, 2012 [facility] [address] [id number] [address] [place] [address], [place] [address] 03 Feb, 2012 [facility] [address] [id number] [address] [place] [address], [place] [address] 30 Sep2011 [facility] [address] [id number] [address] [place] [address], [place] [address] 29 Sep, 2011 [facility] [address] [id number] [address] [place] [address], [place] [address] 27 Sep, 2011 [facility] [address] [id number] [address] [place] [address], [place] [address] 18 Sep2011 [facility] [address] [id number] [address] [place] [address], [place] [address] 13 Jan, 2012 [facility] [address] [id number] [address] [place] [address], [place] [address] 11 Jan, 2012 [facility] [address] [id number] [address] [place] [address], [place] [address] 06 Sep2011 [facility] [address] [id number] [address] [place] [address] Apr, [facility] [address] [id number] [address] [place] [address], [place] [address] Apr, [facility] [address] [id number] [address] [place] [address], [place] [address] Mar, [facility] [address] [id number] [address] [place] [address], [place] [address] Mar, [facility] [address] [id number] [address] [place] [address] Feb, [facility] [address] [facility] [id number] [address] [place] [address] Nov, [facility] [address] [facility] [id number] [address] [place] [address] Oct, [facility] [address] [facility] [id number] [address] [place] [address] Aug, [facility] [address] [facility] [id number] [address] [place] [address] Jun, IMMUNIZATIONS No Known Immunizations SOCIAL HISTORY Never Assessed REASON FOR VISIT [facility] [place] VITAL SIGNS MEDICATIONS Unknown [...]
--- OUTSIDE RECORDS SUMMARY | 2019-10-01 16:54 | XMS REPORT ---
Author Author Carmencita LOCKETT Organization [facility] Address [address] [place] [address] Care Team Providers Care Customer Development Manager Name Role Phone MARIALUISA LOCKETT Unavailable PROBLEMS Type Condition ICD9-CM Code BGW48-GW Code Onset Dates Condition S tatus SNOMED Code Problem Mood disorder F39 Active 275411 05 Problem Arthritis M19.90 Active 9083338 Problem Gastroesophageal reflux disease without esophagitis K21.9 Active 387778792 Problem Seasonal allergic rhinitis, unspecified allergic rhinitis trigger J30.2 Active 365190661 Problem Slow transit constipation K59.01 Acti ve 49919580 ALLERGIES No Information ENCOUNTERS Encounter Location Date Diagnosis [facility] [address] [id number] [address] [place] [address] Jul, [facility] [address] [id number] [address] [place] [address] Jul, Mood disorder F39 [facility] [address] [address] Jul, Arthritis M19.90 and Mood di sorder F39 [facility] [id number] [address] [place] [address] Jun, Elevated liver enzymes R74.8 [facility] [address] [place] [address] [id number] [address] [place] [address] Jun, [facility] [address] [address] May, Dysuria R30.0 ; Acute cystit is without hematuria N30.00 ; Abnormal findings on screening P09 and Abnormal levels of other serum enzymes R74.8 [facility] [address] [address] Apr, Elevated liver enzymes R74.8 [facility] [address] [facility] [id number] [address] [place] [address] 28 Jan, 2017 [facility] [address] [facility] [id number] [address] [place] [address] 20 Jan, 2017 Elevated liver enzymes R74.8 [facility] [address] [place] [id number] [address] [place] [address] 18 Jan, 2017 Mass in neck R22.1 and Arthr itis M19.90 [facility] WALK IN [place] [address] [address] [facility] [id number] [address] [place] [address] Aug, Abdominal pain R10.9 and Art hritis M19.90 [facility] WALK [place] [address] [place] [id number] [address] [place] [address] 17 Jun, 2016 Acute non-recurrent pansinus itis J01.40 and Seasonal allergic rhinitis, unspecified allergic rhinitis trigger J30.2 [facility] [address] [place] [address] Apr, Gastroesophageal reflux dise ase without esophagitis K21.9 and Slow transit constipation K59.01 [facility] [address] [place] [id number] [address] [place] [address] 14 Aug, 2014 [facility] [address] [id number] [address] [place] [address] Aug, [facility] [address] [id number] [address] [place] [address] Nov, [facility] [address] [id number] [address] [place] [address] Nov, [facility] [address] [id number] [place] [address] Jun, [facility] [address] [id number] [address] [place] [address] Jun, [facility] [address] [place] [address] May, [facility] [address] [id number] [address] [place] [address], [place] [address] May, [facility] [address] [id number] [address] [place] [address], [place] [address] May, [facility] [address] [id number] [address] [place] [address], [place] [address] May, [facility] [address] [id number] [address] [place] [address], [place] [address] May, [facility] [address] [id number] [address] [place] [address], [place] [address] Dec, [facility] [address] [id number] [address] [place] [address], [place] [address] Nov, [facility] [address] [id number] [address] [place] [address], [place] [address] Oct, [facility] [address] [id number] [address] [place] [address], [place] [address] Oct, [facility] [address] [id number] [address] [place] [address], [place] [address] Oct, [facility] [address] [id number] [address] [place] [address], [place] [address] Oct, [facility] [address] [id number] [address] [place] [address], [place] [address] Jul, [facility] [address] [id number] [address] [place] [address], [place] [address] Mar, [facility] [address] [id number] [address] [place] [address], [place] [address] Feb, [facility] [address] [id number] [address] [place] [address], [place] [address] Feb, [facility] [address] [id number] [address] [place] [address], [place] [address] Feb, [facility] [address] [id number] [address] [place] [address], [place] [address] 04 Feb, 2012 [facility] [address] [id number] [address] [place] [address], [place] [address] 03 Feb, 2012 [facility] [address] [id number] [address] [place] [address], [place] [address] 30 Jan, 2011 [facility] [address] [id number] [address] [place] [address], [place] [address] 29 Sep, 2011 [facility] [address] [id number] [address] [place] [address], [place] [address] 27 Sep, 2011 [facility] [address] [id number] [address] [place] [address], [place] [address] 18 Jan, 2012 [facility] [address] [id number] [address] [place] [address], [place] [address] 13 Jan, 2012 [facility] [address] [id number] [address] [place] [address], [place] [address] 11 Jan, 2012 [facility] [address] [id number] [address] [place] [address], [place] [address] 06 Jan, 2012 [facility] [address] [id number] [address] [place] [address], [place] [address] Apr, [facility] [address] [id number] [address] [place] [address], [place] [address] Apr, [facility] [address] [id number] [address] [place] [address], [place] [address] Mar, [facility] [address] [id number] [address] [place] [address], [place] [address] Mar, [facility] [address] [id number] [address] [place] [address], [place] [address] Feb, [facility] [address] [id number] [address] [place] [address], [place] [address] Nov, [facility] [address] [id number] [address] [place] [address], [place] [address] Oct, [facility] [address] [facility] [id number] [address] [place] [address] Aug, [facility] [address] [facility] [id number] [address] [place] [address] Jun, IMMUNIZATIONS No Known Immunizations SOCIAL HISTORY Never Assessed REASON FOR VISIT Lab results PLAN OF CARE VITAL SIGNS MEDICATIONS Unknown Medications RESULTS No Results PROCEDURES No Known procedures INSTRUCTIONS MEDICATIONS ADMINISTERED No Known Medications MEDICAL (GENERAL) HISTORY Type Description Date Medical History arthritis diagnosed 10 years ago in [place] Medical History hespes virus Surgical History hysterectomy Surgical History cholecystectomy Surgical History left knee suregry Surgical History left breast biopsy
--- OUTSIDE RECORDS SUMMARY | 2019-10-01 16:54 | XMS REPORT ---
Author Author Carmencita LOCKETT Organization [facility] Address [address] [place] [address] Care Team Providers Care Connection Worker Name Role Phone MARIALUISA LOCKETT Unavailable PROBLEMS Type Condition ICD9-CM Code SEI23-NP Code Onset Dates Condition S tatus SNOMED Code Problem Mood disorder F39 Active 371828 05 Problem Arthritis M19.90 Active 5737047 Problem Gastroesophageal reflux disease without esophagitis K21.9 Active 320624942 Problem Seasonal allergic rhinitis, unspecified allergic rhinitis trigger J30.2 Active 609475826 Problem Slow transit constipation K59.01 Acti ve 89502065 ALLERGIES Substance Reaction Event Type Date Status Tramadol HCl rash/ itching Drug Allergy Jul, Active SulfADIAZINE hives Drug Allergy Jul, Active Penicillin V Potassium hives Drug Allergy Jul, Activ e Pravastatin 40 Mg muscle pain..bb Non Drug Allergy Jul, Act josé miguel ENCOUNTERS Encounter Location Date Diagnosis [facility] [address] [id number] [address] [place] [address] Jul, [facility] [address] [id number] [address] [place] [address] Jul, Mood disorder F39 [facility] [address] [id number] [address] [place] [address] Jul, Arthritis M19.90 and Mood di sorder F39 [facility] [address] [id number] [address] [place] [address] Jun, Elevated liver enzymes R74.8 [facility] [address] [place] [id number] [address] [place] [address] Jun, [facility] [address] [id number] [address] [place] [address] May, Dysuria R30.0 ; Acute cystit is without hematuria N30.00 ; Abnormal findings on screening P09 and Abnormal levels of other serum enzymes R74.8 [facility] [address] [address] Apr, Elevated liver enzymes R74.8 [facility] [address] [place] [id number] [address] [place] [address] Jan, [place] [address] [address] Jan, Elevated liver enzymes R74.8 [place] [address] [address] 18 Jan, 2017 Mass in neck R22.1 and Arthr itis M19.90 [facility] WALK IN [address] [address] Aug, Abdominal pain R10.9 and Art hritis M19.90 [facility] WALK IN [place] [address] [address] Jun, Acute non-recurrent pansinus itis J01.40 and Seasonal allergic rhinitis, unspecified allergic rhinitis trigger J30.2 [place] [address] [address] Apr, Gastroesophageal reflux dise ase without esophagitis K21.9 and Slow transit constipation K59.01 [place] [address] [address] Aug, [place] [address] [address] Aug, [place] [address] [address] Nov, [place] [address] [place] [id number] [address] [place] [address] Nov, [place] [address] [address] Jun, [facility] [address] [id number] [address] [place] [address], [place] [address] Jun, [facility] [address] [id number] [address] [place] [address], [place] [address] May, [facility] [address] [id number] [address] [place] [address], [place] [address] May, [facility] [address] [id number] [address] [place] [address], [place] [address] May, [facility] [address] [id number] [address] [place] [address], [place] [address] May, [facility] [address] [id number] [address] [place] [address], [place] [address] May, [facility] [address] [id number] [address] [place] [address], [place] [address] Dec, [facility] [address] [id number] [address] [place] [address], [place] [address] Nov, [facility] [address] [id number] [address] [place] [address], [place] [address] Oct, [facility] [address] [id number] [address] [place] [address], [place] [address] Oct, [facility] [address] [id number] [address] [place] [address], [place] [address] Oct, [facility] [address] [id number] [address] [place] [address], [place] [address] Oct, [facility] [address] [id number] [address] [place] [address], [place] [address] Jul, [facility] [address] [id number] [address] [place] [address], [place] [address] Mar, [facility] [address] [id number] [address] [place] [address], [place] [address] Feb, [facility] [address] [id number] [address] [place] [address], [place] [address] 26 Feb, 2012 [facility] [address] [id number] [address] [place] [address], [place] [address] 08 Feb, 2012 [facility] [address] [id number] [address] [place] [address], [place] [address] 04 Feb, 2012 [facility] [address] [id number] [address] [place] [address], [place] [id number] 03 Feb, 2012 [facility] [address] [id number] [address] [place] [address], [place] [id number] 30 Sep, 2011 [facility] [address] [id number] [address] [place] [address], [place] [id number] 29 Sep, 2011 [facility] [address] [id number] [address] [place] [address], [place] [id number] 27 Sep, 2011 [facility] [address] [id number] [address] [place] [address], [place] [id number] 18 Sep, 2011 [facility] [address] [id number] [address] [place] [address], [place] [id number] 13 Sep2011 [facility] [address] [id number] [address] [place] [address], [place] [id number] 11 Jan, 2012 [facility] [address] [id number] [address] [place] [address], [place] [id number] 06 Jan, 2012 [facility] [address] [id number] [address] [place] [address], [place] [id number] 02 Apr, 2010 [facility] [address] [id number] [address] [place] [address], [place] [id number] 18 Apr, 2009 [facility] [address] [id number] [address] [place] [address], [place] [id number] Mar, [facility] [address] [id number] [address] [place] [address], [place] [id number] 09 Mar, 2009 [facility] [address] [id number] [address] [place] [address] [address] Feb, [facility] [address] [facility] [id number] [address] [place] [id number] Nov, [facility] [address] [facility] [id number] [address] [place] [id number] Oct, [facility] [address] [facility] [id number] [address] [place] [id number] Aug, [facility] [address] [facility] [id number] [address] [place] [id number] Jun, IMMUNIZATIONS No Known Immunizations SOCIAL HISTORY Never Assessed REASON FOR VISIT right leg pain walkin f/u, PT also has questions about her lab results flor gutierrez her Saul HAMM PLAN OF CARE Activity Details Follow Up 4 Weeks Reason:depression VITAL SIGNS Height 63 in 2017-08-04 Weight 154.0 lbs 2017-08-04 Temperature 98.2 degrees Fahrenheit 2017-08-04 Heart Rate 76 bpm 2017-08-04 Respiratory Rate 18 2017-08-04 BMI 27.28 kg/m2 2017-08-04 Blood pressure systolic 132 mmHg 2017-08-04 Blood pressure diastolic 80 mmHg 2017-08-04 MEDICATIONS Medication Instructions Dosage Frequency Start Date End Date Duration S mary Pantoprazole Sodium 40 mg Orally Once a day 1 tablet 24h Apr 30 day(s) Active Meloxicam 15 mg Orally Once a day 1 tablet 24h Jul, 8 M , 2017 30 day(s) Active Paroxetine HCl 20 mg Orally Once a day 1 tablet in the morning 24h Jul, 30 day(s) Active Aleve 220 MG Orally every 12 hrs 1 tablet as needed 12h Active Neurontin 300 MG Orally Three times a day 1 capsule 8h Jan, 30 day(s) Not-Taking RESULTS No Results PROCEDURES No Known procedures INSTRUCTIONS MEDICATIONS ADMINISTERED No Known Medications MEDICAL (GENERAL) HISTORY Type Description Date Medical History arthritis diagnosed 10 years ago in [place] Medical History hespes virus Surgical History hysterectomy Surgical History cholecystectomy Surgical History left knee suregry Surgical History left breast biopsy
--- OUTSIDE RECORDS SUMMARY | 2019-10-01 16:54 | XMS REPORT ---
Author Author Carmencita Narayan Doctor Organization [facility] Address Unknown Phone Unavailable Care Team Providers Care Hand Trucker Name Role Phone Migration, Doctor Unavailable Unavailable PROBLEMS Type Condition ICD9-CM Code [id number] Code Onset Dates Condition S tatus SNOMED Code Problem Arthritis M19.90 Active 8495203 Problem Mood disorder F39 Active 507823 05 Problem Gastroesophageal reflux disease without esophagitis K21.9 Active 484660308 Problem Slow transit constipation K59.01 Acti ve 07620590 Problem Seasonal allergic rhinitis, unspecified allergic rhinitis trigger J30.2 Active 201752336 ALLERGIES No Information ENCOUNTERS Encounter Location Date Diagnosis [facility] [address] [id number] [address] [place] [address] May, Well woman exam without gyne cological exam Z00.00 ; Screening for breast cancer Z12.31 and Screening for colon cancer Z12.11 [place] [address] [place] [id number] [address] [place] [address] Jul, [facility] [address] [id number] [address] [place] [address] Jul, Mood disorder F39 [facility] [address] [id number] [address] [place] [address] Jul, Arthritis M19.90 and Mood di sorder F39 [facility] [address] [place] [address] [id number] [address] [place] [address] Jun, Elevated liver enzymes R74.8 [facility] [address] [id number] [address] [place] [address] Jun, [facility] [address] [id number] [address] [place] [address] May, Dysuria R30.0 ; Acute cystit is without hematuria N30.00 ; Abnormal findings on screening P09 and Abnormal levels of other serum enzymes R74.8 [facility] [address] [address] Apr, Elevated liver enzymes R74.8 [facility] [address] [id number] [place] [address] 28 Jan, 2017 [facility] [address] [address] Jan, Elevated liver enzymes R74.8 [facility] [address] [address] 18 Jan, 2017 Mass in neck R22.1 and Arthr itis M19.90 [facility] [place] [address] [address] Aug, Abdominal pain R10.9 and Art hritis M19.90 [facility] [place] [address] [address] Jun, Acute non-recurrent pansinus itis J01.40 and Seasonal allergic rhinitis, unspecified allergic rhinitis trigger J30.2 [place] [address] [address] Apr, Gastroesophageal reflux dise ase without esophagitis K21.9 and Slow transit constipation K59.01 [place] [address] [address] Aug, [place] [address] [address] Aug, [place] [address] [address] Nov, [place] [address] [address] Nov, [place] [address] [address] Jun, [facility] [address] [id number] [address] [place] [address], [place] [address] Jun, [facility] [address] [id number] [address] [place] [address], [place] [address] May, [facility] [address] [id number] [address] [place] [address], [place] [address] May, [facility] [address] [id number] [address] [place] [address], [place] [address] May, [facility] [address] [id number] [address] [place] [address], [place] [address] May, [facility] [address] [id number] [address] [place] [address], [place] [address] May, [facility] [address] [id number] [address] [place] [address], [place] [address] Dec, [facility] [address] [id number] [address] [place] [address], [place] [address] Nov, [facility] [address] [id number] [address] [place] [address], [place] [address] Oct, [facility] [address] [id number] [address] [place] [address], [place] [address] Oct, [facility] [address] [id number] [address] [place] [address], [place] [address] Oct, [facility] [address] [id number] [address] [place] [address], [place] [address] Oct, [facility] [address] [id number] [address] [place] [address], [place] [address] Jul, [facility] [address] [id number] [address] [place] [address], [place] [address] Mar, [facility] [address] [id number] [address] [place] [address], [place] [address] Feb, [facility] [address] [id number] [address] [place] [address] [address] 26 Feb, 2012 [facility] [address] [id number] [address] [place] [address], [place] [address] 08 Feb, 2012 [facility] [address] [id number] [address] [place] [address], [place] [address] 04 Feb, 2012 [facility] [address] [id number] [address] [place] [address], [place] [address] 03 Feb, 2012 [facility] [address] [id number] [address] [place] [address], [place] [address] 30 Sep, 2011 [facility] [address] [id number] [address] [place] [address], [place] [address] 29 Sep2011 [facility] [address] [id number] [address] [place] [address] [address] 27 Sep2011 [facility] [address] [id number] [address] [place] [address], [place] [address] 18 Jan, 2012 [facility] [address] [id number] [address] [place] [address], [place] [address] 13 Jan, 2012 [facility] [address] [id number] [address] [place] [address], [place] [address] 11 Jan, 2012 [facility] [address] [id number] [address] [place] [address], [place] [address] 06 Jan, 2012 [facility] [address] [id number] [address] [place] [address] 02 Apr, 2010 [facility] [address] [id number] [address] [place] [address] 18 Apr, 2009 [facility] [address] [id number] [address] [place] [address], [place] [address] Mar, [facility] [address] [id number] [address] [place] [id number] 09 Mar, 2009 [facility] [address] [id number] [address] [place] [address] 13 Feb, 2009 [facility] [address] [id number] [address] [place] [address] Nov, [facility] [address] [facility] [id number] [address] [place] [address] Oct, [facility] [address] [facility] [id number] [address] [place] [address] Aug, [facility] [address] [facility] [id number] [address] [place] [address] Jun, IMMUNIZATIONS No Known Immunizations SOCIAL HISTORY Never Assessed REASON FOR VISIT [place] [place] VITAL SIGNS MEDICATIONS No [...]
--- OUTSIDE RECORDS SUMMARY | 2019-10-01 16:54 | XMS REPORT ---
Author Author Carmencita Narayan Doctor Organization [facility] Address Unknown Phone Unavailable Care Team Providers Care Supervisor Scenic Arts Name Role Phone Migration, Doctor Unavailable Unavailable PROBLEMS Type Condition ICD9-CM Code [id number] Code Onset Dates Condition S tatus SNOMED Code Problem Arthritis M19.90 Active 7851888 Problem Mood disorder F39 Active 228949 05 Problem Gastroesophageal reflux disease without esophagitis K21.9 Active 584606104 Problem Slow transit constipation K59.01 Acti ve 21769297 Problem Seasonal allergic rhinitis, unspecified allergic rhinitis trigger J30.2 Active 954624877 ALLERGIES No Information ENCOUNTERS Encounter Location Date Diagnosis [facility] [address] [id number] [address] [place] [address] May, Well woman exam without gyne cological exam Z00.00 ; Screening for breast cancer Z12.31 and Screening for colon cancer Z12.11 [place] [id number] [place] [id number] [address] [place] [address] Jul, [facility] [address] [id number] [address] [place] [address] Jul, Mood disorder F39 [facility] [address] [id number] [address] [place] [address] Jul, Arthritis M19.90 and Mood di sorder F39 [facility] [address] [place] [id number] [address] [place] [address] Jun, Elevated liver enzymes R74.8 [facility] [address] [place] [id number] [address] [place] [address] Jun, [facility] [address] [place] [id number] [address] [place] [address] May, Dysuria R30.0 ; Acute cystit is without hematuria N30.00 ; Abnormal findings on screening P09 and Abnormal levels of other serum enzymes R74.8 [facility] [address] [address] Apr, Elevated liver enzymes R74.8 [facility] [address] [id number] [place] [address] 28 Jan, 2017 [facility] [address] [address] Jan, Elevated liver enzymes R74.8 [facility] [address] [address] 18 Jan, 2017 Mass in neck R22.1 and Arthr itis M19.90 [facility] [place] [address] [address] Aug, Abdominal pain R10.9 and Art hritis M19.90 [facility] [place] [address] [address] Jun, Acute non-recurrent pansinus itis J01.40 and Seasonal allergic rhinitis, unspecified allergic rhinitis trigger J30.2 [place] [address] [address] Apr, Gastroesophageal reflux dise ase without esophagitis K21.9 and Slow transit constipation K59.01 [place] [address] [address] Aug, [place] [address] [address] Aug, [place] [address] [address] Nov, [place] [address] [address] Nov, [place] [address] [address] Jun, [facility] [address] [id number] [address] [place] [address], [place] [address] Jun, [facility] [address] [id number] [address] [place] [address], [place] [address] May, [facility] [address] [id number] [address] [place] [address], [place] [address] May, [facility] [address] [id number] [address] [place] [address], [place] [address] May, [facility] [address] [id number] [address] [place] [address], [place] [address] May, [facility] [address] [id number] [address] [place] [address], [place] [address] May, [facility] [address] [id number] [address] [place] [address], [place] [address] Dec, [facility] [address] [id number] [address] [place] [address], [place] [address] Nov, [facility] [address] [id number] [address] [place] [address], [place] [address] Oct, [facility] [address] [id number] [address] [place] [address], [place] [address] Oct, [facility] [address] [id number] [address] [place] [address], [place] [address] Oct, [facility] [address] [id number] [address] [place] [address], [place] [address] Oct, [facility] [address] [id number] [address] [place] [address], [place] [address] Jul, [facility] [address] [id number] [address] [place] [address], [place] [address] Mar, [facility] [address] [id number] [address] [place] [address], [place] [address] Feb, [facility] [address] [id number] [address] [place] [address] [address] 26 Feb, 2012 [facility] [address] [id number] [address] [place] [address], [place] [address] 08 Feb, 2012 [facility] [address] [id number] [address] [place] [address], [place] [address] 04 Feb, 2012 [facility] [address] [id number] [address] [place] [address], [place] [address] 03 Feb, 2012 [facility] [address] [id number] [address] [place] [address], [place] [address] 30 Sep, 2011 [facility] [address] [id number] [address] [place] [address], [place] [address] 29 Sep2011 [facility] [address] [id number] [address] [place] [address], [place] [address] 27 Sep2011 [facility] [address] [id number] [address] [place] [address], [place] [address] 18 Jan, 2012 [facility] [address] [id number] [address] [place] [address], [place] [address] 13 Jan, 2012 [facility] [address] [id number] [address] [place] [address], [place] [address] 11 Jan, 2012 [facility] [address] [id number] [address] [place] [address], [place] [address] 06 Jan, 2012 [facility] [address] [id number] [address] [place] [address] 02 Apr, 2010 [facility] [address] [id number] [address] [place] [address] 18 Apr, 2009 [facility] [address] [id number] [address] [place] [address], [place] [address] Mar, [facility] [address] [id number] [address] [place] [address] 09 Mar, 2009 [facility] [address] [id number] [address] [place] [address] 13 Feb, 2009 [facility] [address] [id number] [address] [place] [address] Nov, [facility] [address] [facility] [id number] [address] [place] [address] Oct, [facility] [address] [facility] [id number] [address] [place] [address] Aug, [facility] [address] [facility] [id number] [address] [place] [address] Jun, IMMUNIZATIONS No Known Immunizations SOCIAL HISTORY Never Assessed REASON FOR VISIT [place] [place] VITAL [...]
--- OUTSIDE RECORDS SUMMARY | 2019-10-01 16:54 | XMS REPORT ---
Author Author Carmencita Cooper Organization [facility] Address [address] [place] [address] Care Team Providers Care Physical Ther Name Role Phone Kenneth GREG Unavailable PROBLEMS Type Condition ICD9-CM Code [id number] Code Onset Dates Condition S tatus SNOMED Code Problem Mood disorder F39 Active 335024 05 Problem Arthritis M19.90 Active 2575789 Problem Gastroesophageal reflux disease without esophagitis K21.9 Active 009307160 Problem Seasonal allergic rhinitis, unspecified allergic rhinitis trigger J30.2 Active 626181722 Problem Slow transit constipation K59.01 Acti ve 43173409 ALLERGIES Substance Reaction Event Type Date Status Tramadol HCl rash/ itching Drug Allergy Jul, Active SulfADIAZINE hives Drug Allergy Jul, Active Penicillin V Potassium hives Drug Allergy Jul, Activ e Pravastatin 40 Mg muscle pain..bb Non Drug Allergy Jul, Act josé miguel ENCOUNTERS Encounter Location Date Diagnosis [facility] [address] [place] [id number] [address] [place] [address] Jul, [facility] [address] [place] [id number] [address] [place] [address] Jul, Mood disorder F39 [facility] [address] [place] [address] [id number] [address] [place] [address] Jul, Arthritis M19.90 and Mood di sorder F39 [facility] [address] [place] [address] [id number] [address] [place] [address] Jun, Elevated liver enzymes R74.8 [facility] [address] [place] [id number] [address] [place] [address] Jun, [facility] [address] [place] [address] [id number] [address] [place] [address] May, Dysuria R30.0 ; Acute cystit is without hematuria N30.00 ; Abnormal findings on screening P09 and Abnormal levels of other serum enzymes R74.8 [place] [address] [address] Apr, Elevated liver enzymes R74.8 [place] [address] [address] Jan, [place] [address] [address] Jan, Elevated liver enzymes R74.8 [place] [address] [address] 18 Jan, 2017 Mass in neck R22.1 and Arthr itis M19.90 [facility] [place] [address] [address] Aug, Abdominal pain R10.9 and Art hritis M19.90 [facility] [place] [address] [address] Jun, Acute non-recurrent pansinus itis J01.40 and Seasonal allergic rhinitis, unspecified allergic rhinitis trigger J30.2 [place] [address] [address] Apr, Gastroesophageal reflux dise ase without esophagitis K21.9 and Slow transit constipation K59.01 [place] [address] [address] Aug, [place] [address] [address] Aug, [place] [address] [address] Nov, [place] [address] [address] Nov, [facility] [address] [id number] [address] [place] [address], [place] [address] Jun, [facility] [address] [id number] [address] [place] [address], [place] [address] Jun, [facility] [address] [id number] [address] [place] [address], [place] [address] May, [facility] [address] [id number] [address] [place] [address], [place] [address] May, [facility] [address] [id number] [address] [place] [address], [place] [address] May, [facility] [address] [id number] [address] [place] [address], [place] [address] May, [facility] [address] [id number] [address] [place] [address], [place] [address] May, [facility] [address] [id number] [address] [place] [address], [place] [address] Dec, [facility] [address] [id number] [address] [place] [address], [place] [address] Nov, [facility] [address] [id number] [address] [place] [address], [place] [address] Oct, [facility] [address] [id number] [address] [place] [address], [place] [address] Oct, [facility] [address] [id number] [address] [place] [address], [place] [address] Oct, [facility] [address] [id number] [address] [place] [address], [place] [address] Oct, [facility] [address] [id number] [address] [place] [address], [place] [address] Jul, [facility] [address] [id number] [address] [place] [address], [place] [address] Mar, [facility] [address] [id number] [address] [place] [address], [place] [address] Feb, [facility] [address] [id number] [address] [place] [address], [place] [address] 26 Feb, 2012 [facility] [address] [id number] [address] [place] [address], [place] [address] 08 Feb, 2012 [facility] [address] [id number] [address] [place] [address], [place] [address] 04 Feb, 2012 [facility] [address] [id number] [address] [place] [address], [place] [address] 03 Feb, 2012 [facility] [address] [id number] [address] [place] [address], [place] [address] 30 Sep2011 [facility] [address] [id number] [address] [place] [address] [address] 29 Sep2011 [facility] [address] [id number] [address] [place] [address], [place] [address] 27 Jan, 2012 [facility] [address] [id number] [address] [place] [address], [place] [id number] 18 Jan, 2012 [facility] [address] [id number] [address] [place] [address], [place] [phone] 13 Jan, 2012 [facility] [address] [id number] [address] [place] [address], [place] [address] 11 Jan, 2012 [facility] [address] [id number] [address] [place] [address], [place] [address] 06 Jan, 2012 [facility] [address] [id number] [address] [place] [id number] Apr, [facility] [address] [id number] [address] [place] [address], [place] [address] Apr, [facility] [address] [id number] [address] [place] [address], [place] [address] Mar, [facility] [address] [id number] [address] [place] [address], [place] [address] Mar, [facility] [address] [id number] [address] [place] [phone] Feb, [facility] [address] [facility] [id number] [address] [place] [phone] Nov, [facility] [address] [facility] [id number] [address] [place] [id number] Oct, [facility] [address] [facility] [id number] [address] [place] [phone] Aug, [facility] [address] [facility] [id number] [address] [place] [phone] Jun, IMMUNIZATIONS No Known Immunizations SOCIAL HISTORY Never Assessed REASON FOR VISIT [facility] Contact PLAN OF CARE Activity Details Follow Up next available Reason:Depres stephen VITAL SIGNS MEDICATIONS Medication Instructions Dosage Frequency Start Date End Date Duration S tatus Paroxetine HCl 20 mg Orally Once a day 1 tablet in the morning 24h Jul, 30 day(s) Unknown Aleve 220 MG Orally every 12 hrs 1 tablet as needed 12h Unknown Meloxicam 15 mg Orally Once a day 1 tablet 24h Jul, 8 M , 2017 30 day(s) Unknown Pantoprazole Sodium 40 mg Orally Once a day 1 tablet 24h Apr 30 day(s) Unknown Neurontin 300 MG Orally Three times a day 1 capsule 8h Jan, 30 day(s) Unknown RESULTS No Results PROCEDURES Procedure Date Ordered Result Body Site Psych diagnostic evaluation, new patient August 04, 2017 INSTRUCTIONS MEDICATIONS ADMINISTERED No Known Medications MEDICAL (GENERAL) HISTORY Type Description Date Medical History arthritis diagnosed 10 years ago in [place] Medical History hespes virus Surgical History hysterectomy Surgical History cholecystectomy Surgical History left knee suregry Surgical History left breast biopsy
--- OUTSIDE RECORDS SUMMARY | 2019-10-01 16:54 | XMS REPORT ---
Author Author Carmencita LOCKETT Organization [facility] Address [address] [place] [address] Care Team Providers Care Muffle Operator Name Role Phone MARIALUISA LOCKETT Unavailable PROBLEMS Type Condition ICD9-CM Code LNK45-[id number] Code Onset Dates Condition S tatus SNOMED Code Problem Mood disorder F39 Active 590664 05 Problem Arthritis M19.90 Active 0924204 Problem Gastroesophageal reflux disease without esophagitis K21.9 Active 743499987 Problem Seasonal allergic rhinitis, unspecified allergic rhinitis trigger J30.2 Active 426092718 Problem Slow transit constipation K59.01 Acti ve [id number] ALLERGIES No Information ENCOUNTERS Encounter Location Date Diagnosis [facility] [address] [id number] [address] [place] [address] Jul, [facility] [address] [id number] [address] [place] [address] Jul, Mood disorder F39 [facility] [address] [address] Jul, Arthritis M19.90 and Mood di sorder F39 [facility] [address] [id number] [address] [place] [address] Jun, Elevated liver enzymes R74.8 [facility] [address] [id number] [address] [place] [address] Jun, [facility] [address] [address] May, Dysuria R30.0 ; Acute cystit is without hematuria N30.00 ; Abnormal findings on screening P09 and Abnormal levels of other serum enzymes R74.8 [facility] [address] [address] Apr, Elevated liver enzymes R74.8 [facility] [address] [facility] [id number] [address] [place] [address] 28 Jan, 2017 [facility] [address] [facility] [id number] [address] [place] [address] 20 Jan, 2017 Elevated liver enzymes R74.8 [facility] [address] [place] [address] [id number] [address] [place] [id number] 18 Jan, 2017 Mass in neck R22.1 and Arthr itis M19.[address] [facility] [place] [address] [address] [facility] [id number] [address] [place] [address] Aug, Abdominal pain R10.9 and Art hritis M19.[address] [facility] [place] [address] [place] [id number] [address] [place] [address] 17 Jun, 2016 Acute non-recurrent pansinus itis J01.40 and Seasonal allergic rhinitis, unspecified allergic rhinitis trigger J30.2 [facility] [address] [place] [address] Apr, Gastroesophageal reflux dise ase without esophagitis K21.9 and Slow transit constipation K59.01 [facility] [address] [place] [address] [id number] [address] [place] [address] 14 Aug, 2014 [facility] [address] [id number] [address] [place] [id number] Aug, [facility] [address] [id number] [address] [place] [address] Nov, [facility] [address] [id number] [address] [place] [address] Nov, [facility] [address] [id number] [address] [place] [address] Jun, [facility] [address] [id number] [address] [place] [address] Jun, [facility] [address] [place] [address] May, [facility] [address] [id number] [address] [place] [address], [place] [address] May, [facility] [address] [id number] [address] [place] [address], [place] [address] May, [facility] [address] [id number] [address] [place] [address], [place] [address] May, [facility] [address] [id number] [address] [place] [address], [place] [address] May, [facility] [address] [id number] [address] [place] [address], [place] [address] Dec, [facility] [address] [id number] [address] [place] [address], [place] [address] Nov, [facility] [address] [id number] [address] [place] [address], [place] [address] Oct, [facility] [address] [id number] [address] [place] [address], [place] [address] Oct, [facility] [address] [id number] [address] [place] [address], [place] [address] Oct, [facility] [address] [id number] [address] [place] [address], [place] [address] Oct, [facility] [address] [id number] [address] [place] [address], [place] [address] Jul, [facility] [address] [id number] [address] [place] [address], [place] [address] Mar, [facility] [address] [id number] [address] [place] [address], [place] [address] Feb, [facility] [address] [id number] [address] [place] [address], [place] [address] Feb, [facility] [address] [id number] [address] [place] [address], [place] [address] Feb, [facility] [address] [id number] [address] [place] [address], [place] [address] 04 Feb, 2012 [facility] [address] [id number] [address] [place] [address], [place] [address] 03 Feb, 2012 [facility] [address] [id number] [address] [place] [address], [place] [address] 30 Jan, 2011 [facility] [address] [id number] [address] [place] [address], [place] [address] 29 Sep, 2011 [facility] [address] [id number] [address] [place] [address], [place] [address] 27 Sep, 2011 [facility] [address] [id number] [address] [place] [address], [place] [address] 18 Jan, 2012 [facility] [address] [id number] [address] [place] [address], [place] [address] 13 Jan, 2012 [facility] [address] [id number] [address] [place] [address], [place] [address] 11 Jan, 2012 [facility] [address] [id number] [address] [place] [address], [place] [address] 06 Jan, 2012 [facility] [address] [id number] [address] [place] [address], [place] [address] Apr, [facility] [address] [id number] [address] [place] [address], [place] [address] Apr, [facility] [address] [id number] [address] [place] [address], [place] [address] Mar, [facility] [address] [id number] [address] [place] [address], [place] [address] Mar, [facility] [address] [id number] [address] [place] [address], [place] [address] Feb, [facility] [address] [id number] [address] [place] [address], [place] [address] Nov, [facility] [address] [id number] [address] [place] [address], [place] [address] Oct, [facility] [address] [facility] [id number] [address] [place] [address] Aug, [facility] [address] [facility] [id number] [address] [place] [address] Jun, IMMUNIZATIONS No Known Immunizations SOCIAL HISTORY Never Assessed [facility] PLAN OF CARE VITAL SIGNS MEDICATIONS Unknown Medications RESULTS No Results PROCEDURES Procedure Date Ordered Result Body Site COMPREHEN METABOLIC PANEL May 17, 2017 VENIPUNCT, ROUTINE* May 17, 2017 INSTRUCTIONS MEDICATIONS ADMINISTERED No Known Medications MEDICAL (GENERAL) HISTORY Type Description Date Medical History arthritis diagnosed 10 years ago in [place] Medical History hespes virus Surgical History hysterectomy Surgical History cholecystectomy Surgical History left knee suregry Surgical History left breast biopsy
--- OUTSIDE RECORDS SUMMARY | 2019-10-01 16:54 | XMS REPORT ---
Author Author Carmencita Narayan Doctor Organization [facility] Address Unknown Phone Unavailable Care Team Providers Care Defensive Driving Instructor Name Role Phone Migration, Doctor Unavailable Unavailable PROBLEMS Type Condition ICD9-CM Code RIV54-BU Code Onset Dates Condition S tatus SNOMED Code Problem Arthritis M19.90 Active 7610572 Problem Mood disorder F39 Active 937008 05 Problem Gastroesophageal reflux disease without esophagitis K21.9 Active 684425926 Problem Slow transit constipation K59.01 Acti ve 24187520 Problem Seasonal allergic rhinitis, unspecified allergic rhinitis trigger J30.2 Active 865359614 ALLERGIES No Information ENCOUNTERS Encounter Location Date Diagnosis [facility] [address] [id number] [address] [place] [address] May, Well woman exam without gyne cological exam Z00.00 ; Screening for breast cancer Z12.31 and Screening for colon cancer Z12.11 [place] [id number] [place] [id number] [address] Jul, [facility] [address] [id number] [address] [place] [address] Jul, Mood disorder F39 [facility] [address] [id number] [address] [place] [address] Jul, Arthritis M19.90 and Mood di sorder F39 [facility] [address] [place] [address] [id number] [address] [address] Jun, Elevated liver enzymes R74.8 [facility] [address] [place] [address] [id number] [address] [place] [address] Jun, [facility] [address] [place] [address] [id number] [address] [place] [address] May, Dysuria R30.0 ; Acute cystit is without hematuria N30.00 ; Abnormal findings on screening P09 and Abnormal levels of other serum enzymes R74.8 [facility] [address] [address] Apr, Elevated liver enzymes R74.8 [facility] [address] [place] [address] [id number] [place] [address] 28 Jan, 2017 [facility] [address] [address] Jan, Elevated liver enzymes R74.8 [facility] [address] [address] 18 Jan, 2017 Mass in neck R22.1 and Arthr itis M19.90 [facility] [place] [address] [address] Aug, Abdominal pain R10.9 and Art hritis M19.90 [facility] [place] [address] [address] Jun, Acute non-recurrent pansinus itis J01.40 and Seasonal allergic rhinitis, unspecified allergic rhinitis trigger J30.2 [place] [address] [address] Apr, Gastroesophageal reflux dise ase without esophagitis K21.9 and Slow transit constipation K59.01 [place] [address] [address] Aug, [place] [address] [address] Aug, [place] [address] [address] Nov, [place] [address] [address] Nov, [place] [address] [address] Jun, [facility] [address] [id number] [address] [place] [address], [place] [address] Jun, [facility] [address] [id number] [address] [place] [address], [place] [address] May, [facility] [address] [id number] [address] [place] [address], [place] [address] May, [facility] [address] [id number] [address] [place] [address], [place] [address] May, [facility] [address] [id number] [address] [place] [address], [place] [address] May, [facility] [address] [id number] [address] [place] [address], [place] [address] May, [facility] [address] [id number] [address] [place] [address], [place] [address] Dec, [facility] [address] [id number] [address] [place] [address], [place] [address] Nov, [facility] [address] [id number] [address] [place] [address], [place] [address] Oct, [facility] [address] [id number] [address] [place] [address], [place] [address] Oct, [facility] [address] [id number] [address] [place] [address], [place] [address] Oct, [facility] [address] [id number] [address] [place] [address], [place] [address] Oct, [facility] [address] [id number] [address] [place] [address], [place] [address] Jul, [facility] [address] [id number] [address] [place] [address], [place] [address] Mar, [facility] [address] [id number] [address] [place] [address], [place] [address] Feb, [facility] [address] [id number] [address] [place] [address] [address] 26 Feb, 2012 [facility] [address] [id number] [address] [place] [address], [place] [address] 08 Feb, 2012 [facility] [address] [id number] [address] [place] [address], [place] [address] 04 Feb, 2012 [facility] [address] [id number] [address] [place] [address], [place] [address] 03 Feb, 2012 [facility] [address] [id number] [address] [place] [address], [place] [address] 30 Sep, 2011 [facility] [address] [id number] [address] [place] [address], [place] [address] 29 Sep2011 [facility] [address] [id number] [address] [place] [address] [address] 27 Sep2011 [facility] [address] [id number] [address] [place] [address], [place] [address] 18 Jan, 2012 [facility] [address] [id number] [address] [place] [address], [place] [address] 13 Jan, 2012 [facility] [address] [id number] [address] [place] [address], [place] [address] 11 Jan, 2012 [facility] [address] [id number] [address] [place] [address], [place] [address] 06 Jan, 2012 [facility] [address] [id number] [address] [address] 02 Apr, 2010 [facility] [address] [id number] [address] [place] [address] 18 Apr, 2009 [facility] [address] [id number] [address] [place] [address], [place] [address] Mar, [facility] [address] [id number] [address] [place] [address] 09 Mar, 2009 [facility] [address] [id number] [address] [place] [address] 13 Feb, 2009 [facility] [address] [id number] [address] [place] [address] Nov, [facility] [address] [facility] [id number] [address] [place] [address] Oct, [facility] [address] [facility] [id number] [address] [place] [address] Aug, [facility] [address] [facility] [id number] [address] [place] [address] Jun, IMMUNIZATIONS No Known Immunizations SOCIAL HISTORY Never Assessed REASON FOR VISIT EMR-[facility] PLAN OF CARE VITAL SIGNS MEDICATIONS No [...]
[2019-10-01 16:55] VITALS: BP 124/75
--- OUTSIDE RECORDS SUMMARY | 2019-10-01 16:55 | XMS REPORT ---
Author Author Carmencita LOCKETT Organization [facility] Address [address] [place] [address] Care Team Providers Care Edge Blacker Name Role Phone MARIALUISA LOCKETT Unavailable PROBLEMS Type Condition ICD9-CM Code [id number] Code Onset Dates Condition S tatus SNOMED Code Problem Mood disorder F39 Active 441287 05 Problem Arthritis M19.90 Active 7546679 Problem Gastroesophageal reflux disease without esophagitis K21.9 Active 008810944 Problem Seasonal allergic rhinitis, unspecified allergic rhinitis trigger J30.2 Active 287299966 Problem Slow transit constipation K59.01 Acti ve [id number] ALLERGIES Substance Reaction Event Type Date Status Tramadol HCl rash/ itching Drug Allergy May, Active SulfADIAZINE hives Drug Allergy May, Active Penicillin V Potassium hives Drug Allergy May, Activ e Pravastatin 40 Mg muscle pain..bb Non Drug Allergy May, Act josé miguel ENCOUNTERS Encounter Location Date Diagnosis [facility] [id number] [place] [address] Jul, [facility] [address] [id number] [place] [address] Jul, Mood disorder F39 [facility] [id number] [place] [address] Jul, Arthritis M19.90 and Mood di sorder F39 [facility] [id number] [place] [address] Jun, Elevated liver enzymes R74.8 [facility] [address] [id number] [address] [place] [address] Jun, [facility] [id number] [place] [address] May, Dysuria R30.0 ; Acute cystit is without hematuria N30.00 ; Abnormal findings on screening P09 and Abnormal levels of other serum enzymes R74.8 [facility] [address] [address] Apr, Elevated liver enzymes R74.8 [facility] [address] [id number] [address] [place] [address] Jan, [place] [address] [address] Jan, Elevated liver enzymes R74.8 [place] [address] [address] 18 Jan, 2017 Mass in neck R22.1 and Arthr itis M19.90 [facility] [address] [address] Aug, Abdominal pain R10.9 and Art hritis M19.90 [facility] [place] [address] [address] Jun, Acute non-recurrent pansinus itis J01.40 and Seasonal allergic rhinitis, unspecified allergic rhinitis trigger J30.2 [place] [address] [address] Apr, Gastroesophageal reflux dise ase without esophagitis K21.9 and Slow transit constipation K59.01 [place] [address] [address] Aug, [place] [address] [address] Aug, [place] [address] [address] Nov, [place] [address] [place] [id number] [address] [place] [address] Nov, [place] [address] [address] Jun, [facility] [address] [id number] [address] [place] [address], [place] [address] Jun, [facility] [address] [id number] [address] [place] [address], [place] [address] May, [facility] [address] [id number] [address] [place] [address], [place] [address] May, [facility] [address] [id number] [address] [place] [address], [place] [address] May, [facility] [address] [id number] [address] [place] [address], [place] [address] May, [facility] [address] [id number] [address] [place] [address], [place] [address] May, [facility] [address] [id number] [address] [place] [address], [place] [address] Dec, [facility] [address] [id number] [address] [place] [address], [place] [address] Nov, [facility] [address] [id number] [address] [place] [address], [place] [address] Oct, [facility] [address] [id number] [address] [place] [address], [place] [address] Oct, [facility] [address] [id number] [address] [place] [address], [place] [address] Oct, [facility] [address] [id number] [address] [place] [address], [place] [address] Oct, [facility] [address] [id number] [address] [place] [address], [place] [address] Jul, [facility] [address] [id number] [address] [place] [address], [place] [address] Mar, [facility] [address] [id number] [address] [place] [address], [place] [address] Feb, [facility] [address] [id number] [address] [place] [address], [place] [address] 26 Feb, 2012 [facility] [address] [id number] [address] [place] [address], [place] [address] 08 Feb, 2012 [facility] [address] [id number] [address] [place] [address], [place] [address] 04 Feb, 2012 [facility] [address] [id number] [address] [place] [address], [place] [address] 03 Feb, 2012 [facility] [address] [id number] [address] [place] [address], [place] [address] 30 Sep, 2011 [facility] [address] [id number] [address] [place] [address], [place] [address] 29 Sep, 2011 [facility] [address] [id number] [address] [place] [address], [place] [address] 27 Sep, 2011 [facility] [address] [id number] [address] [place] [address], [place] [address] 18 Sep, 2011 [facility] [address] [id number] [address] [place] [address], [place] [address] 13 Sep2011 [facility] [address] [id number] [address] [place] [address], [place] [address] 11 Jan, 2012 [facility] [address] [id number] [address] [place] [address], [place] [address] 06 Jan, 2012 [facility] [address] [id number] [address] [place] [address], [place] [address] 02 Apr, 2010 [facility] [address] [id number] [address] [place] [address], [place] [address] 18 Apr, 2009 [facility] [address] [id number] [address] [place] [address], [place] [address] Mar, [facility] [address] [id number] [address] [place] [address], [place] [address] 09 Mar, 2009 [facility] [address] [id number] [address] [place] [address] [address] Feb, [facility] [address] [facility] [id number] [address] [place] [address] Nov, [facility] [address] [facility] [id number] [address] [place] [address] Oct, [facility] [address] [facility] [id number] [address] [place] [address] Aug, [facility] [address] [facility] [id number] [address] [place] [address] Jun, IMMUNIZATIONS No Known Immunizations SOCIAL HISTORY Never Assessed REASON FOR VISIT shoulder pain- had a lot of pain in her left shoulder, when appt was scheduled, states she also needs to follow up on lab-, has pain in her stomach as well for 2 weeks, burn with urination-- Luis Ruiz RN PLAN OF CARE VITAL SIGNS Height 63 in 2017-06-19 Weight 147 lbs 2017-06-19 Temperature 99.2 degrees Fahrenheit 2017-06-19 Heart Rate 88 bpm 2017-06-19 Respiratory Rate 18 2017-06-19 BMI 26.04 kg/m2 2017-06-19 Blood pressure systolic 138 mmHg 2017-06-19 Blood pressure diastolic 82 mmHg 2017-06-19 MEDICATIONS Medication Instructions Dosage Frequency Start Date End Date Duration S tatus Pantoprazole Sodium 40 mg Orally Once a day 1 tablet 24h Apr 30 day(s) Active Cipro 500 mg Orally Twice a day 1 tablet 12h May, 1 Jun, 201 8 10 day(s) Active Neurontin 300 MG Orally Three times a day 1 capsule 8h Jan, 30 day(s) Not-Taking Aleve 220 MG Orally every 12 hrs 1 tablet as needed 12h Not-Taking RESULTS Name Result Date Reference Range UA LONG DIP (IN HOUSE) 2017-06-19 Lot # [id number] Exp date 03/28/2018 Clarity Clear Color yellow Odor none GLU Negative BATSHEVA Negtive KET Negative SG 1.010 BLO Negative pH 6.0 Protein Negative URO 0.2 NIT Negative CORRINE 1+ Lot # Exp date GGT 2017-06-19 GGT 32 3-70 PROCEDURES Procedure Date Ordered Result Body Site URINALYSIS, AUTO, W/O SCOPE Jun 19, 2017 ASSAY OF GGT Jun 19, 2017 VENIPUNCT, ROUTINE* Jun 19, 2017 INSTRUCTIONS MEDICATIONS ADMINISTERED No Known Medications MEDICAL (GENERAL) HISTORY Type Description Date Medical History arthritis diagnosed 10 years ago in [place] Medical History hespes virus Surgical History hysterectomy Surgical History cholecystectomy Surgical History left knee suregry Surgical History left breast biopsy
--- OUTSIDE RECORDS SUMMARY | 2019-10-01 16:55 | XMS REPORT ---
Author Author Carmencita LOCKETT Organization [facility] Address [address] [place] [address] Care Team Providers Care Lever Operator Name Role Phone MARIALUISA LOCKETT Unavailable PROBLEMS Type Condition ICD9-CM Code [id number] Code Onset Dates Condition S tatus SNOMED Code Problem Mood disorder F39 Active 574614 05 Problem Arthritis M19.90 Active 7310299 Problem Gastroesophageal reflux disease without esophagitis K21.9 Active 100816244 Problem Seasonal allergic rhinitis, unspecified allergic rhinitis trigger J30.2 Active 130713646 Problem Slow transit constipation K59.01 Acti ve 41391854 ALLERGIES Substance Reaction Event Type Date Status Tramadol HCl rash/ itching Drug Allergy Jan, Active SulfADIAZINE hives Drug Allergy Jan, Active Penicillin V Potassium hives Drug Allergy Jan, Activ e Pravastatin 40 Mg muscle pain..bb Non Drug Allergy Jan, Act josé miguel ENCOUNTERS Encounter Location Date Diagnosis [facility] [id number] [place] [address] Jul, [facility] [id number] [place] [address] Jul, Mood disorder F39 [facility] [id number] [place] [address] Jul, Arthritis M19.90 and Mood di sorder F39 [facility] [id number] [place] [address] Jun, Elevated liver enzymes R74.8 [facility] [address] [id number] [address] [place] [address] Jun, [facility] [id number] [place] [address] May, Dysuria R30.0 ; Acute cystit is without hematuria N30.00 ; Abnormal findings on screening P09 and Abnormal levels of other serum enzymes R74.8 [facility] [address] [address] Apr, Elevated liver enzymes R74.8 [facility] [address] [id number] [address] [place] [address] Jan, [place] [address] [address] Jan, Elevated liver enzymes R74.8 [place] [address] [address] 18 Jan, 2017 Mass in neck R22.1 and Arthr itis M19.90 [facility] [address] [address] Aug, Abdominal pain R10.9 and Art hritis M19.90 [facility] [place] [address] [address] Jun, Acute non-recurrent pansinus itis J01.40 and Seasonal allergic rhinitis, unspecified allergic rhinitis trigger J30.2 [place] [address] [address] Apr, Gastroesophageal reflux dise ase without esophagitis K21.9 and Slow transit constipation K59.01 [place] [address] [address] Aug, [place] [address] [address] Aug, [place] [address] [address] Nov, [place] [address] [place] [id number] [address] [place] [address] Nov, [place] [address] [address] Jun, [facility] [address] [id number] [address] [place] [address], [place] [address] Jun, [facility] [address] [id number] [address] [place] [address], [place] [address] May, [facility] [address] [id number] [address] [place] [address], [place] [address] May, [facility] [address] [id number] [address] [place] [address], [place] [address] May, [facility] [address] [id number] [address] [place] [address], [place] [address] May, [facility] [address] [id number] [address] [place] [address], [place] [address] May, [facility] [address] [id number] [address] [place] [address], [place] [address] Dec, [facility] [address] [id number] [address] [place] [address], [place] [address] Nov, [facility] [address] [id number] [address] [place] [address], [place] [address] Oct, [facility] [address] [id number] [address] [place] [address], [place] [address] Oct, [facility] [address] [id number] [address] [place] [address], [place] [address] Oct, [facility] [address] [id number] [address] [place] [address], [place] [address] Oct, [facility] [address] [id number] [address] [place] [address], [place] [address] Jul, [facility] [address] [id number] [address] [place] [address], [place] [address] Mar, [facility] [address] [id number] [address] [place] [address], [place] [address] Feb, [facility] [address] [id number] [address] [place] [address], [place] [address] 26 Feb, 2012 [facility] [address] [id number] [address] [place] [address], [place] [address] 08 Feb, 2012 [facility] [address] [id number] [address] [place] [address], [place] [address] 04 Feb, 2012 [facility] [address] [id number] [address] [place] [address], [place] [address] 03 Feb, 2012 [facility] [address] [id number] [address] [place] [address], [place] [address] 30 Sep, 2011 [facility] [address] [id number] [address] [place] [address], [place] [address] 29 Sep, 2011 [facility] [address] [id number] [address] [place] [address], [place] [address] 27 Sep, 2011 [facility] [address] [id number] [address] [place] [address], [place] [address] 18 Sep, 2011 [facility] [address] [id number] [address] [place] [address], [place] [address] 13 Sep2011 [facility] [address] [id number] [address] [place] [address], [place] [address] 11 Jan, 2012 [facility] [address] [id number] [address] [place] [address], [place] [address] 06 Jan, 2012 [facility] [address] [id number] [address] [place] [address], [place] [address] 02 Apr, 2010 [facility] [address] [id number] [address] [place] [address], [place] [address] 18 Apr, 2009 [facility] [address] [id number] [address] [place] [address], [place] [address] Mar, [facility] [address] [id number] [address] [place] [address], [place] [address] 09 Mar, 2009 [facility] [address] [id number] [address] [place] [address] [address] Feb, [facility] [address] [facility] [id number] [address] [place] [address] Nov, [facility] [address] [facility] [id number] [address] [place] [address] Oct, [facility] [address] [facility] [id number] [address] [place] [address] Aug, [facility] [address] [facility] [id number] [address] [place] [address] Jun, IMMUNIZATIONS No Known Immunizations SOCIAL HISTORY Never Assessed REASON FOR VISIT Pain (acute) Has knot on left side of neck and has throbbing from neck down to shoulder and down arm. CBrumbackRN PLAN OF CARE VITAL SIGNS Height 63 in 2017-02-13 Weight 148.7 lbs 2017-02-13 Temperature 98.8 degrees Fahrenheit 2017-02-13 Heart Rate 88 bpm 2017-02-13 Respiratory Rate 20 2017-02-13 BMI 26.34 kg/m2 2017-02-13 Blood pressure systolic 136 mmHg 2017-02-13 Blood pressure diastolic 78 mmHg 2017-02-13 MEDICATIONS Medication Instructions Dosage Frequency Start Date End Date Duration S tatus Neurontin 300 MG Orally Three times a day 1 capsule 8h Jan, 30 day(s) Active Aleve 220 MG Orally every 12 hrs 1 tablet as needed 12h Active Tramadol HCl 50 mg Orally every 6 hrs 1 tablet as needed 6h Apr, Active RESULTS Name Result Date Reference Range ASO 2017-02-13 Antistreptolysin O Ab 86.5 0.0-200.0 TSH 2017-02-13 TSH 1.460 0.450-4.500 RA (RHEUMATOID) FACTOR 2017-02-13 RA Latex Turbid. <10.0 0.0-13.9 CRP 2017-02-13 C-Reactive Protein, Quant 7.4 0.0-4. 9 ABIGAIL 2017-02-13 Antinuclear Antibodies, IFA Negative CMP 2017-02-13 Glucose, Serum 174 65-99 BUN 16 6-24 Creatinine, Serum 0.50 0.57-1.00 eGFR If NonAfricn Am 107 >59 eGFR If Africn Am 123 >59 BUN/Creatinine Ratio 32 9-23 Sodium, Serum 139 134-144 Potassium, Serum 3.7 3.5-5.2 Chloride, Serum 100 96-106 Carbon Dioxide, Total 20 18-29 Calcium, Serum 9.3 8.7-10.2 Protein, Total, Serum 6.8 6.0-8.5 Albumin, Serum 4.5 3.5-5.5 Globulin, Total 2.3 1.5-4.5 A/G Ratio 2.0 1.2-2.2 Bilirubin, Total <0.2 0.0-1.2 Alkaline Phosphatase, S 129 39-117 AST (SGOT) 20 0-40 ALT (SGPT) 26 0-32 CBC 2017-02-13 WBC 8.6 3.4-10.8 RBC 4.92 3.77-5.28 Hemoglobin 13.5 11.1-15.9 Hematocrit 40.2 34.0-46.6 MCV 82 79-97 MCH 27.4 26.6-33.0 MCHC 33.6 31.5-35.7 RDW 13.7 12.3-15.4 Platelets 188 150-379 Neutrophils 60 Lymphs 29 Monocytes 6 Eos 4 Basos 1 Neutrophils (Absolute) 5.1 1.4-7.0 Lymphs (Absolute) 2.5 0.7-3.1 Monocytes(Absolute) 0.6 0.1-0.9 Eos (Absolute) 0.4 0.0-0.4 Baso (Absolute) 0.0 0.0-0.2 Immature Granulocytes 0 Immature Grans (Abs) 0.0 0.0-0.1 PROCEDURES Procedure Date Ordered Result Body Site VENIPUNCT, ROUTINE* Feb 13, 2017 ASSAY THYROID STIM HORMONE Feb 13, 2017 ANTINUCLEAR ANTIBODIES Feb 13, 2017 RHEUMATOID FACTOR, QUANT Feb 13, 2017 ANTISTREPTOLYSIN O, TITER Feb 13, 2017 COMPLETE CBC W/AUTO DIFF WBC Feb 13, 2017 C-REACTIVE PROTEIN Feb 13, 2017 COMPREHEN METABOLIC PANEL Feb 13, 2017 INSTRUCTIONS MEDICATIONS ADMINISTERED No Known Medications MEDICAL (GENERAL) HISTORY Type Description Date Medical History arthritis diagnosed 10 years ago in [place] Medical History hespes virus Surgical History hysterectomy Surgical History cholecystectomy Surgical History left knee suregry Surgical History left breast biopsy
--- OUTSIDE RECORDS SUMMARY | 2019-10-01 16:55 | XMS REPORT | Continuity of Care Document ---
Demographics Preferred Language Unknown Marital Status Unknown Jewish Affiliation Unknown Race Unknown Ethnic Group Unknown Author Organization Unknown Address Unknown Phone Unavailable Allergies Active Description Code Type Severity Reaction Onset Reported/Identified Relationship to Patient Clinical Status Yes naproxen Drug Allergy N/A N/A 07/18/2008 Yes Penicillins Drug Allergy N/A N/A 07/18/2008 Yes naproxen Drug Allergy 07/18/2008 Yes Penicillins Drug Allergy 07/18/2008 Yes sulfa drug Drug Allergy 07/18/2008 Yes pravastatin 40 mg Drug Allergy N/A N/A 02/07/2012 Yes pravastatin 40 mg Drug Allergy 02/07/2012 Medications There is no data. Problems Date Dx Coded Attending Type Code Diagnosis Diagnosed By 02/09/2008 VOLODYMYR CARRION DO 272.0 HYPERCHOLESTEROLEMIA PURE 02/09/2008 VOLODYMYR CARRION DO 401.1 HYPERTENSION, BENIGN ESSENTIAL 02/09/2008 VOLODYMYR CARRION DO 716.90 ARTHRITIS/ ARTHROPATHY, UNSPECIFIED 02/09/2008 272.0 HYPERCHOLESTEROLEMIA PURE 02/09/2008 401.1 HYPE RTENSION, BENIGN ESSENTIAL 02/09/2008 716.90 ART HRITIS/ ARTHROPATHY, UNSPECIFIED 02/09/2008 272.0 HYPERCHOLESTEROLEMIA PURE 02/09/2008 401.1 HYPE RTENSION, BENIGN ESSENTIAL 02/09/2008 716.90 ART HRITIS/ ARTHROPATHY, UNSPECIFIED 02/09/2008 272.0 HYPERCHOLESTEROLEMIA PURE 02/09/2008 401.1 HYPE RTENSION, BENIGN ESSENTIAL 02/09/2008 716.90 ART HRITIS/ ARTHROPATHY, UNSPECIFIED 02/09/2008 LEVI SEARCH ENGINE OPTIMIZATION MANAGER, MARISELA S 272.0 HYPERCHOLESTEROLEMIA PURE 02/09/2008 LEVI SEARCH ENGINE OPTIMIZATION MANAGER, MARISELA S 401.1 HYPERTENSION, BENIGN ESSENTIAL 02/09/2008 LEVI SEARCH ENGINE OPTIMIZATION MANAGER, MARISELA S 716.90 ARTHRITIS/ ARTHROPATHY, UNSPECIFIED 02/09/2008 LEVI SEARCH ENGINE OPTIMIZATION MANAGER, MARISELA S 272.0 HYPERCHOLESTEROLEMIA PURE 02/09/2008 LEVI SEARCH ENGINE OPTIMIZATION MANAGER, MARISELA S 401.1 HYPERTENSION, BENIGN ESSENTIAL 02/09/2008 LEVI SEARCH ENGINE OPTIMIZATION MANAGER, MARISELA S 716.90 ARTHRITIS/ ARTHROPATHY, UNSPECIFIED 02/09/2008 AUBREE WHITEHEAD MD 272.0 HYPERCHOLESTEROLEMIA PURE 02/09/2008 AUBREE WHITEHEAD MD 401.1 HYPERTENSION, BENIGN ESSENTIAL 02/09/2008 AUBREE WHITEHEAD MD 716.9 0 ARTHRITIS/ ARTHROPATHY, UNSPECIFIED 02/28/2008 CARRION GEOVANY ARGUETAA K 272.4 HYPERLIPIDEMIA UNSPECIFIED 02/28/2008 MURALI ARGUETA VOLODYMYR K 530.81 GERD 02/28/2008 CARRION VOLODYMYR K 721.90 OSTEOARTHRITIS 02/28/2008 272.4 HYPE RLIPIDEMIA UNSPECIFIED 02/28/2008 530.81 GERD 02/28/2008 721.90 OST EOARTHRITIS 02/28/2008 272.4 HYPE RLIPIDEMIA UNSPECIFIED 02/28/2008 530.81 GERD 02/28/2008 721.90 OST EOARTHRITIS 02/28/2008 272.4 HYPE RLIPIDEMIA UNSPECIFIED 02/28/2008 530.81 GERD 02/28/2008 721.90 OST EOARTHRITIS 02/28/2008 ZEV SIMS APRNA S 272.4 HYPERLIPIDEMIA UNSPECIFIED 02/28/2008 NORMA SIMS APRNNDA S 530.81 GERD 02/28/2008 NORMA SIMS APRNNDA S 721.90 OSTEOARTHRITIS 02/28/2008 NORMA SIMS APRNNDA S 272.4 HYPERLIPIDEMIA UNSPECIFIED 02/28/2008 LEVI CHAPMAN MARISELA S 530.81 GERD 02/28/2008 NORMA SIMS APRNNDA S 721.90 OSTEOARTHRITIS 02/28/2008 AUBREE WHITEHEAD MD 272.4 HYPERLIPIDEMIA UNSPECIFIED 02/28/2008 AUBREE WHITEHEAD MD 530.8 1 GERD 02/28/2008 AUBREE WHITEHEAD MD 721.9 0 OSTEOARTHRITIS 05/19/2008 GEOVANY CARRION DOA K 728.87 MUSCLE WEAKNESS (GENERALIZED) 05/19/2008 728.87 MUS ROSE WEAKNESS (GENERALIZED) 05/19/2008 728.87 MUS ROSE WEAKNESS (GENERALIZED) 05/19/2008 728.87 MUS ROSE WEAKNESS (GENERALIZED) 05/19/2008 ZEV SIMS APRNA S 728.87 MUSCLE WEAKNESS (GENERALIZED) 05/19/2008 LEVI SEARCH ENGINE OPTIMIZATION MANAGER, MARISELA S 728.87 MUSCLE WEAKNESS (GENERALIZED) 05/19/2008 AUBREE WHITEHEAD MD 728.8 7 MUSCLE WEAKNESS (GENERALIZED) 07/18/2008 CARRION DO, VOLODYMYR K 300.4 DEPRESSION WITH ANXIETY 07/18/2008 CARRION DO, VOLODYMYR K 729.5 pain in the arms 07/18/2008 CARRION DO, VOLODYMYR K 789.03 abdominal pain in the right lower belly (RLQ) 07/18/2008 CARRION DO, VOLODYMYR K 789.04 abdominal pain in the left lower belly (LLQ) 07/18/2008 300.4 DEPR ESSION WITH ANXIETY 07/18/2008 729.5 pain in the arms 07/18/2008 789.03 abd ominal pain in the right lower belly (RLQ) 07/18/2008 789.04 abd ominal pain in the left lower belly (LLQ) 07/18/2008 300.4 DEPR ESSION WITH ANXIETY 07/18/2008 729.5 pain in the arms 07/18/2008 789.03 abd ominal pain in the right lower belly (RLQ) 07/18/2008 789.04 abd ominal pain in the left lower belly (LLQ) 07/18/2008 300.4 DEPR ESSION WITH ANXIETY 07/18/2008 729.5 pain in the arms 07/18/2008 789.03 abd ominal pain in the right lower belly (RLQ) 07/18/2008 789.04 abd ominal pain in the left lower belly (LLQ) 07/18/2008 LEVI SEARCH ENGINE OPTIMIZATION MANAGER, MARISELA S 300.4 DEPRESSION WITH ANXIETY 07/18/2008 LEVI SEARCH ENGINE OPTIMIZATION MANAGER, MARISELA S 729.5 pain in the arms 07/18/2008 LEVI SEARCH ENGINE OPTIMIZATION MANAGER, MARISELA S 789.03 abdominal pain in the right lower belly (RLQ) 07/18/2008 LEVI SEARCH ENGINE OPTIMIZATION MANAGER, MARISELA S 789.04 abdominal pain in the left lower belly (LLQ) 07/18/2008 LEVI SEARCH ENGINE OPTIMIZATION MANAGER, MARISELA S 300.4 DEPRESSION WITH ANXIETY 07/18/2008 LEVI SEARCH ENGINE OPTIMIZATION MANAGER, MARISELA S 729.5 pain in the arms 07/18/2008 LEVI SEARCH ENGINE OPTIMIZATION MANAGER, MARISELA S 789.03 abdominal pain in the right lower belly (RLQ) 07/18/2008 MARISELA SIMS APRN S 789.04 abdominal pain in the left lower belly (LLQ) 07/18/2008 AUBREE WHITEHEAD MD 300.4 DEPRESSION WITH ANXIETY 07/18/2008 AUBREE WHITEHEAD MD 729.5 pain in the arms 07/18/2008 AUBREE WHITEHEAD MD 789.0 3 abdominal pain in the right lower belly (RLQ) 07/18/2008 AUBREE WHITEHEAD MD 789.0 4 abdominal pain in the left lower belly (LLQ) 09/08/2008 CARRION DO, VOLODYMYR K 592.0 CALCULUS OF KIDNEY 09/08/2008 592.0 CALC ULUS OF KIDNEY 09/08/2008 592.0 CALC ULUS OF KIDNEY 09/08/2008 592.0 CALC ULUS OF KIDNEY 09/08/2008 ZEV SIMS APRNA S 592.0 CALCULUS OF KIDNEY 09/08/2008 ZEV SIMS APRNA S 592.0 CALCULUS OF KIDNEY 09/08/2008 AUBREE WHITEHEAD MD 592.0 CALCULUS OF KIDNEY 12/15/2008 CARRION DO, VOLODYMYR K 729.82 CRAMP OF LIMB 12/15/2008 729.82 PATTERNMAKER ALL AROUND MP OF LIMB 12/15/2008 729.82 PATTERNMAKER ALL AROUND MP OF LIMB 12/15/2008 729.82 PATTERNMAKER ALL AROUND MP OF LIMB 12/15/2008 MARISELA SIMS APRN S 729.82 CRAMP OF LIMB 12/15/2008 MARISELA SIMS APRN S 729.82 CRAMP OF LIMB 12/15/2008 AUBREE WHITEHEAD MD 729.8 2 CRAMP OF LIMB 04/06/2009 CARRION DO, VOLODYMYR K 462 PHARYNGITIS ACUTE 04/06/2009 462 PHARYN GITIS ACUTE 04/06/2009 462 PHARYN GITIS ACUTE 04/06/2009 462 PHARYN GITIS ACUTE 04/06/2009 MARISELA SIMS APRN S 462 PHARYNGITIS ACUTE 04/06/2009 ZEV SIMS APRNA S 462 PHARYNGITIS ACUTE 04/06/2009 AUBREE WHITEHEAD MD 462 PHARYNGITIS ACUTE 05/15/2009 VOLODYMYR CARRION DO 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, SITE UNSPECIFIED 05/15/2009 VOLODYMYR CARRION DO 724.3 SCIATICA 05/15/2009 722.6 DEGE NERATION OF INTERVERTEBRAL DISC, SITE UNSPECIFIED 05/15/2009 724.3 SCIATICA 05/15/2009 722.6 DEGE NERATION OF INTERVERTEBRAL DISC, SITE UNSPECIFIED 05/15/2009 724.3 SCIATICA 05/15/2009 722.6 DEGE NERATION OF INTERVERTEBRAL DISC, SITE UNSPECIFIED 05/15/2009 724.3 SCIATICA 05/15/2009 LEVI CHAPMAN MARISELA S 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, SITE UNSPECIFIED 05/15/2009 LEVI CHAPMAN MARISELA S 724.3 SCIATICA 05/15/2009 LEVI CHAPMAN MARISELA S 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, SITE UNSPECIFIED 05/15/2009 ZEV SIMS APRNA S 724.3 SCIATICA 05/15/2009 AUBREE WHITEHEAD MD 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, SITE UNSPECIFIED 05/15/2009 AUBREE WHITEHEAD MD 724.3 SCIATICA 07/03/2009 VOLODYMYR CARRION DO 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 07/03/2009 722.52 DEG ENERATION OF LUMBAR OR LUMBOSACRAL INTERVERTEBRAL DISC 07/03/2009 722.52 DEG ENERATION OF LUMBAR OR LUMBOSACRAL INTERVERTEBRAL DISC 07/03/2009 722.52 DEG ENERATION OF LUMBAR OR LUMBOSACRAL INTERVERTEBRAL DISC 07/03/2009 MARISELA SIMS APRN S 722.52 DEGENERATION OF LUMBAR OR LUMBOSACRAL INTERVERTEBRAL D ISC 07/03/2009 MARISELA SIMS APRN S 722.52 DEGENERATION OF LUMBAR OR LUMBOSACRAL INTERVERTEBRAL D ISC 07/03/2009 AUBREE WHITEHEAD MD 722.5 2 DEGENERATION OF LUMBAR OR LUMBOSACRAL INTERVERTEBRAL DISC 10/01/2009 VOLODYMYR CARRION DO V58.69 LONG-TERM (CURRENT) USE OF OTHER MEDICATIONS 10/01/2009 V58.69 FAN G-TERM (CURRENT) USE OF OTHER MEDICATIONS 10/01/2009 V58.69 FAN G-TERM (CURRENT) USE OF OTHER MEDICATIONS 10/01/2009 V58.69 FAN G-TERM (CURRENT) USE OF OTHER MEDICATIONS 10/01/2009 NORMA SIMS APRNNDA S V58.69 LONG-TERM (CURRENT) USE OF OTHER MEDICATIONS 10/01/2009 NORMA SIMS APRNNDA S V58.69 LONG-TERM (CURRENT) USE OF OTHER MEDICATIONS 10/01/2009 AUBREE WHITEHEAD MD V58.6 9 LONG-TERM (CURRENT) USE OF OTHER MEDICATIONS 04/29/2010 VOLODYMYR CARRION DO 780.79 OTHER MALAISE AND FATIGUE 04/29/2010 VOLODYMYR ACRRION DO 784.0 HEADACHE 04/29/2010 780.79 OTH ER MALAISE AND FATIGUE 04/29/2010 784.0 HEADACHE 04/29/2010 780.79 OTH ER MALAISE AND FATIGUE 04/29/2010 784.0 HEADACHE 04/29/2010 780.79 OTH ER MALAISE AND FATIGUE 04/29/2010 784.0 HEADACHE 04/29/2010 LEVI CHAPMAN MARISELA S 780.79 OTHER MALAISE AND FATIGUE 04/29/2010 LEVI CHAPMAN MARISELA S 784.0 HEADACHE 04/29/2010 LEVI CHAPMAN MARISELA S 780.79 OTHER MALAISE AND FATIGUE 04/29/2010 LEVI CHAPMAN MARISELA S 784.0 HEADACHE 04/29/2010 AUBREE WHITEHEAD MD 780.7 9 OTHER MALAISE AND FATIGUE 04/29/2010 AUBREE WHITEHEAD MD 784.0 HEADACHE 02/02/2012 VOLODYMYR CARRION DO 788.1 DYSURIA 02/02/2012 788.1 DYSURIA 02/02/2012 788.1 DYSURIA 02/02/2012 788.1 DYSURIA 02/02/2012 MARISELA SIMS APRN S 788.1 DYSURIA 02/02/2012 NORMA SIMS APRNNDA S 788.1 DYSURIA 02/02/2012 AUBREE WHITEHEAD MD 788.1 DYSURIA 02/07/2012 VOLODYMYR CARRION DO 381.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 OF EUSTACHIAN TUBE 02/07/2012 VOLODYMYR CARRION DO 386.10 VERTIGO, PERIPHERAL UNSPECIFIED 02/07/2012 VOLODYMYR CARRION DO 599.0 URINARY TRACT INFECTION SITE NOT SPECIFIED 02/07/2012 381.81 DYS FUNCTION OF EUSTACHIAN TUBE 02/07/2012 386.10 ODALYS TIGO, PERIPHERAL UNSPECIFIED 02/07/2012 599.0 URIN YOLANDA TRACT INFECTION SITE NOT SPECIFIED 02/07/2012 381.81 DYS FUNCTION OF EUSTACHIAN TUBE 02/07/2012 386.10 ODALYS TIGO, PERIPHERAL UNSPECIFIED 02/07/2012 599.0 URIN YOLANDA TRACT INFECTION SITE NOT SPECIFIED 02/07/2012 381.81 DYS FUNCTION OF EUSTACHIAN TUBE 02/07/2012 386.10 ODALYS TIGO, PERIPHERAL UNSPECIFIED 02/07/2012 599.0 URIN YOLANDA TRACT INFECTION SITE NOT SPECIFIED 02/07/2012 LEVI SEARCH ENGINE OPTIMIZATION MANAGER MARISELA S 381.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 OF EUSTACHIAN TUBE 02/07/2012 LEVI SEARCH ENGINE OPTIMIZATION MANAGER, MARISELA S 386.10 VERTIGO, PERIPHERAL UNSPECIFIED 02/07/2012 LEVI SEARCH ENGINE OPTIMIZATION MANAGER MARISELA S 599.0 URINARY TRACT INFECTION SITE NOT SPECIFIED 02/07/2012 LEVI SEARCH ENGINE OPTIMIZATION MANAGER, MARISELA S 381.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 OF EUSTACHIAN TUBE 02/07/2012 LEVI SEARCH ENGINE OPTIMIZATION MANAGER, MARISELA S 386.10 VERTIGO, PERIPHERAL UNSPECIFIED 02/07/2012 LEVI SEARCH ENGINE OPTIMIZATION MANAGER, MARISELA S 599.0 URINARY TRACT INFECTION SITE NOT SPECIFIED 02/07/2012 AUBREE WHITEHEAD MD 381.8 1 DYSFUNCTION OF EUSTACHIAN TUBE 02/07/2012 AUBREE WHITEHEAD MD 386.1 0 VERTIGO, PERIPHERAL UNSPECIFIED 02/07/2012 AUBREE WHITEHEAD MD 599.0 URINARY TRACT INFECTION SITE NOT SPECIFIED 02/23/2012 VOLODYMYR CARRION DO 625.9 UNSPECIFIED SYMPTOM ASSOCIATED WITH FEMALE GENITAL ORGANS 02/23/2012 VOLODYMYR CARRION DO V76.19 OTHER SCREENING BREAST EXAMINATION 02/23/2012 VOLODYMYR CARRION DO V76.2 CERVICAL CANCER SCREENING (PAP SMEAR) 02/23/2012 625.9 UNSP ECIFIED SYMPTOM ASSOCIATED WITH FEMALE GENITAL ORGANS 02/23/2012 V76.19 OTH ER SCREENING BREAST EXAMINATION 02/23/2012 V76.2 CERV ICAL CANCER SCREENING (PAP SMEAR) 02/23/2012 625.9 UNSP ECIFIED SYMPTOM ASSOCIATED WITH FEMALE GENITAL ORGANS 02/23/2012 V76.19 OTH ER SCREENING BREAST EXAMINATION 02/23/2012 V76.2 CERV ICAL CANCER SCREENING (PAP SMEAR) 02/23/2012 625.9 UNSP ECIFIED SYMPTOM ASSOCIATED WITH FEMALE GENITAL ORGANS 02/23/2012 V76.19 OTH ER SCREENING BREAST EXAMINATION 02/23/2012 V76.2 CERV ICAL CANCER SCREENING (PAP SMEAR) 02/23/2012 MARISELA SIMS APRN 625.9 UNSPECIFIED SYMPTOM ASSOCIATED WITH FEMALE GENITAL ORG ANS 02/23/2012 MARISELA SIMS APRN S V76.19 OTHER SCREENING BREAST EXAMINATION 02/23/2012 MARISELA SIMS APRN S V76.2 CERVICAL CANCER SCREENING (PAP SMEAR) 02/23/2012 MARISELA SIMS APRN 625.9 UNSPECIFIED SYMPTOM ASSOCIATED WITH FEMALE GENITAL ORG ANS 02/23/2012 MARISELA SIMS APRN S V76.19 OTHER SCREENING BREAST EXAMINATION 02/23/2012 MARISELA SIMS APRN S V76.2 CERVICAL CANCER SCREENING (PAP SMEAR) 02/23/2012 AUBREE WHITEHEAD MD 625.9 UNSPECIFIED SYMPTOM ASSOCIATED WITH FEMALE GENITAL ORGANS 02/23/2012 AUBREE WHITEHEAD MD V76.1 9 OTHER SCREENING BREAST EXAMINATION 02/23/2012 AUBREE WHITEHEAD MD V76.2 CERVICAL CANCER SCREENING (PAP SMEAR) 03/23/2012 VOLODYMYR CARRION DO 782.1 RASH 03/23/2012 782.1 RASH 03/23/2012 782.1 RASH 03/23/2012 782.1 RASH 03/23/2012 MARISELA SIMS APRN 782.1 RASH 03/23/2012 MARISELA SIMS APRN S 782.1 RASH 03/23/2012 AUBREE WHITEHEAD MD 782.1 RASH 08/17/2012 728.85 SPA SM OF MUSCLE 08/17/2012 728.85 SPA SM OF MUSCLE 08/17/2012 728.85 SPA SM OF MUSCLE 08/17/2012 MARISELA SIMS APRN 728.85 SPASM OF MUSCLE 08/17/2012 LEVI SEARCH ENGINE OPTIMIZATION MANAGER, MARISELA S 728.85 SPASM OF MUSCLE 08/17/2012 AUBREE WHITEHEAD MD 728.8 5 SPASM OF MUSCLE 11/09/2012 709.9 SKIN LESIONS 11/09/2012 724.2 LUMB AGO/ LOW BACK PAIN 11/09/2012 709.9 SKIN LESIONS 11/09/2012 724.2 LUMB AGO/ LOW BACK PAIN 11/09/2012 LEVI CHAPMAN, MARISELA S 709.9 SKIN LESIONS 11/09/2012 LEVI CHAPMAN, MARISELA S 724.2 LUMBAGO/ LOW BACK PAIN 11/09/2012 LEVI CHAPMAN, MARISELA S 709.9 SKIN LESIONS 11/09/2012 LEVI CHAPMAN, MARISELA S 724.2 LUMBAGO/ LOW BACK PAIN 11/09/2012 AUBREE WHITEHEAD MD 709.9 SKIN LESIONS 11/09/2012 AUBREE WHITEHEAD MD 724.2 LUMBAGO/ LOW BACK PAIN 12/25/2012 LEVI CHAPMAN, MARISELA S 847.0 SPRAIN/STRAIN NECK 12/25/2012 LEVI CHAPMAN, MARISELA S 847.0 SPRAIN/STRAIN NECK 12/25/2012 AUBREE WHITEHEAD MD 847.0 SPRAIN/STRAIN NECK 06/05/2013 LEVI CHAPMAN MARISELA S 780.60 FEVER, UNSPECIFIED 06/05/2013 LEVI CHAPMAN MARISELA S 787.01 NAUSEA WITH VOMITING 06/05/2013 NORMA SIMS APRNNDA S 780.60 FEVER, UNSPECIFIED 06/05/2013 LEVI CHAPMAN MARISELA S 787.01 NAUSEA WITH VOMITING 06/05/2013 AUBREE WHITEHEAD MD 780.6 0 FEVER, UNSPECIFIED 06/05/2013 AUBREE WHITEHEAD MD 787.0 1 NAUSEA WITH VOMITING 06/20/2013 NORMA SIMS APRNNDA S 009.0 INFECTIOUS COLITIS ENTERITIS AND GASTROENTERITIS 06/20/2013 AUBREE WHITEHEAD MD 009.0 INFECTIOUS COLITIS ENTERITIS AND GASTROENTERITIS 07/04/2013 MARISELA SIMS APRN S 564.00 CONSTIPATION 07/04/2013 AUBREE WHITEHEAD MD 564.0 0 CONSTIPATION 12/05/2013 AUBREE WHITEHEAD MD 782.3 EDEMA Procedures Code Description [place] [address] UA L ERIS DIP 02/02/2012 21035 CULT URE UROGENITAL 02/26/2012 21027 PAP SMEAR 02/29/2012 [id number] GY NECOLOGIC ADDENDUM REPORT (RESULT ONLY) 03/01/2012 82297 US P ELVIC COMPL (REFLEX CPT- 19057) 03/23/2012 Q0091 PAP SMEAR OBTAIN SMEAR 03/23/2012 05506 UA W / CULTURE IF INDICATED 11/09/2012 19395 ROUT INE VENIPUNCTURE 11/16/2012 52622 CBC 11/16/2012 92075 CMP 11/16/2012 [id number] GF R CALC (RESULT ONLY) 11/16/2012 03587 XRAY LUMBAR SPINE 2 OR 3 VIEWS 11/16/2012 77293 TSH 11/16/2012 93249 H PY NURIA (IN-HOUSE) 06/05/2013 74037 INFL UENZA A & B (IN-HOUSE) 06/05/2013 05247 UA L ERIS DIP 06/05/2013 81327 UA W / CULTURE IF INDICATED 12/05/2013 Results Test Result Range CBC With Differential/Platelet - 7 17:54 WBC 8.6 x10E3/uL 3.4-10.8 RBC 4.92 x10E6/uL 3.77-5.28 Hemoglobin 13.5 g/dL 11.1-15.9 Hematocrit 40.2 % 34.0-46.6 MCV 82 fL 79-97 MCH 27.4 pg 26.6-33.0 MCHC 33.6 g/dL 31.5-35.7 RDW 13.7 % 12.3-15.4 Platelets 188 x10E3/uL 150-379 Neutrophils 60 % Lymphs 29 % Monocytes 6 % Eos 4 % Basos 1 % Neutrophils (Absolute) 5.1 x10E3/uL 1.4- 7.0 Lymphs (Absolute) 2.5 x10E3/uL 0.7-3.1 Monocytes(Absolute) 0.6 x10E3/uL 0.1-0.9 Eos (Absolute) 0.4 x10E3/uL 0.0-0.4 Baso (Absolute) 0.0 x10E3/uL 0.0-0.2 Immature Granulocytes 0 % Immature Grans (Abs) 0.0 x10E3/uL 0.0-0. 1 Comp. Metabolic Panel (14) - 02/13/17 17 :54 Glucose, Serum 174 mg/dL 65-99 BUN 16 mg/dL 6-24 Creatinine, Serum 0.50 mg/dL 0.57-1.00 eGFR If NonAfricn Am 107 mL/min/1.73 >59 eGFR If Africn Am 123 mL/min/1.73 >5 9 BUN/Creatinine Ratio 32 9-23 Sodium, Serum 139 mmol/L 134-144 Potassium, Serum 3.7 mmol/L 3.5-5.2 Chloride, Serum 100 mmol/L 96-106 Carbon Dioxide, Total 20 mmol/L 18-29 Calcium, Serum 9.3 mg/dL 8.7-10.2 Protein, Total, Serum 6.8 g/dL 6.0-8.5 Albumin, Serum 4.5 g/dL 3.5-5.5 Globulin, Total 2.3 g/dL 1.5-4.5 A/G Ratio 2.0 1.2-2.2 Bilirubin, Total <0.2 mg/dL 0.0-1.2 Alkaline Phosphatase, S 129 IU/L 39-117 AST (SGOT) 20 IU/L 0-40 ALT (SGPT) 26 IU/L 0-32 TSH - 02/13/17 17:54 TSH 1.460 uIU/mL 0.450-4.500 Rheumatoid Arthritis Factor - 02/13/17 1 7:54 RA Latex Turbid. <10.0 IU/mL 0.0-13.9 Antistreptolysin O Ab - 02/13/17 17:54 Antistreptolysin O Ab 86.5 IU/mL 0.0-200 .0 C-Reactive Protein, Quant - 02/13/17 17: 54 C-Reactive Protein, Quant 7.4 mg/L 0.0- 4.9 Antinuclear Antibodies, IFA - 02/13/17 1 7:54 Antinuclear Antibodies, IFA Negative CBC - 02/13/17 17:54 WBC 8.6 x10E3/uL 3.4-10.8 RBC 4.92 x10E6/uL 3.77-5.28 Hemoglobin 13.5 g/dL 11.1-15.9 Hematocrit 40.2 % 34.0-46.6 MCV 82 fL 79-97 MCH 27.4 pg 26.6-33.0 MCHC 33.6 g/dL 31.5-35.7 RDW 13.7 % 12.3-15.4 Platelets 188 x10E3/uL 150-379 Neutrophils 60 % NRG Lymphs 29 % NRG Monocytes 6 % NRG Eos 4 % NRG Basos 1 % NRG Neutrophils (Absolute) 5.1 x10E3/uL 1.4- 7.0 Lymphs (Absolute) 2.5 x10E3/uL 0.7-3.1 Monocytes(Absolute) 0.6 x10E3/uL 0.1-0.9 Eos (Absolute) 0.4 x10E3/uL 0.0-0.4 Baso (Absolute) 0.0 x10E3/uL 0.0-0.2 Immature Granulocytes 0 % NRG Immature Grans (Abs) 0.0 x10E3/uL 0.0-0. 1 CMP - 05/17/17 17:35 GLUCOSE 113 mg/dL 65-99 UREA NITROGEN (BUN) 9 mg/dL 7-25 CREATININE 0.57 mg/dL 0.50-1.05 eGFR NON-AFR. SAO TOMEAN 101 mL/min/1.73m2 > OR = 60 eGFR 118 mL/min/1.73m2 > OR = 60 BUN/CREATININE RATIO NOT APPLICABLE (calc) 6-22 SODIUM 140 mmol/L 135-146 POTASSIUM 4.1 mmol/L 3.5-5.3 CHLORIDE 104 mmol/L 98-110 CARBON DIOXIDE 28 mmol/L 20-31 CALCIUM 9.6 mg/dL 8.6-10.4 PROTEIN, TOTAL 6.7 g/dL 6.1-8.1 ALBUMIN 4.3 g/dL 3.6-5.1 GLOBULIN 2.4 g/dL (calc) 1.9-3.7 ALBUMIN/GLOBULIN RATIO 1.8 (calc) 1.0-2. 5 BILIRUBIN, TOTAL 0.4 mg/dL 0.2-1.2 ALKALINE PHOSPHATASE 152 U/L 33-130 AST 32 U/L 10-35 ALT 35 U/L 6-29 GGT - 06/19/17 17:14 GGT 32 U/L 3-70 GGT - 07/25/17 17:23 GGT 63 U/L 3-70 LIPID PANEL - 12/12/18 15:27 CHOLESTEROL, TOTAL 220 mg/dL <200 HDL CHOLESTEROL 33 mg/dL >50 TRIGLYCERIDES 653 mg/dL <150 LDL-CHOLESTEROL mg/dL (calc) NRG CHOL/HDLC RATIO 6.7 (calc) <5.0 NON HDL CHOLESTEROL 187 mg/dL (calc) <13 0 CULTURE, URINE - 01/20/19 17:22 CULTURE, URINE, ROUTINE SEE NOTE NRG Encounters ACCT No. Visit Date/Time Discharge Status Pt. Type Provider Facility Loc./Unit Complaint [id number] 02/14/2017 19:07:00 Document Registration [id number] 12/05/2013 18:11:00 12/05/2013 23:59: 59 CLS Outpatient AUBREE WHITEHEAD MD [id number] 07/04/2013 17:50:00 07/04/2013 23:59: 59 CLS Outpatient MARISELA SIMS APRN [id number] 06/05/2013 17:34:00 06/05/2013 23:59: 59 CLS Outpatient MARISELA SIMS APRN [id number] 08/17/2012 13:59:00 08/17/2012 23:59: 59 CLS Outpatient [id number] 03/23/2012 16:35:00 03/23/2012 23:59:5 9 CLS Outpatient VOLODYMYR CARRION DO [id number] 11/16/2012 10:38:00 Document Registration [id number] 11/09/2012 16:07:00 Document Registration [id number] 01/20/2019 13:00:00 01/20/2019 23:59:5 9 CLS Outpatient MARIALUISA LOCKETT APRN [facility] [id number] 01/20/2019 13:00:00 Document Registration [id number] 12/12/2018 15:00:00 Document Registration [id number] 07/25/2017 17:00:00 Document Registration [id number] 06/19/2017 16:40:00 Document Registration [id number] 05/17/2017 17:30:00 Document Registration [id number] 02/13/2017 17:20:00 Document Registration
--- OUTSIDE RECORDS SUMMARY | 2019-10-01 16:55 | XMS REPORT ---
Author Author Carmencita GAMBINO Organization [facility] Address [address] [place] [address] Care Team Providers Care Lead Software Qa Engineer Name Role Phone MAKI RANDY Unavailable PROBLEMS Type Condition ICD9-CM Code [id number] Code Onset Dates Condition S tatus SNOMED Code Problem Urinary tract infection, site not specified 599.0 Active 85445889 Problem Unspecified peripheral vertigo 386.10 Active 15104724 Problem Unspecified constipation 564.00 Activ e 34089952 Problem Arthritis M19.90 Active 4674334 Problem Other screening breast examination V76.19 Active 23879429 Problem Seasonal allergic rhinitis, unspecified allergic rhinitis trigger J30.2 Active 796299325 Problem Screening for malignant neoplasm of the cervix V76.2 Active 944280712 Problem Infectious colitis, enteritis, and gastroenteritis 009.0 Active 417002931 Problem Dysfunction of Eustachian tube 381.81 Active 37488581 Problem Slow transit constipation K59.01 Acti ve 75294452 Problem Gastroesophageal reflux disease without esophagitis K21.9 Active 122227941 Problem Nausea with vomiting 787.01 Active 78097438 Problem Edema 782.3 Active 45363015 Problem Neck sprain and strain 847.0 Active 454019261 Problem Dysuria 788.1 Active 94312424 Problem Spasm of muscle 728.85 Active 4535 2006 Problem Unspecified disorder of skin and subcutaneous tissue 709.9 Active 33593327 Problem Rash and other nonspecific skin eruption 782.1 Active 522836658 Problem Lumbago 724.2 Active 112647569 Problem Fever, unspecified 780.60 Active 3 63595087 Problem Unspecified symptom associated with female genital organs 625.9 Active 729685724 ALLERGIES Substance Reaction Event Type Date Status Tramadol HCl rash/ itching Drug Allergy Jun, Active SulfADIAZINE hives Drug Allergy Jun, Active Penicillin V Potassium hives Drug Allergy Jun, Activ e Pravastatin 40 Mg muscle pain..bb Non Drug Allergy Jun, Act josé miguel SOCIAL HISTORY Never Assessed PLAN OF CARE Activity Details Follow Up prn Reason: VITAL SIGNS Height 63 in 2016-07-15 Weight 153 lbs 2016-07-15 Temperature 98.8 degrees Fahrenheit 2016-07-15 Heart Rate 80 bpm 2016-07-15 Respiratory Rate 20 2016-07-15 BMI 27.10 kg/m2 2016-07-15 Blood pressure systolic 130 mmHg 2016-07-15 Blood pressure diastolic 72 mmHg 2016-07-15 MEDICATIONS Medication Instructions Dosage Frequency Start Date End Date Duration S tatus Fluticasone Propionate 50 MCG/ACT Nasally Twice a day 1 spray in each nostril 12h Jun, 30 day(s) Active Zyrtec Allergy 10 MG Orally Once a day 1 tablet 24h Jun, 7 Jul, 30 day(s) Active Pantoprazole Sodium 40 mg Orally Once a day 1 tablet 24h Apr 30 day(s) Active Aleve 220 MG Orally every 12 hrs 1 tablet as needed 12h Active PredniSONE 20 MG Orally Once a day 2 tablet 24h Jun, Jun, 5 days Active Azithromycin 250 MG Orally Once a day 2 tablets on the fi rst day, then 1 tablet daily for 4 days 24h Jun, Jun, 5 days Active Colace 100 MG Orally Once a day 1 capsule as needed 24h AprJul, 30 day(s) Active RESULTS No Results PROCEDURES No Known procedures IMMUNIZATIONS No Known Immunizations MEDICAL (GENERAL) HISTORY Type Description Date Medical History arthritis diagnosed 10 years ago in [place] Medical History hespes virus Surgical History hysterectomy Surgical History cholecystectomy Surgical History left knee suregry Surgical History left breast biopsy
== END 2019-10-01 16:55 | disposition home or self-care (01) ==
LOC: EDUNIT# 13:38 → ER 13:40
DX: R51 Headache (principal); F43.21 Adjustment disorder with depressed mood; K21.9 Gastro-esophageal reflux disease without esophagitis; F17.210 Nicotine dependence, cigarettes, uncomplicated; Z88.0 Allergy status to penicillin; Z88.2 Allergy status to sulfonamides; Z88.5 Allergy status to narcotic agent
CPT/HCPCS: 36415; 70450; 80053; 85025; 85652

== ENCOUNTER 2021-12-22 10:10 | Observation (INO) | payer OTHER ==
[~2021-12-22] VITALS: Ht 167.6 cm; Wt 63.8 kg
[~2021-12-22 10:10] MED LIST changes: +LORA-404 PO
--- NOTE | 2021-12-22 11:44 | ED Headache ---
General Chief Complaint: Head/Cervical Problems Stated Complaint: [facility] Nursing Triage Note: PT AMB TO RM 10 WITH . PT AND DO NOT SPEECH URDU AND INTERPERTER WAS USED. PT STATED THAT SHE HAS RIGHT SIDE HEADACHE FOLLOWING CAT SCAN THAT WAS DONE AT [facility]. HEADACHE STARTED AT 0940. PT WAS INSTRUCTED BY [facility] THAT THE HEADACHE WAS NOT DUE TO MEDICATION THAT WAS GIVEN AT [facility]. Source: patient Exam Limitations: no limitations, language barrier History of Present Illness Date Seen by Provider: Dec 22, 2021 Time Seen by Provider: 11:41 Initial Comments Patient is a 61-year-old female with a history of hypertension, dyslipidemia, diabetes who presents to the ED with right-sided head pain with numbness. Symptoms started around 930. Was getting a CT scan of her abdomen pelvis at [facility] for diarrhea for the past month, lower abdominal discomfort and 9 pound weight loss over the past 3 months. She states she started having pain to the right side of her head rated 10 out of 10. Started having heaviness of her tongue, upper face and right side. Patient was having difficulty moving her face or talking. She had no weakness or numbness in her upper or lower extremities. On arrival she states symptoms are improving. Rates pain 4 out of 10. No history of migraines or states this feels very similar. No history of stroke with a family history. Denies of any current chest pain, shortness of breath, nausea, vomiting, diarrhea, confusion, loss of consciousness, syncopal episode. She is denies blood thinner use. No known history of previous stroke, coronary artery disease, CHF, COPD, sleep slurred speech, facial droop. Denies history of similar symptoms. Limited exam secondary to language barrier Allergies and Home Medications Allergies Coded Allergies: Penicillins (Unverified Allergy, Mild, 09/02/08) Sulfa (Sulfonamide Antibiotics) (Unverified Allergy, Mild, RASH, , 09/02/08) hydrocodone (Verified Allergy, Unknown, itching, 03/20/17) Patient Home Medication List Home Medication List Reviewed: Yes Lorazepam (Ativan) 0.5 Mg Tablet, 0.5 MG PO BID PRN for ANXIETY Prescribed by: DENI CHINCHILLA on 10/01/19 1633 Naproxen (Naproxen) 500 Mg Tablet., 500 MG PO DAILY, (Reported) Entered as Reported by: VIVIANA OJEDA on 03/20/171216 Omeprazole (Omeprazole) 20 Mg Capsule., 20 MG PO DAILY, (Reported) Entered as Reported by: VIVIANA OJEDA on 03/20/171216 Review of Systems Review of Systems Constitutional: No chills, No diaphoresis, No malaise, No weakness Eyes: Denies Blurred Vision, Denies Drainage, Denies Decreased Acuity Cardiovascular: No chest pain, No edema Gastrointestinal: No RUQ, No abdominal pain; diarrhea; No nausea, No vomiting Musculoskeletal: No back pain, No joint pain, No joint swelling, No muscle pain Skin: No change in color, No change in hair/nails Psychiatric/Neurological: Headache, Numbness All Other Systems Reviewed Negative Unless Noted: Yes Past Bhhyjvy-Rvpptp-Tccwmj Hx Patient Social History Tobacco Use?: Yes Tobacco type used: Cigarettes Substance use?: No Alcohol Use?: No Pt feels they are or have been: Unable to obtain Immunizations Up To Date Tetanus Booster (TDap): Unknown Influenza Vaccine Up-to-Date: Yes; Up-to-Date Seasonal Allergies Seasonal Allergies: Yes Past Medical History Surgeries: Yes (LT KNEE, LIPOMA ON BACK, BREAST BX) Gallbladder, Hysterectomy Respiratory: No Cardiac: No Neurological: No Reproductive Disorders: No 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 Sexually Transmitted Disease: No HIV/AIDS: No Gastrointestinal: Yes (GASTRITIS) Gastroesophageal Reflux Musculoskeletal: Yes (CHRONIC NECK PAIN WITH RADICULAR SYMPTOMS) Osteoporosis, Arthritis Endocrine: No Loss of Vision: Denies Hearing Impairment: Denies Cancer: No Psychosocial: No Integumentary: Yes (POSTERIOR NECK MASS) Blood Disorders: No Adverse Reaction/Blood Tranf: No Physical Exam Vital Signs Vital Signs - First Documented 12/22/21 11:02 Temp 36.0 Pulse 69 Resp 13 B/P (MAP) 142/70 (94) Pulse Ox 99 O2 Delivery Room Air Capillary Refill : Less Than 3 Seconds Height, Weight, BMI Height: 5'3.50" Weight: 149lbs. 0.0oz. [id number]; 20.00 BMI Method:Actual General Appearance: WD/WN, no apparent distress HEENT: PERRL/EOMI, normal ENT inspection, TMs normal, pharynx normal Neck: non-tender, full range of motion, supple, normal inspection Cardiovascular: regular rate, rhythm, no edema, no gallop, no JVD Respiratory: chest non-tender, lungs clear, normal breath sounds, no respiratory distress, no accessory muscle use Gastrointestinal: normal bowel sounds, non tender, soft, no organomegaly Back: normal inspection, no CVA tenderness, no vertebral tenderness Extremities: normal range of motion, non-tender, normal inspection, no pedal edema Psychiatric: alert, oriented x 3 Crainal Nerves: normal hearing, normal speech, PERRL Coordination/Gait: normal finger to nose, normal gait Motor/Sensory: no motor deficit, no sensory deficit, no pronator drift Skin: normal color, warm/dry Progress/Results/Core Measures Results/Orders Lab Results Laboratory Tests Test 12/22/21 11:50 Range/Units White Blood Count 10.0 4.3-11.0 10^3/uL Red Blood Count 4.99 3.80-5.11 10^6/uL Hemoglobin 14.1 11.5-16.0 g/dL Hematocrit 42 35-52 % Mean Corpuscular Volume 85 80-99 fL Mean Corpuscular Hemoglobin 28 25-34 pg Mean Corpuscular Hemoglobin Concent 33 32-36 g/dL Red Cell Distribution Width 12.9 10.0-14.5 % Platelet Count 185 130-400 10^3/uL Mean Platelet Volume 12.3 H 9.0-12.2 fL Immature Granulocyte % (Auto) 0 % Neutrophils (%) (Auto) 75 42-75 % Lymphocytes (%) (Auto) 18 12-44 % Monocytes (%) (Auto) 4 0-12 % Eosinophils (%) (Auto) 2 0-10 % Basophils (%) (Auto) 1 0-10 % Neutrophils # (Auto) 7.5 1.8-7.8 10^3/uL Lymphocytes # (Auto) 1.8 1.0-4.0 10^3/uL Monocytes # (Auto) 0.4 0.0-1.0 10^3/uL Eosinophils # (Auto) 0.2 0.0-0.3 10^3/uL Basophils # (Auto) 0.1 0.0-0.1 10^3/uL Immature Granulocyte # (Auto) 0.0 0.0-0.1 10^3/uL Prothrombin Time 12.6 12.2-14.7 SEC INR Comment 0.9 0.8-1.4 Activated Partial Thromboplast Time 32 24-35 SEC Sodium Level 136 135-145 MMOL/L Potassium Level 4.2 3.6-5.0 MMOL/L Chloride Level 101 98-107 MMOL/L Carbon Dioxide Level 25 21-32 MMOL/L Anion Gap 10 5-14 MMOL/L Blood Urea Nitrogen 11 7-18 MG/DL Creatinine 0.80 0.60-1.30 MG/DL Estimat Glomerular Filtration Rate 83 BUN/Creatinine Ratio 14 Glucose Level 200 H 70-105 MG/DL Calcium Level 9.4 8.5-10.1 MG/DL Corrected Calcium 9.0 8.5-10.1 MG/DL Total Bilirubin 0.4 0.1-1.0 MG/DL Aspartate Amino Transf (AST/SGOT) 13 5-34 U/L Alanine Aminotransferase (ALT/SGPT) 14 0-55 U/L Alkaline Phosphatase 99 40-136 U/L Troponin I < 0.028 <0.028 NG/ML Total Protein 7.0 6.4-8.2 GM/DL Albumin 4.5 3.2-4.5 GM/DL My Orders Orders - VALORIE LONG PA Cbc With Automated Diff (12/22/21 11:39) Protime With Inr (12/22/21 11:39) Partial Thromboplastin Time (12/22/21 11:39) Comprehensive Metabolic Panel (12/22/21 11:39) Troponin I Alfonzo (12/22/21 11:39) Chest 1 View, Ap/Pa Only (12/22/21 11:39) Ekg Tracing (12/22/21 11:39) Ed Iv/Invasive Line Start (12/22/21 11:39) Vital Signs Stroke Patient Q15M (12/22/21 11:39) Ct Head Wo-R/O Stroke (12/22/21 11:39) Monitor-Rhythm Ecg Trace Only (12/22/21 11:39) Dysphagia Screening Tool [id number] (12/22/21 11:39) Lipid Panel (12/23/21 06:00) Ed Admission (Communication) (12/22/21 13:13) Vital Signs/I&O 12/22/21 11:02 Temp 36.0 Pulse 69 Resp 13 B/P (MAP) 142/70 (94) Pulse Ox 99 O2 Delivery Room Air Blood Pressure Mean: 94 Comment Sinus rhythm, 74 bpm, QRS duration 80 MS, QTC 418 MS Departure Communication (Admissions) Time/Spoke to Admitting Phy: 13:[address] Dacosta for TIA work-up Communication (PCP) Difficulty obtaining history from patient due to language barrier. History of dyslipidemia, hypertension, diabetes. No history of coronary artery disease, CHF or COPD. Patient with acute onset of right-sided head pain with numbness into her lips and tongue. This occurred after receiving a CT abdomen pelvis at [facility] and was sent here to ED for stroke rule out. On arrival she states symptoms appear to be improving. Her NIH was 0. She has no numbness and tingling sensation in her upper or lower extremities. No history of stroke. Initial CT scan of the head was unremarkable. Lab work was otherwise unremarkable and reassuring. Patient was discussed with Dr. Nolan neurologist at who recommended TIA work-up. Recommend CT angio head and neck and MRI with and without. Thought presentation appear to be more trigeminal neuralgia. Did not recommend tPA or transfer at this time. Patient symptoms continue to improve. Patient was discussed with Dr. Dacosta who accepts patient at this time for observation and TIA work-up. Reason for the CT abdomen pelvis was secondary to diarrhea for the past month, 9 lb weight loss and lower abdominal discomfort. She had the scan at [facility]. Impression Primary Impression: Right-sided headache Additional Impression: TIA (transient ischemic attack) Disposition: ADMITTED INPATIENT Condition: Stable Admissions Decision to Admit Reason: Admit from ER (General) Decision to Admit/Date: Dec 22, 2021 Time/Decision to Admit Time: 13:13 Departure-Patient Inst. Referrals: [facility] (PCP/Family) Primary Care Physician VALORIE LONG Dec 22, 2021 11:44
[2021-12-22 11:58] LABS: BASOPHILS # (AUTO) 0.1 10^3/uL (0.0-0.1); BASOPHILS % (AUTO) 1 % (0-10); EOSINOPHILS # (AUTO) 0.2 10^3/uL (0.0-0.3); EOSINOPHILS % (AUTO) 2 % (0-10); HEMATOCRIT 42 % (35-52); HEMOGLOBIN 14.1 g/dL (11.5-16.0); LYMPHOCYTES # (AUTO) 1.8 10^3/uL (1.0-4.0); LYMPHOCYTES % (AUTO) 18 % (12-44); MEAN CORPUSCULAR HEMOGLOBIN 28 pg (25-34); MEAN CORPUSCULAR HGB CONC 33 g/dL (32-36); MEAN CORPUSCULAR VOLUME 85 fL (80-99); MEAN PLATELET VOLUME 12.3 fL (9.0-12.2); MONOCYTES # (AUTO) 0.4 10^3/uL (0.0-1.0); MONOCYTES % (AUTO) 4 % (0-12); NEUTROPHILS # (AUTO) 7.5 10^3/uL (1.8-7.8); NEUTROPHILS % (AUTO) 75 % (42-75); PLATELET COUNT 185 10^3/uL (130-400)
[2021-12-22 12:05] LABS: ALBUMIN 4.5 GM/DL (3.2-4.5)
[2021-12-22 12:06] LABS: CHLORIDE 101 MMOL/L (98-107); POTASSIUM 4.2 MMOL/L (3.6-5.0); SODIUM 136 MMOL/L (135-145)
[2021-12-22 12:07] LABS: CALCIUM 9.4 MG/DL (8.5-10.1)
[2021-12-22 12:08] LABS: GLUCOSE 200 MG/DL (70-105)
[2021-12-22 12:09] LABS: CARBON DIOXIDE 25 MMOL/L (21-32); INR 0.9 (0.8-1.4); PROTHROMBIN TIME PATIENT 12.6 SEC (12.2-14.7)
[2021-12-22 12:10] LABS: BILIRUBIN,TOTAL 0.4 MG/DL (0.1-1.0)
--- NOTE | 2021-12-22 12:10 | Diagnostic Imaging Report ---
PROCEDURE: CT head wo r/o stroke. TECHNIQUE: Multiple contiguous axial images were obtained through the brain without the use of intravenous contrast. Auto Exposure Controls were utilized during the CT exam to meet ALARA standards for radiation dose reduction. INDICATION: Right-sided headache. COMPARISON: CT head without contrast 10/01/2019. FINDINGS: No intracranial hemorrhage, mass effect, hydrocephalus, or extra-axial fluid collections. No CT evidence of a territorial infarction. Osseous structures are intact. Visualized paranasal sinuses and mastoids are unremarkable. IMPRESSION: No acute intracranial CT findings. Dictated by: Dictated on workstation # [id number]
[2021-12-22 12:11] LABS: ALKALINE PHOSPHATASE 99 U/L (40-136)
[2021-12-22 12:12] LABS: GFR ESTIMATED 83
[2021-12-22 12:13] LABS: BUN/CREATININE RATIO 14
[2021-12-22 12:15] LABS: ALANINE AMINOTRANSFERASE 14 U/L (0-55)
--- NOTE | 2021-12-22 12:30 | Diagnostic Imaging Report ---
INDICATION: stroke. TECHNIQUE: Single view chest 12:07 PM. CORRELATION STUDY: None FINDINGS: Heart size upper limits normal. Vasculature overall within normal limits. Asymmetrically elevated right diaphragm. Lung trinh overall are clear. No infiltrate. IMPRESSION: 1. Borderline heart size without failure. Dictated by: Dictated on workstation # [id number]
[2021-12-22 14:00] VITALS: BP 139/62
--- NOTE | 2021-12-22 14:08 | History & Physical-Hospitalist ---
BRUCEAndreaJB LINDSEY 12/22/21 1408: History of Present Illness HPI/Chief Complaint Carmencita Lynne is a 61-year-old female with a past medical history of hypertension, dyslipidemia, and diabetes who presents to the ED with right- sided head pain with numbness. Symptoms started around 930 this morning about 5 minutes after she completed a CT scan of her abdomen pelvis at [facility]. The scan was for diarrhea for the past month, lower abdominal discomfort and 9 pound weight loss over the past 3 months. She states she started having pain to the right side of her head rated 10 out of 10. Started the started having heaviness of her tongue, upper face and right side. She describes the pain as her "bones crushing". She was having difficulty moving her face or talking. She had no weakness or numbness in her upper or lower extremities. On arrival she states symptoms were improving. She rates pain 4 out of 10. She has a history of migraines, the last one being two months ago, but states this does not feel similar. She has family history of stroke in her sister who of a brain aneurism two years ago. Denies of any current chest pain, shortness of breath, nausea, vomiting, diarrhea, confusion, loss of consciousness, syncopal episode. She denies blood thinner use. No known history of previous stroke, coronary artery disease, CHF, COPD, sleep slurred speech, or facial droop. She denies any history of similar symptoms. Her exam was limited secondary to language barrier. Source: patient, family Date Seen 12/22/21 Time Seen by a Provider: 14:00 Attending Physician [place] PCP Admitting Physician: Naomi Kinsey DO Attending Physician: Naomi Kinsey DO Referring Physician Date of Admission Dec 22, 2021 at 13:14 Home Medications & Allergies Home Medications Reviewed patient Home Medication Reconciliation performed by pharmacy medication reconciliations photovoltaic testing technician and/or nursing. Patients Allergies have been reviewed. Allergies Allergies Coded Allergies Penicillins (Unverified Allergy, Mild, 09/02/08) Sulfa (Sulfonamide Antibiotics) (Unverified Allergy, Mild, RASH, , 09/02/08) hydrocodone (Verified Allergy, Unknown, itching, 03/20/17) Past Zaigmds-Kexeeo-Qkettw Hx Patient Social History Tobacco Use?: Yes Tobacco type used: Cigarettes Substance use?: No Alcohol Use?: No Pt feels they are or have been: Unable to obtain Immunizations Up To Date Tetanus Booster (TDap): Unknown Seasonal Allergies Seasonal Allergies: Yes Current Status Advance Directives: Unable to obtain Communicates: Verbally Primary Language: Niuean Preferred Spoken Language: Niuean Is interpretation needed?: Yes Implanted or Applied Medical D: None Past Medical History 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: 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, 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 Sexually Transmitted Disease: No HIV/AIDS: No Gastroesophageal Reflux Osteoporosis, Arthritis Loss of Vision: Denies Hearing Impairment: Denies Blood Disorders: No Adverse Reaction/Blood Tranf: No Review of Systems Constitutional: No chills, No diaphoresis EENTM: mouth pain; No hearing loss, No blurred vision, No double vision Respiratory: No cough, No dyspnea on exertion Cardiovascular: No chest pain Gastrointestinal: No abdominal pain; diarrhea Genitourinary: No dysuria, No frequency Skin: No rash Psychiatric/Neurological: See HPI Physical Exam Physical Exam Vital Signs Vital Signs - First Documented 12/22/21 11:02 Temp 36.0 Pulse 69 Resp 13 B/P (MAP) 142/70 (94) Pulse Ox 99 O2 Delivery Room Air Capillary Refill : Less Than 3 Seconds Height, Weight, BMI Height: 5'3.50" Weight: 149lbs. 0.0oz. 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 Assessment/Plan Admission Diagnosis TIA rule out Assessment and Plan 1) Possible TIA * NIH score 0 on arrival * CT head w/out revealed no acute abnormalities * ASA 325 * Consulted [facility] neurology, appreciate recs * CT angio head and neck * MRI with and without * Cardiology consulted, appreciate recs * Echo ordered * Carotid duplex 2) Diarrhea * Being managed outpatient through [facility] * CT scan obtained today at [facility] * Monitor electrolytes * Supportive care 3) DM * SSI * A1C pending 4) HTN * Start home meds * Continue to monitor 5) HLD * Lipid panel ordered Dispo: Continue medical management on 5th floor. NAOMI KINSEY DO 12/23/212037: Past Chtesbw-Wlrrgy-Unrwck Hx Patient Social History Marrital Status: single Review of Systems Constitutional: see HPI Physical Exam Physical Exam General Appearance: No Apparent Distress Eyes: Right Eye Normal Inspection, Right Eye PERRL HEENT: PERRL/EOMI, TMs Normal, Normal ENT Inspection, Pharynx Normal, Moist Mucous Membranes Neck: Full Range of Motion, Normal Inspection, Non Tender Respiratory: Chest Non Tender, Lungs Clear, Normal Breath Sounds, No Accessory Muscle Use, No Respiratory Distress Cardiovascular: Regular Rate, Rhythm, No Edema, No Gallop, No JVD, No Murmur, Normal Peripheral Pulses Gastrointestinal: Normal Bowel Sounds, No Organomegaly, No Pulsatile Mass, Non Tender, Soft Back: Normal Inspection, No CVA Tenderness, No Vertebral Tenderness Extremity: Normal Capillary Refill, Normal Inspection, Normal Range of Motion, Non Tender, No Calf Tenderness, No Pedal Edema Neurologic/Psychiatric: Alert, Oriented x3, No Motor/Sensory Deficits, Normal Mood/Affect Skin: Normal Color, Warm/Dry Lymphatic: No Adenopathy Assessment/Plan Admission Diagnosis Assessment: Complicated migraine with neurological symptoms Admission Status: Observation Diagnosis/Problems Diagnosis/Problems (1) Right-sided headache Status: Acute Supervisory-Addendum Brief Verification & Attestation Participated in pt care: history, MDM, physical Personally performed: exam, history, MDM, supervision of care Care discussed with: Medical Student Procedures: n/a Results interpretation: Verified all documentation Verification and Attestation of Medical Student E/M Service A medical student performed and documented this service in my presence. I reviewed and verified all information documented by the medical student and made modifications to such information, when appropriate. I personally performed the physical exam and medical decision making. Naomi Kinsey, Dec 23, 2021,20:38 JB CONNOLLY Dec 22, 2021 14:08 NAOMI KINSEY DO Dec 23, 2021 20:38
[2021-12-22] MEDS ORDERED: BISACODYL 10 MG SUPP (DULCOLAX) PR PRN (14:15)
[2021-12-22] MEDS ORDERED: ONDANSETRON 4 MG/2 ML (SDV) Z0FRAN IV PRN (14:15)
[2021-12-22] MEDS ORDERED: MELATONIN 3 MG TABLET PO PRN (14:15)
[2021-12-22] MEDS ORDERED: ANTACID SUSP 30 ML UDC (MYLANTA) PO PRN (14:15)
[2021-12-22] MEDS ORDERED: diphenhydrAMINE 25 MG TAB (BENADRYL) PO PRN (14:15)
[2021-12-22] MEDS ORDERED: LACTULOSE SYRUP 10GM/15ML (ENULOSE) 30ML UDC PO PRN (14:15)
[2021-12-22] MEDS ORDERED: MILK OF MAGNESIA 400 MG/5 ML 30 ML UDC PO PRN (14:15)
[2021-12-22] MEDS ORDERED: CALCIUM CARBONATE 500 MG (TUMS) TAB.CHEW PO PRN (14:15)
[2021-12-22] MEDS ORDERED: ACETAMINOPHEN 325 MG TABLET PO PRN (14:15)
[2021-12-22] MEDS ORDERED: polyethylene glycoL POWDER 17 GM (MIRALAX) PACK PO PRN (14:15)
[2021-12-22] MEDS ORDERED: ONDANSETRON 4 MG (ZOFRAN) ORAL DISSOLVE TAB PO PRN (14:15)
[2021-12-22] MEDS ORDERED: diphenhydrAMINE 50 MG/ML INJ (BENADRYL) IVP PRN (14:15)
--- NOTE | 2021-12-22 14:22 | Consultation-Cardiology ---
HPI-Cardiology Cardiology Consultation Date of Consultation 12/22/21 Date of Admission Time Seen by Provider: 14:00 Indication: TIA HPI Patient is a 61 y/o female with history of HTN, HLP, DM, tobaccoism. Presented to the ER today with complaints of acute onset right sided headache with associated right sided facial and tongue numbness and aphasia. Episode occurred while patient was getting CT Abd/pelvis done at [facility] d/t chronic diarrhea and weight loss over the past month. Unsure how long episode lasted and is now resolved. Denies any previous hx of CVA or TIA. Denies any CAD. No other complaints at this time. Patient was seen at bedside, history was obtained with assistance of her son who was interpreting for us. She was admitted with acute headache, right-sided, has history of migraine. Has slightly slurred speech and right-sided weakness. Numbness of the face. Ap hasia. Currently feeling better, back to baseline, still having some right sided headache Home Medications & Allergies Allergies: Coded Allergies: Penicillins (Unverified Allergy, Mild, 09/02/08) Sulfa (Sulfonamide Antibiotics) (Unverified Allergy, Mild, RASH, , 09/02/08) hydrocodone (Verified Allergy, Unknown, itching, 03/20/17) Home Medication List Reviewed: Yes RUF-Xxbpqk-Rdynku Hx Patient Social History Marital Status: Employed/Student: retired Smoking Status: Current Everyday Smoker Type Used: Cigarettes Recent Hopitalizations: No Have you traveled recently?: Unable to obtain Alcohol Use?: No Immunizations Up To Date Tetanus Booster (TDap): Unknown Past Medical History HTN, HLP, DM, tobaccoism Family Medical History Significant Family History: No Pertinent Family Hx Family Medical Hx Noncontributory Review of Systems-General Review of Systems Constitutional: see HPI; No chills, No diaphoresis EENTM: see HPI; No hearing loss, No double vision, No vision loss Respiratory: see HPI; No cough, No dyspnea on exertion, No short of breath Cardiovascular: see HPI; No chest pain Gastrointestinal: No abdominal pain; diarrhea Genitourinary: see HPI; No dysuria, No frequency Musculoskeletal: see HPI; No back pain, No joint pain, No joint swelling, No muscle pain; muscle weakness Skin: see HPI; No rash Psychiatric/Neurological: See HPI, Headache (right sided h/a with numbness, aphasia, now resolved), Numbness, Paresthesia All Other Systems Reviewed Negative Unless Noted: Yes Reviewed Test Results Reviewed Test Results Lab Laboratory Tests 12/22/21 11:50: White Blood Count 10.0, Red Blood Count 4.99, Hemoglobin 14.1, Hematocrit 42, Mean Corpuscular Volume 85, Mean Corpuscular Hemoglobin 28, Mean Corpuscular Hemoglobin Concent 33, Red Cell Distribution Width 12.9, Platelet Count 185, Mean Platelet Volume 12.3H, Immature Granulocyte % (Auto) 0, Neutrophils (%) (Auto) 75, Lymphocytes (%) (Auto) 18, Monocytes (%) (Auto) 4, Eosinophils (%) (Auto) 2, Basophils (%) (Auto) 1, Neutrophils # (Auto) 7.5, Lymphocytes # (Auto) 1.8, Monocytes # (Auto) 0.4, Eosinophils # (Auto) 0.2, Basophils # (Auto) 0.1, Immature Granulocyte # (Auto) 0.0, Prothrombin Time 12.6, INR Comment 0.9, Activated Partial Thromboplast Time 32, Sodium Level 136, Potassium Level 4.2, Chloride Level 101, Carbon Dioxide Level 25, Anion Gap 10, Blood Urea Nitrogen 11, Creatinine 0.80, Estimat Glomerular Filtration Rate 83, BUN/Creatinine Ratio 14, Glucose Level 200H, Calcium Level 9.4, Corrected Calcium 9.0, Total Bilirubin 0.4, Aspartate Amino Transf (AST/SGOT) 13, Alanine Aminotransferase (ALT/SGPT) 14, Alkaline Phosphatase 99, Troponin I < 0.028, Total Protein 7.0, Albumin 4.5 ECG Impression ECG Initial ECG Rhythm: Normal Sinus Physical Exam Physical Exam Vital Signs Vital Signs - First Documented 12/22/21 11:02 Temp 36.0 Pulse 69 Resp 13 B/P (MAP) 142/70 (94) Pulse Ox 99 O2 Delivery Room Air Capillary Refill : Less Than 3 Seconds Height, Weight, BMI Height: 5'3.50" Weight: 149lbs. 0.0oz. 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 Full recovery at this time. Scheduled for MRI today. Could be secondary to migraine headache Will evaluate carotid duplex, 2D Echo, place on telemetry. Planning for MRI in a.m. HTN, restart home blood pressure medications and continue to monitor. HLP, reports maintained on statin as outpatient. I will evaluate lipid profile in the morning. DM, management per medical services Tobaccoism Chronic lower abdominal discomfort, diarrhea, weight loss over the past month, underwent CT abd/pelvis earlier today at [facility], results pending. Thank you for allowing us to participate in the management of Ms. Norman Cool. This is Sergio Fuentes PA-C, as a scribe for Dr. Strong. Patient was seen and evaluated with Sergio, I interviewed and examined the patient. Made few modification to the note using Italic font. Agree with the current scribed note SERGIO CLARK Dec 22, 2021 14:22 ROSANA STRONG MD Dec 22, 2021 15:46
[2021-12-22] MEDS ORDERED: ENOXAPARIN 40 MG/0.4 ML (LOVENOX) SYR SC SCH (14:30)
--- NOTE | 2021-12-22 14:58 | Occ Therapy Progress Note ---
Therapy Progress Note OT orders received and chart reviewed. RN requests to hold evaluation this date as pt currently receiving an ECHO and scheduled to get Ultrasound and MRI shortly after. RN states pt has already walked to the bathroom, toileted, and changed her gown independently. OT to attempt eval 12/23/21. Asia Begum OT Dec 22, 2021 14:58
--- NOTE | 2021-12-22 14:58 | Physical Therapy Progress Note ---
Therapy Progress Note Order for PT evaluation received. Nurse states that patient has extensive testing this afternoon, one right after the other and wouldn't be available for quite a while. Will try back in the morning. ALEXANDRA GOLDMAN PT Dec 22, 2021 14:58
[2021-12-22 15:00] VITALS: BP 117/61
[2021-12-22 15:05] VITALS: BP 142/70
[2021-12-22] MEDS ORDERED: RT-ALBUTEROL SULF 2.5 MG/3 ML PRE-MIX VIAL INH PRN (15:15)
--- NOTE | 2021-12-22 15:56 | Diagnostic Imaging Report ---
MRI brain without contrast Technique: Multiplanar, multisequence MRI of the brain was performed without contrast. Indication: Headache and transient ischemic attack. Comparison: CT head performed earlier the same day. Findings: The diffusion series demonstrates no restriction to suggest acute ischemia. There is no MR evidence of acute intracranial hemorrhage. There is no evidence of intracranial mass effect or shift. Age-appropriate global cerebral volume loss is demonstrated. There are moderate background chronic microvascular ischemic changes demonstrated within the subcortical and periventricular white matter. Ozuna and white matter signal characteristics are otherwise unremarkable. There is no abnormal extra-axial fluid collection. The ventricles are appropriate in size and configuration. The basilar cisterns are patent. Pituitary gland and pineal region appear normal. There is normal alignment of the craniocervical junction. No acute posterior fossa abnormality is demonstrated. The mastoids are clear. The paranasal sinuses are clear. The orbital contents are unremarkable. Expected arterial and dural venous sinus flow voids appear preserved. Impression: 1. No MR evidence of an acute intracranial abnormality. There is no evidence of acute ischemia, hemorrhage, intracranial mass effect, or hydrocephalus. 2. Age-appropriate global cerebral volume loss. Moderate chronic microvascular ischemic changes are demonstrated throughout the white matter. Dictated by: Dictated on workstation # [id number]
[2021-12-22] MEDS: inSUlin ASPART (NovoLOG) 1 UNIT/0.01 ML (CHARGE PER UNIT) SC SCH ×2 (16:30→20:38)
--- NOTE | 2021-12-22 16:37 | Diagnostic Imaging Report ---
PROCEDURE: US carotid duplex, bilateral. INDICATION: 61-year-old female, transient ischemic attack, headache, history of tobacco use and hypertension. TECHNIQUE: Multiple real-time grayscale images were obtained over the carotid arteries in various projections bilaterally. Additional spectral analysis and color Doppler and Duplex images were also obtained. CORRELATION: None FINDINGS: Right carotid circulation: There is minimal plaque at the carotid bulb extending into the internal carotid artery. The right common carotid artery is normal in course and caliber. The right internal carotid artery is patent. No hemodynamically significant stenosis is present at this time. Right external carotid artery is patent. Left carotid circulation: There is minimal plaque at the carotid bulb. The left common carotid artery is normal in course and caliber. The left internal carotid artery is patent. No hemodynamically significant stenosis is present at this time. Left external carotid artery is patent. Antegrade flow in the bilateral vertebral arteries. DOPPLER (peak systolic velocity M/S Right Left CCA .74 .59 ICA Proximal .60 .57 ICA Mid .59 .70 ICA Distal .89 .76 RATIO 1.2 1.3 ECA .64 .68 VERT .49 .49 IMPRESSION: 1. Minimal atherosclerosis involving right slightly greater than left. 2. No sonographic evidence to suggest a hemodynamically significant stenosis of the internal carotid arteries at this time. Parameters based on the consensus panel Ozuna-Scale and Doppler ultrasound criteria published March 2003, Radiology, Volume 229. Dictated by: Dictated on workstation # [id number]
[2021-12-22 17:00] VITALS: BP 124/64
[2021-12-22 20:19] VITALS: BP 124/51
[2021-12-22] MEDS: SENNOSIDES 8.6 MG (SENOKOT) TAB PO SCH (20:33)
[2021-12-22] MEDS: DOCUSATE SODIUM 100 MG (COLACE) CAP PO SCH (20:33)
[2021-12-23] VITALS: BP 114/77
[2021-12-23 04:24] VITALS: BP 109/67
[2021-12-23 04:27] LABS: BASOPHILS # (AUTO) 0.1 10^3/uL (0.0-0.1); BASOPHILS % (AUTO) 1 % (0-10); EOSINOPHILS # (AUTO) 0.2 10^3/uL (0.0-0.3); EOSINOPHILS % (AUTO) 3 % (0-10); HEMATOCRIT 41 % (35-52); HEMOGLOBIN 13.9 g/dL (11.5-16.0); LYMPHOCYTES # (AUTO) 2.5 10^3/uL (1.0-4.0); LYMPHOCYTES % (AUTO) 29 % (12-44); MEAN CORPUSCULAR HEMOGLOBIN 28 pg (25-34); MEAN CORPUSCULAR HGB CONC 34 g/dL (32-36); MEAN CORPUSCULAR VOLUME 83 fL (80-99); MEAN PLATELET VOLUME 12.1 fL (9.0-12.2); MONOCYTES # (AUTO) 0.4 10^3/uL (0.0-1.0); MONOCYTES % (AUTO) 5 % (0-12); NEUTROPHILS # (AUTO) 5.3 10^3/uL (1.8-7.8); NEUTROPHILS % (AUTO) 62 % (42-75); PLATELET COUNT 169 10^3/uL (130-400); WHITE BLOOD COUNT 8.5 10^3/uL (4.3-11.0)
[2021-12-23 04:41] LABS: ALBUMIN 4.2 GM/DL (3.2-4.5); POTASSIUM 3.9 MMOL/L (3.6-5.0)
[2021-12-23 04:42] LABS: CALCIUM 9.5 MG/DL (8.5-10.1)
[2021-12-23 04:43] LABS: TOTAL PROTEIN 6.6 GM/DL (6.4-8.2)
[2021-12-23 04:45] LABS: BILIRUBIN,TOTAL 0.8 MG/DL (0.1-1.0)
[2021-12-23] MEDS: inSUlin ASPART (NovoLOG) 1 UNIT/0.01 ML (CHARGE PER UNIT) SC SCH (04:46)
[2021-12-23 04:47] LABS: CREATININE SERUM 0.71 MG/DL (0.60-1.30)
[2021-12-23 07:50] VITALS: BP 112/67
[2021-12-23] MEDS ORDERED: OMEGA 3 (FISH OIL) 1000 MG CAP PO SCH (08:00)
--- NOTE | 2021-12-23 08:22 | Cardiology Progress Note ---
Subjective Date Seen by Provider: Dec 23, 2021 Time Seen by Provider: 08:19 Subjective/Events-last exam Patient was seen at bedside, feeling better Still having mild headache. Denied any chest pain Review of Systems General: No Chills, No Night Sweats, No Fatigue, No Malaise, No Appetite, No Other HEENT: No Head Aches, No Visual Changes, No Eye Pain, No Ear Pain, No Dysphasia, No Sinus Congestion, No Post Nasal Drip, No Sore Throat, No Other Pulmonary: No Dyspnea, No Cough, No Pleuritic Chest Pain, No Other Cardiovascular: No: Chest Pain, Palpitations, Orthopnea, Paroxysmal Noc. Dyspnea, Edema, Lt Headedness, Other Objective-Cardiology Exam Last Set of Vital Signs Vital Signs 12/23/21 12/23/21 04:24 07:50 Temp 36.3 Pulse 75 Resp 20 B/P (MAP) 112/67 (82) Pulse Ox 98 O2 Delivery Room Air I&O Intake and Output 12/23/21 00:00 Intake Total 0 ml Balance 0 ml Intake Oral 0 ml Daily Weight Change No General: Alert, Oriented X3, Cooperative HEENT: Atraumatic, PERRLA Neck: Supple, No JVD, No Thyromegaly Lungs: Clear to Auscultation, Normal Air Movement Heart: Regular Rate, Normal S1, Normal S2, No Murmurs Abdomen: Normal Bowel Sounds, Soft, No Tenderness, No Hepatosplenomegaly, No Masses Extremities: No Clubbing, No Cyanosis, No Edema, Normal Pulses, No Tenderness/Swelling Skin: No Rashes, No Breakdown, No Significant Lesion Neuro: Normal Gait, Normal Speech, Strength at 5/5 X4 Ext, Normal Tone, Sensation Intact Psych/Mental Status: Mental Status NL, Mood NL Results Lab Laboratory Tests 12/22/21 11:50 12/23/21 04:17 A/P-Cardiology Admission Diagnosis TIA HTN HLP DM Assessment/Plan Status post acute change of mental status, double vision and slurred speech, significant improvement today. Work-up has been negative Probably secondary to migraine. Reporting improvement. Continue to monitor Hypertension, better controlled. Continue current medication monitor. Hyperlipidemia, lipid profile was done on December 23, 2021 showing total cholesterol 162, triglyceride 376, LDL 72, HDL 26 Maintained on Lipitor. Adding fish oil. DM, management per medical services Tobaccoism Chronic lower abdominal discomfort, diarrhea, weight loss over the past month, underwent CT abd/pelvis earlier today at [facility], results pending. ROSANA GARCIA MD Dec 23, 2021 08:22
[2021-12-23] MEDS: DOCUSATE SODIUM 100 MG (COLACE) CAP PO SCH (08:55)
[2021-12-23] MEDS: SENNOSIDES 8.6 MG (SENOKOT) TAB PO SCH (08:55)
[2021-12-23] MEDS ORDERED: DOCUSATE SODIUM 100 MG (COLACE) CAP PO SCH (09:00)
[2021-12-23] MEDS ORDERED: ASPIRIN 325 MG (5 GR) TABLET PO SCH (09:00)
--- NOTE | 2021-12-23 09:52 | Speech Therapy Progress Note ---
Therapy Progress Note Speech pathology received the consultation request and reviewed the patient's medical chart extensively. The clinician visited with the patient at 0930. The clinician dialed the language line for interpretation, however, the patient requested her son as her preferred clerk general office. The patient's son, Patrick, was contacted and provided interpretation throughout the discussion. The patient denied cognitive, language, speech, or swallowing difficulties at this time, st ating she has returned to her baseline level in these areas. The patient reported right lower jaw pain and intermittent eye "shaking." The RN was notified of the patient's concerns. A oral mechanism evaluation was completed which did not display lingual or oral deficits. The patient's MRI does not reveal an acute infarct at this time. As the patient denied difficulties in speech pathology's scope of practice, speech pathology will sign off at this time. Please re-consult with concerns. Thank you! JOAN TOVAR Dec 23, 2021 09:52
--- NOTE | 2021-12-23 10:28 | Occupational Therapy Eval ---
OT Evaluation-General/PLF Medical Diagnosis Admission Date Dec 22, 2021 at 13:14 Medical Diagnosis: TIA Onset Date: Dec 22, 2021 Therapy Diagnosis Therapy Diagnosis: n/a Height/Weight Height (Feet): 5 Height (Inches): 3.50 Weight (Pounds): 149 Weight (Ounces): 0.0 Precautions Precautions/Isolations: Fall Prevention, Standard Precautions Referral Referral Reason: Evaluation/Treatment Medical History Pertinent Medical History: Arthritis, DM, GERD, HTN Current History Pt presents with R sided head pain and numbness. MRI and CT of head reveal no acute findings. Pt called her son who assisted with translating. Per son, pt lives with her spouse and son in a single story home. She was indep with adls and iadls prior to admission and was not using any AD for mobility. Reviewed History: Yes Social History Home: Single Level Current Living Status: Spouse ADL-Prior Level of Function SCALE: Activities may be completed with or without assistive devices. 6-Zypblpuyke-qilpnjc completes the activity by him/herself with no assistance from a helper. 5-Set-up or Clean-up Assistance-helper sets up or cleans up; patient completes activity. [place] assists only prior to or following the activity. 4-Supervision or Touching Assistance-helper provides verbal cues and/or touching/steadying and/or contact guard assistance as patient completes activity. Assistance may be provided throughout the activity or intermittently. 3-Partial/Moderate Assistance-helper does LESS THAN HALF the effort. [place] lifts, holds or supports trunk or limbs, but provides less than half the effort. 2-Substantial/Maximal Assistance-helper does MORE THAN HALF the effort. [place] lifts or holds trunk or limbs and provides more than half the effort. 3-Tkqloqzim-ebdhll does ALL the effort. Patient does none of the effort to complete the activity. Or, the assistance of 2 or more helpers is required for the patient to complete the activity. If activity was not attempted, code reason: 7-Patient Refused. 9-Not Applicable-not attempted and the patient did not perform the activity before the current illness, exacerbation or injury. 10-Not Attempted due to Environmental Limitations-(lack of equipment, weather restraints, etc.). 88-Not Attempted due to Medical Conditions or Safety Concerns. Self Care: Independent Functional Cognition: Independent OT Current Status Subjective Pt denies any pain. She reports he R eye is twitching but no changes in her vision. Visual pursuits intact. Appearance Pt returned to supine in bed, all needs within reach at OT departure. Mental Status/Objective Patient Orientation: Person, Place, Situation Attachments: IV, Telemetry Current Glasses/Contacts: Yes Hearing Aids: No Hand Dominance: Right Upper Extremity ROM WNL Upper Extremity Coordination intact finger to nose but slow with movements Upper Extremity Strength 5/5 throughout ADL-Treatment Lower Body Dressing (QC): 5 On/Off Footwear (QC): 5 Toileting Hygiene (QC): 6 Supine<>sit: indep. Post set up, pt able to don bilateral socks without difficulty. She stood and ambulated to/from bathroom with supervision for safety, no AD used. She was able to lower and stand from toilet without assistance. Indep with daja care and clothing management. Pt stood at sink for hand hygiene, no unsteadiness exhibited. Her son reports that pt feels that she is back at her baseline except mild numbness in RUE and twitching of her R eye. Light touch and visual pursuits intact. Education OT Patient Education: Purpose of tx/functional activities Teaching Recipient: Patient, Family Teaching Methods: Discussion Response to Teaching: Verbalize Understanding, Return Demonstration OT Residential Goals [employer] Goals 1=Demonstrate adherence to instructed precautions during ADL tasks. 2=Patient will verbalize/demonstrate understanding of assistive devices/modifications for ADL. 3=Patient will improve strength/tolerance for activity to enable patient to perform ADL's. OT Education/Plan Problem List/Assessment Assessment: No Skilled OT Needs ID'd Discharge Recommendations Plan/Recommendations: Discontinue OT Therapy Discharge Recommendati: Home & Family Treatment Plan/Plan of Care Treatment,Training & Education: Yes Patient would benefit from OT for education, treatment and training to promote independence in ADL's, mobility, safety and/or upper extremity function for ADL's. Plan of Care: ADL Retraining, Functional Mobility Treatment Duration: Dec 23, 2021 Frequency: 1 time per week Estimated Hrs Per Day: .25 hour per day Agreement: Yes Rehab Potential: Good Time/GCodes Start Time: 09:47 Stop Time: 10:02 Total Time Billed (hr/min): 15 Billed Treatment Time 1 visit Asia Russell OT Dec 23, 2021 10:28
--- NOTE | 2021-12-23 10:38 | Physical Therapy Evaluation ---
PT Evaluation-General Medical Diagnosis Admission Date Dec 22, 2021 at 13:14 Medical Diagnosis: TIA Onset Date: Dec 22, 2021 Therapy Diagnosis Therapy Diagnosis: independent with mobility Height/Weight Height (Feet): 5 Height (Inches): 3.50 Weight (Pounds): 149 Weight (Ounces): 0.0 Precautions Precautions/Isolations: Fall Prevention, Standard Precautions Referral Physician: Naomi Burroughs DO Reason for Referral: Evaluation/Treatment Medical History Pertinent Medical History: Arthritis, DM, GERD, HTN Additional Medical History Past Medical History Surgeries: Yes (LT KNEE, LIPOMA ON BACK, BREAST BX) Gallbladder, Hysterectomy Respiratory: No Cardiac: No Neurological: No Reproductive Disorders: No [employer]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 5-Lnroxeiuwt-qoyoubu completes the activity by him/herself with no assistance from a helper. 5-Set-up or Clean-up Assistance-helper sets up or cleans up; patient completes activity. [place] assists only prior to or following the activity. 4-Supervision or Touching Assistance-helper provides verbal cues and/or touching/steadying and/or contact guard assistance as patient completes activity. Assistance may be provided throughout the activity or intermittently. 3-Partial/Moderate Assistance-helper does LESS THAN HALF the effort. [place] lifts, holds or supports trunk or limbs, but provides less than half the effort. 2-Substantial/Maximal Assistance-helper does MORE THAN HALF the effort. [place] lifts or holds trunk or limbs and provides more than half the effort. 4-Ybdugtldy-pjsbwq does ALL the effort. Patient does none of the effort to complete the activity. Or, the assistance of 2 or more helpers is required for the patient to complete the activity. If activity was not attempted, code reason: 7-Patient Refused. 9-Not Applicable-not attempted and the patient did not perform the activity before the current illness, exacerbation or injury. 10-Not Attempted due to Environmental Limitations-(lack of equipment, weather restraints, etc.). 88-Not Attempted due to Medical Conditions or Safety Concerns. Bed Mobility: 6 Transfers (B,C,W/C): 6 Gait: 6 Stairs: 6 Indoor Mobility (Ambulation): Independent Stairs: Independent PT Evaluation-Current Subjective Patient in bed pre tx, agrees to PT, has no complaints of pain. Patient uses her son on the phone to translate. Pt/Family Goals none stated Objective Patient Orientation: Person, Place, Situation ROM/Strength ROM Lower Extremities WNL Sensory Vision: Functional Hearing: Functional Hand Dominance: Right Transfers Roll Left to Right (QC): 6 Sit to Lying (QC): 6 Lying to Sitting/Side of Bed(Q: 6 Sit to Stand (QC): 6 Chair/Nil-to-Oropl Xfer(QC): 6 Gait Does the Patient Walk?: Yes Mode of Locomotion: Walk Anticipated Mode of Locomotion: Walk Walk 10 feet (QC): 6 Walk 50 ft with 2 Turns(QC): 6 Walk 150 ft (QC): 6 Distance: 150' Gait Assistive Device: None Comments/Gait Description brisk ambulation, steady Balance Sitting Static: Normal Sitting Dynamic: Normal Standing Static: Normal Standing Dynamic: Normal Assessment/Needs Patient in bed post tx with nurse call, phone, tray, all needs met. Patient has normal functional mobility, doesn't need PT services at this time. Rehab Potential: Good PT Plan Treatment/Plan Treatment Plan: Discontinue PT Treatment Duration: Dec 23, 2021 Frequency: Patient and/or Family Agrees t: Yes Safety Risks/Education Patient Education: Gait Training, Transfer Techniques, Correct Positioning, Safety Issues Teaching Recipient: Patient Teaching Methods: Demonstration, Discussion Response to Teaching: Verbalize Understanding Discharge Recommendations Plan DC Therapy Discharge Recommendati: Home & Family Time/GCodes Time In: 1016 Time Out: 1026 Total Billed Treatment 1 visit EVL Shazia' ALEXANDRA GOLDMAN PT Dec 23, 2021 10:38
[2021-12-23] MEDS ORDERED: ATOR40TA PO (11:10)
[2021-12-23] MEDS ORDERED: ASPI-1238 PO (11:10)
[2021-12-23] MEDS ORDERED: OMG1KC PO (11:10)
--- NOTE | 2021-12-23 11:11 | Discharge Summary ---
Discharge Summary Hospital Course Was the Problem List Reviewed?: Yes Problems/Dx: (1) Right-sided headache Status: Acute Hospital Course Date of Admission: Dec 22, 2021 at 13:14 Admission Diagnosis : [facility] [place] Date of Discharge: 12/23/21 Discharge Diagnosis: Complicated migraine Hospital Course: Hospital Course: Carmencita Cristina is a 61 yo female with past medical history of HTN, HLD, DM, and Tobaccoism that was admitted for TIA rule out after developing a severe right sided headache and numbness to her right lips and tong ue. Upon arrival her symptoms had begun to resolve and her NIH score was 0. A CT non con showed no abnormalities and she was started on Aspirin. She had a full TIA workup complete including Carotid artery ultrasound, echocardiogram, and MRI w/out contrast all of which were unremarkable. Symptoms continued to improve and she is being discharged home in stable conditions on Aspirin 81, Lipitor 40, and fish oil with instructions to follow up with her PCP. JB CONNOLLY Labs and Pending Lab Test: Laboratory Tests 12/22/21 11:50: White Blood Count 10.0, Red Blood Count 4.99, Hemoglobin 14.1, Hematocrit 42, Mean Corpuscular Volume 85, Mean Corpuscular Hemoglobin 28, Mean Corpuscular Hemoglobin Concent 33, Red Cell Distribution Width 12.9, Platelet Count 185, Mean Platelet Volume 12.3H, Immature Granulocyte % (Auto) 0, Neutrophils (%) (Auto) 75, Lymphocytes (%) (Auto) 18, Monocytes (%) (Auto) 4, Eosinophils (%) (Auto) 2, Basophils (%) (Auto) 1, Neutrophils # (Auto) 7.5, Lymphocytes # (Auto) 1.8, Monocytes # (Auto) 0.4, Eosinophils # (Auto) 0.2, Basophils # (Auto) 0.1, Immature Granulocyte # (Auto) 0.0, Prothrombin Time 12.6, INR Comment 0.9, Activated Partial Thromboplast Time 32, Sodium Level 136, Potassium Level 4.2, Chloride Level 101, Carbon Dioxide Level 25, Anion Gap 10, Blood Urea Nitrogen 11, Creatinine 0.80, Estimat Glomerular Filtration Rate 83, BUN/Creatinine Ratio 14, Glucose Level 200H, Mean Blood Glucose 134H, Hemoglobin A1c 6.3H, Calcium Level 9.4, Corrected Calcium 9.0, Total Bilirubin 0.4, Aspartate Amino Transf (AST/SGOT) 13, Alanine Aminotransferase (ALT/SGPT) 14, Alkaline Phosphatase 99, Troponin I < 0.028, Total Protein 7.0, Albumin 4.5 12/22/21 16:42: Glucometer 88 12/22/21 20:37: Glucometer 99 12/23/21 04:17: White Blood Count 8.5, Red Blood Count 4.94, Hemoglobin 13.9, Hematocrit 41, Mean Corpuscular Volume 83, Mean Corpuscular Hemoglobin 28, Mean Corpuscular Hemoglobin Concent 34, Red Cell Distribution Width 12.7, Platelet Count 169, Mean Platelet Volume 12.1, Immature Granulocyte % (Auto) 0, Neutrophils (%) (Auto) 62, Lymphocytes (%) (Auto) 29, Monocytes (%) (Auto) 5, Eosinophils (%) (Auto) 3, Basophils (%) (Auto) 1, Neutrophils # (Auto) 5.3, Lymphocytes # (Auto) 2.5, Monocytes # (Auto) 0.4, Eosinophils # (Auto) 0.2, Basophils # (Auto) 0.1, Immature Granulocyte # (Auto) 0.0, Sodium Level 140, Potassium Level 3.9, Chloride Level 104, Carbon Dioxide Level 23, Anion Gap 13, Blood Urea Nitrogen 11, Creatinine 0.71, Estimat Glomerular Filtration Rate 95, BUN/Creatinine Ratio 15, Glucose Level 110H, Calcium Level 9.5, Corrected Calcium 9.3, Total Bilirubin 0.8, Aspartate Amino Transf (AST/SGOT) 14, Alanine Aminotransferase (ALT/SGPT) 12, Alkaline Phosphatase 91, Total Protein 6.6, Albumin 4.2, Triglycerides Level 376H, Cholesterol Level 162, LDL Cholesterol Direct 77, VLDL Cholesterol 75H, HDL Cholesterol 26L Home Meds Active Ativan (Lorazepam) 0.5 Mg Tablet 0.5 Mg PO BID PRN 7 Days Reported Naproxen 500 Mg Tablet. 500 Mg PO DAILY Omeprazole 20 Mg Capsule.dr 20 Mg PO DAILY Assessment/Pt Instructions PCP in 1 week Discharge Planning: <30 minutes discharge planning Discharge Instructions Discharge Diet: ADA Diet Discharge Physical Examination Vital Signs Vital Signs Date Time Temp Pulse Resp B/P (MAP) Pulse Ox O2 Delivery O2 Flow Rate FiO2 12/23/21 09:00 98 Room Air 12/23/21 07:50 36.3 75 20 112/67 (82) General Appearance: No Apparent Distress, WD/WN, Chronically ill Allergies: Coded Allergies: Penicillins (Unverified Allergy, Mild, 09/02/08) Sulfa (Sulfonamide Antibiotics) (Unverified Allergy, Mild, RASH, , 09/02/08) hydrocodone (Verified Allergy, Unknown, itching, 03/20/17) Discharge Summary Date of Admission Dec 22, 2021 at 13:14 Date of Discharge Discharge Date: Dec 23, 2021 Admission Diagnosis TIA rule out BLANCA KINSEY DO Dec 23, 2021 11:11
[2021-12-23 12:00] VITALS: BP 122/66
--- NOTE | 2021-12-23 13:00 | Progress Note ---
JB CONNOLLY 12/23/21 1300: Progress Note Hospital Course: Carmencita Cristina is a 61 yo female with past medical history of HTN, HLD, DM, and Tobaccoism that was admitted for TIA rule out after developing a severe right sided headache and numbness to her right lips and tongue. Upon arrival her symptoms had begun to resolve and her NIH score was 0. A CT non con showed no abnormalities and she was started on Aspirin. She had a full TIA workup complete including Carotid artery ultrasound, echocardiogram, and MRI w/out contrast all of which were unremarkable. Symptoms continued to improve and she is being discharged home in stable conditions on Aspirin 81, Lipitor 40, and fish oil with instructions to follow up with her PCP. BLANCA KINSEY DO 12/23/212047: Supervisory-Addendum Brief Verification & Attestation Participated in pt care: history, MDM, physical Personally performed: exam, history, MDM, supervision of care Care discussed with: Medical Student Procedures: n/a Results interpretation: Verified all documentation Verification and Attestation of Medical Student E/M Service A medical student performed and documented this service in my presence. I reviewed and verified all information documented by the medical student and made modifications to such information, when appropriate. I personally performed the physical exam and medical decision making. Blanca Kinsey, Dec 23, 2021,20:48 JB CONNOLLY Dec 23, 2021 13:00 BLANCA KINSEY DO Dec 23, 2021 20:48
== END 2021-12-23 11:11 | disposition home or self-care (01) ==
LOC: EDUNIT# 10:10 → ER 10:12 → CSD 13:14 → UNDOADMOB 13:14 → CSD 14:23 → UNDODISOB 12-23 13:00
PROVIDERS: ADMIT Internal Medicine; ATTEND Internal Medicine
DX: G43.109 Migraine with aura, not intractable, without status migrainosus (principal); I10 Essential (primary) hypertension; E78.5 Hyperlipidemia, unspecified; E11.9 Type 2 diabetes mellitus without complications; F17.210 Nicotine dependence, cigarettes, uncomplicated; R19.7 Diarrhea, unspecified
CPT/HCPCS: 36415; 70450; 70551; 71045; 80053; 80061; 82947; 83036; 84484; 85025; 85610; 85730; 93005; 93306; 93880; 94664; 96372

== ENCOUNTER 2022-04-13 11:40 | Emergency (ER) | payer OTHER ==
[~2022-04-13] VITALS: Ht 160 cm; Wt 61.7 kg
[~2022-04-13 11:40] MED LIST changes: +ASPI-1238 PO; +ATOR40TA PO; +OMG1KC PO
[2022-04-13 12:35] LABS: BILIRUBIN,URINE NEGATIVE (NEGATIVE); CLARITY,URINE CLEAR; COLOR,URINE YELLOW; GLUCOSE, URINE (UA) NEGATIVE (NEGATIVE); KETONES,URINE NEGATIVE (NEGATIVE); LEUKOCYTE ESTERASE ,URINE NEGATIVE (NEGATIVE); NITRITE,URINE NEGATIVE (NEGATIVE); PH,URINE 6.5 (5-9); PROTEIN,URINE NEGATIVE (NEGATIVE)
[2022-04-13 12:42] LABS: BACTERIA,URINE NEGATIVE /HPF
[2022-04-13 12:52] LABS: BASOPHILS % (AUTO) 1 % (0-10); EOSINOPHILS # (AUTO) 0.1 10^3/uL (0.0-0.3); EOSINOPHILS % (AUTO) 2 % (0-10); HEMATOCRIT 39 % (35-52); LYMPHOCYTES # (AUTO) 1.5 10^3/uL (1.0-4.0); LYMPHOCYTES % (AUTO) 19 % (12-44); MEAN CORPUSCULAR HEMOGLOBIN 28 pg (25-34); MEAN CORPUSCULAR HGB CONC 33 g/dL (32-36); MEAN CORPUSCULAR VOLUME 84 fL (80-99); MONOCYTES # (AUTO) 0.5 10^3/uL (0.0-1.0); MONOCYTES % (AUTO) 6 % (0-12); NEUTROPHILS # (AUTO) 5.8 10^3/uL (1.8-7.8); NEUTROPHILS % (AUTO) 72 % (42-75); PLATELET COUNT 213 10^3/uL (130-400)
--- NOTE | 2022-04-13 12:57 | ED General ---
General Chief Complaint: - Reproductive Stated Complaint: KIDNEY STONE Nursing Triage Note: PT AMB TO TRIAGE W C/O RIGHT LOWER BACK PAIN THAT RADIATES UP TO RIGHT SHOULDER, PT VISTED PCP YESTERDAY AND WAS ADVISED SHE LIKELY HAS A KIDNEY STONE. PAIN BEGAN 04/09/22. 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 Source of Information: Patient, Curriculum Coordinator Exam Limitations: Language Barrier History of Present Illness Date Seen by Provider: Apr 13, 2022 Time Seen by Provider: 11:56 Initial Comments This 62-year-old woman presents to the emergency room with complaints of right- sided pleuritic chest pain radiating into her back. She denies cough or fever. Patient has been present for about 4 days. She was seen by her PCP yesterday and there was some concern expressed for kidney stone. She is afebrile at present but in distress from pleuritic chest pain. Her primary care provider is Sirisha Ceja at [facility]. Allergies and Home Medications Allergies Coded Allergies: Penicillins (Unverified Allergy, Mild, 09/02/08) Sulfa (Sulfonamide Antibiotics) (Unverified Allergy, Mild, RASH, , 09/02/08) hydrocodone (Verified Allergy, Unknown, itching, 03/20/17) Iodinated Contrast Media (Verified Adverse Reaction, Intermediate, Right face pain and numbness, 04/13/22) Experienced right face pain and numbness briefly after contrast dye x 2 Patient Home Medication List Home Medication List Reviewed: Yes Aspirin (Aspirin EC) 81 Mg Tablet.dr, 81 MG PO DAILY Prescribed by: BLANCA KINSEY on 12/23/21 111 Atorvastatin Calcium (Lipitor) 40 Mg Tablet, 40 MG PO DAILY Prescribed by: BLANCA KINSEY on 12/23/21 1110 Azithromycin (Azithromycin) 250 Mg Tablet, 250 MG PO UD Prescribed by: CEM RUCKER on 04/13/22 161 Cefdinir (Cefdinir) 300 Mg Capsule, 300 MG PO BID Prescribed by: CEM RUCKER on 04/13/22 161 Naproxen (Naproxen) 500 Mg Tablet., 500 MG PO DAILY, (Reported) Entered as Reported by: VIVIANA OJEDA on 03/20/17 1217 [place] 3 Polyunsat Fatty Acids (Fish Oil 1,000 mg Capsule) 340 Mg-1,000 Mg Cap, 1,000 MG PO BID WITH MEALS Prescribed by: BLANCA KINSEY on 12/23/21 1110 Omeprazole (Omeprazole) 20 Mg Capsule.dr, 20 MG PO DAILY, (Reported) Entered as Reported by: VIVIANA OJEDA on 03/20/17 1217 Review of Systems Review of Systems Constitutional: no symptoms reported EENTM: no symptoms reported Respiratory: see HPI Cardiovascular: no symptoms reported Gastrointestinal: no symptoms reported Genitourinary: no symptoms reported : No Musculoskeletal: no symptoms reported Skin: no symptoms reported Psychiatric/Neurological: No Symptoms Reported Hematologic/Lymphatic: No Symptoms Reported Immunological/Allergic: no symptoms reported Past Edmkada-Zuoyew-Przacu Hx Patient Social History Tobacco Use?: Yes Tobacco type used: Cigarettes Smoking Status: Current Everyday Smoker Use of E-Cig and/or Vaping dev: No Substance use?: No Alcohol Use?: No Immunizations Up To Date Tetanus Booster (TDap): Unknown Influenza Vaccine Up-to-Date: Yes; Up-to-Date First/Initial COVID19 Vaccinat: 2020 Second COVID19 Vaccination Aram: 2020 Third COVID19 Vaccination Date: 2021 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: [email or web address] Seasonal Allergies Seasonal Allergies: Yes Past Medical History Surgeries: Yes (LT KNEE, LIPOMA ON BACK, BREAST BX) Gallbladder, Hysterectomy Respiratory: No Cardiac: Yes High Cholesterol, Hypertension Neurological: No Reproductive Disorders: No 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 Sexually Transmitted Disease: No HIV/AIDS: No Gastrointestinal: Yes (GASTRITIS) Colitis, Gastroesophageal Reflux Musculoskeletal: Yes (CHRONIC NECK PAIN WITH RADICULAR SYMPTOMS) Osteoporosis, Arthritis Endocrine: No (Prediabetes) Loss of Vision: Denies Hearing Impairment: Denies Cancer: No Psychosocial: No Integumentary: Yes (POSTERIOR NECK MASS) Blood Disorders: No Adverse Reaction/Blood Tranf: No Family Medical History No Pertinent Family Hx Physical Exam Vital Signs Vital Signs - First Documented 04/13/22 11:50 Temp 36.2 Pulse 88 Resp 20 B/P (MAP) 114/71 (85) Pulse Ox 94 O2 Delivery Room Air Capillary Refill : Less Than 3 Seconds Height, Weight, BMI Height: 5'3.50" Weight: 149lbs. 0.0oz. 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 Norm as Tested Progress/Results/Core Measures Suspected Sepsis SIRS Temperature: Pulse: 88 Respiratory Rate: 20 Laboratory Tests 04/13/22 12:44: White Blood Count 8.0 Blood Pressure 114 /71 Mean: 85 Laboratory Tests 04/13/22 12:44: Creatinine 0.77, Platelet Count 213, Total Bilirubin 0.7 Results/Orders Lab Results Laboratory Tests Test 04/13/22 12:26 04/13/22 12:44 Range/Units Urine Color YELLOW Urine Clarity CLEAR Urine pH 6.5 5-9 Urine Specific [place] 1.010 L 1.016-1.022 Urine Protein NEGATIVE NEGATIVE Urine Glucose (UA) NEGATIVE NEGATIVE Urine Ketones NEGATIVE NEGATIVE Urine Nitrite NEGATIVE NEGATIVE Urine Bilirubin NEGATIVE NEGATIVE Urine Urobilinogen 0.2 < = 1.0 MG/DL Urine Leukocyte Esterase NEGATIVE NEGATIVE Urine RBC (Auto) NEGATIVE NEGATIVE Urine RBC NONE /HPF Urine WBC NONE /HPF Urine Squamous Epithelial Cells 2-5 /HPF Urine Crystals NONE /LPF Urine Bacteria NEGATIVE /HPF Urine Casts NONE /LPF Urine Mucus NEGATIVE /LPF Urine Culture Indicated NO White Blood Count 8.0 4.3-11.0 10^3/uL Red Blood Count 4.70 3.80-5.11 10^6/uL Hemoglobin 13.0 11.5-16.0 g/dL Hematocrit 39 35-52 % Mean Corpuscular Volume 84 80-99 fL Mean Corpuscular Hemoglobin 28 25-34 pg Mean Corpuscular Hemoglobin Concent 33 32-36 g/dL Red Cell Distribution Width 12.5 10.0-14.5 % Platelet Count 213 130-400 10^3/uL Mean Platelet Volume 11.0 9.0-12.2 fL Immature Granulocyte % (Auto) 0 % Neutrophils (%) (Auto) 72 42-75 % Lymphocytes (%) (Auto) 19 12-44 % Monocytes (%) (Auto) 6 0-12 % Eosinophils (%) (Auto) 2 0-10 % Basophils (%) (Auto) 1 0-10 % Neutrophils # (Auto) 5.8 1.8-7.8 10^3/uL Lymphocytes # (Auto) 1.5 1.0-4.0 10^3/uL Monocytes # (Auto) 0.5 0.0-1.0 10^3/uL Eosinophils # (Auto) 0.1 0.0-0.3 10^3/uL Basophils # (Auto) 0.0 0.0-0.1 10^3/uL Immature Granulocyte # (Auto) 0.0 0.0-0.1 10^3/uL Sodium Level 137 135-145 MMOL/L Potassium Level 4.1 3.6-5.0 MMOL/L Chloride Level 102 98-107 MMOL/L Carbon Dioxide Level 24 21-32 MMOL/L Anion Gap 11 5-14 MMOL/L Blood Urea Nitrogen 10 7-18 MG/DL Creatinine 0.77 0.60-1.30 MG/DL Estimat Glomerular Filtration Rate 86 BUN/Creatinine Ratio 13 Glucose Level 117 H 70-105 MG/DL Calcium Level 9.9 8.5-10.1 MG/DL Corrected Calcium 9.9 8.5-10.1 MG/DL Total Bilirubin 0.7 0.1-1.0 MG/DL Aspartate Amino Transf (AST/SGOT) 37 H 5-34 U/L Alanine Aminotransferase (ALT/SGPT) 49 0-55 U/L Alkaline Phosphatase 215 H 40-136 U/L C-Reactive Protein High Sensitivity 14.16 H 0.00-0.50 MG/DL Total Protein 7.4 6.4-8.2 GM/DL Albumin 4.0 3.2-4.5 GM/DL My Orders Orders - CEM ZAVALA MD Ua Culture If Indicated (04/13/22 11:56) Cbc With Automated Diff (04/13/22 12:27) Comprehensive Metabolic Panel (04/13/22 12:27) Hs C Reactive Protein (04/13/22 12:27) Ed Iv/Invasive Line Start (04/13/22 12:27) Fentanyl Inj (Sublimaze Injection) (04/13/22 13:00) Chest Pa/Lat (2 View) (04/13/22 13:03) Ct Laura Chest/Noang Abd-Pelv W (04/13/22 14:13) Iohexol Injection (Omnipaque 350 Mg/Ml 1 (04/13/22 14:15) Received Contrast (Hold Metformin- Contr (04/13/22 14:15) Ns (Ivpb) (Sodium Chloride 0.9% Ivpb Bag (04/13/22 14:15) Ketorolac Injection (Toradol Injection) (04/13/22 15:45) Ceftriaxone 1 Gm Pre-Mix (Rocephin 1 Gm (04/13/22 16:09) Medications Given in ED Current Medications Medications Dose Ordered Sig/Karthik Route Start Time Stop Time Status Last Admin Dose Admin Fentanyl Citrate 50 mcg ONCE ONCE IVP 04/13/22 13:00 04/13/22 13:01 DC 04/13/22 13:09 50 MCG Iohexol 100 ml ONCE ONCE IV 04/13/22 14:15 04/13/22 14:16 DC 04/13/22 14:24 80 ML Ketorolac Tromethamine 30 mg ONCE ONCE IVP 04/13/22 15:45 04/13/22 15:46 DC 04/13/22 15:42 30 MG Sodium Chloride 100 ml ONCE ONCE IV 04/13/22 14:15 04/13/22 14:16 DC 04/13/22 14:24 80 ML Vital Signs/I&O 04/13/22 04/13/22 11:50 17:55 Temp 36.2 36.2 Pulse 88 82 Resp 20 20 B/P (MAP) 114/71 (85) 108/68 Pulse Ox 94 95 O2 Delivery Room Air Room Air Capillary Refill : Less Than 3 Seconds Blood Pressure Mean: 85 Progress Note : Progress Note Work-up revealed a right lower lobe pneumonia that appeared complicated. Due to the unusual appearance and significance of pain, CT was pursued. CT revealed atelectatic tissue and a pleural effusion. The exact nature of these findings is uncertain and needs to be followed over time. Patient was treated for pneumonia with Rocephin. Fentanyl and Toradol were given for pain. See discharge instructions for further discussion. Diagnostic Imaging Diagonstic Imaging: Xray Plain Films/CT/US/NM/MRI: chest Comments Chest x-ray viewed by me and report reviewed. See report below: NAME: MADELINE SCHMIDT [facility] REC#: [id number] PT STATUS: [facility] ER : 1960 PHYSICIAN: CEM ZAVALA MD ADMIT DATE: 04/13/22/ER Signed Date of Exam:04/13/22 CHEST PA/LAT (2 VIEW) INDICATION: Pleuritic chest pain. PA and lateral chest obtained at 1:28 p.m. and compared to 12/22/2021. FINDINGS: Heart is mildly enlarged. There is new bibasilar infiltrate versus atelectasis and new right pleural effusion. There is no pneumothorax. IMPRESSION: New bibasilar infiltrate versus atelectasis with right pleural effusion. Consider follow-up or chest CT as clinically warranted. Dictated by: Dictated on workstation # [id number] Dict: 04/13/22 1334 Trans: 04/13/221954 [id number] Interpreted by: GREG HI MD Electronically signed by: GREG HI MD 04/13/221954 Diagonstic Imaging: CT Plain Films/CT/US/NM/MRI: chest, abdomen, pelvis Comments CT angiogram chest with not angiogram abdomen and pelvis viewed by me and report reviewed. See report below: NAME: MADELINE SCHMIDT [facility] REC#: [id number] PT STATUS: [facility] ER : 1960 PHYSICIAN: CEM ZAVALA MD ADMIT DATE: 04/13/22/ER Signed Date of Exam:04/13/22 CHEST PA/LAT (2 VIEW) INDICATION: Pleuritic chest pain. PA and lateral chest obtained at 1:28 p.m. and compared to 12/22/2021. FINDINGS: Heart is mildly enlarged. There is new bibasilar infiltrate versus atelectasis and new right pleural effusion. There is no pneumothorax. IMPRESSION: New bibasilar infiltrate versus atelectasis with right pleural effusion. Consider follow-up or chest CT as clinically warranted. Dictated by: Dictated on workstation # [id number] Dict: 04/13/22 1334 Trans: 04/13/221954 [id number] Interpreted by: GREG HI MD Electronically signed by: GREG HI MD 04/13/221954 Departure Impression Primary Impression: Pneumonia Qualified Codes: J18.9 - Pneumonia, unspecified organism Additional Impressions: Pleuritic chest pain Abnormal CT scan of lung Abnormal CT scan, kidney Disposition: 01 HOME, SELF-CARE Condition: Improved Departure-Patient Inst. Decision time for Depature: 16:11 Referrals: [facility] (PCP/Family) Primary Care Physician Patient Instructions: Community-Acquired Pneumonia in Adults Add. Discharge Instructions: Your chest pain appears to be caused by pneumonia. You may treat your pain with ibuprofen up to 600 mg every 6 hours as needed. You may add Tylenol (acetaminophen) up to 1000 mg every 6 hours as needed for additional pain relief. Complete your antibiotics as prescribed. Drink plenty of clear liquids to stay well-hydrated. Your pneumonia is complicated on the x-rays and CT scan performed in the emergency room. It is very important that you follow-up with your primary care provider to perform imaging studies to monitor progress and resolution of the pneumonia. There was also an area on your kidneys that should be monitored with future imaging. Please discuss how this should be done with your primary care provider. Return to the emergency room if you have worsening symptoms despite following these instructions. All discharge instructions reviewed with patient and/or family. Voiced understanding. Scripts Azithromycin (Azithromycin) 250 Mg Tablet 250 MG PO UD, #6 TAB TAKE 2 TABLETS ON DAY ONE THEN TAKE 1 TABLET DAILY FOR FOUR MORE DAYS Prov: CEM ZAVALA MD 04/13/22 Cefdinir (Cefdinir) 300 Mg Capsule 300 MG PO BID, #20 CAP 0 Refills Prov: CEM ZAVALA MD 04/13/22 Copy Copies To 1: [facility]/CEM CONNELL MD Apr 13, 2022 12:57
[2022-04-13] MEDS ORDERED: fentaNYL INJ 100 MCG/2 ML AMP IVP ONE (13:00)
[2022-04-13 13:04] LABS: POTASSIUM 4.1 MMOL/L (3.6-5.0)
[2022-04-13 13:06] LABS: CALCIUM 9.9 MG/DL (8.5-10.1)
[2022-04-13 13:07] LABS: TOTAL PROTEIN 7.4 GM/DL (6.4-8.2)
[2022-04-13 13:08] LABS: BILIRUBIN,TOTAL 0.7 MG/DL (0.1-1.0)
[2022-04-13 13:10] LABS: CREATININE SERUM 0.77 MG/DL (0.60-1.30)
--- NOTE | 2022-04-13 13:39 | Diagnostic Imaging Report ---
INDICATION: Pleuritic chest pain. PA and lateral chest obtained at 1:28 p.m. and compared to 12/22/2021. FINDINGS: Heart is mildly enlarged. There is new bibasilar infiltrate versus atelectasis and new right pleural effusion. There is no pneumothorax. IMPRESSION: New bibasilar infiltrate versus atelectasis with right pleural effusion. Consider follow-up or chest CT as clinically warranted. Dictated by: Dictated on workstation # [id number]
[2022-04-13] MEDS ORDERED: HOLD METFORMIN - RECEIVED CONTRAST 20 ML VIAL IV SCH (14:15)
[2022-04-13] MEDS ORDERED: IOHEXOL 350 MG/ML 100 ML (OMNIPAQUE 350) VIAL IV ONE (14:15)
[2022-04-13] MEDS ORDERED: NS 100 ML (IVPB) BAG IV ONE (14:15)
--- NOTE | 2022-04-13 14:53 | Diagnostic Imaging Report ---
INDICATION: Chest pain, abdominal pain CTA chest, abdomen and pelvis Thin axial sections through the chest, abdomen and pelvis are obtained following intravenous contrast bolus. Multiplanar MIP images were reconstructed and reviewed. All CT scans use one or more of the following dose optimizing techniques: automated exposure control, MA and/or KvP adjustment based on patient size and exam type or iterative reconstruction. CT angiogram chest: Evaluation of pulmonary arterial system is without evidence of thromboembolism. No filling defects are seen within central, lobar or segmental branches. The thoracic aorta is normal caliber. No dissection is identified. No pericardial fluid is identified. There is a moderate-sized right pleural effusion. This measures to thickness approximately 4.4 cm. No left-sided effusion is identified. There is compressive atelectasis in the right lower lobe. Partial atelectasis right middle lobe is noted as well. There is some linear atelectasis in the lingula and subsegmental atelectasis left lower lobe. CT abdomen and pelvis: The gallbladder is surgically absent. Liver and spleen are unremarkable. The pancreas and adrenal glands are unremarkable. There is a 16 mm cortical lesion involving the posterior aspect of the right kidney. Density measurements are greater than typical cyst and a solid lesion cannot be entirely excluded. There is a 2.3 cm lower pole left kidney. There is a 3 mm nonobstructing calculus in the lower pole of the left kidney. No ureteral calculi or hydronephrosis is detected. Aorta is nonaneurysmal. The bowel loops are normal caliber. There is no ascites. The bladder is unremarkable. The uterus is surgically absent. No inflammatory changes are identified. IMPRESSION: 1. No evidence of pulmonary embolism or acute aortic disease. 2. Moderate size right pleural effusion with associated atelectasis or consolidation right lower lobe. There is also some atelectasis or infiltrate in the right middle lobe, lingula and left lower lobe. 3. Indeterminate lesion right kidney. Pre and postcontrast CT or renal ultrasound could be performed for further characterization, on a nonemergent basis. 4. Left renal cyst. 5. Nonobstructing left renal calculus. No other significant abnormality is detected. Dictated by: Dictated on workstation # [id number]
[2022-04-13] MEDS ORDERED: KETOROLAC 30 MG/ML VIAL IVP ONE (15:45)
[2022-04-13] MEDS ORDERED: cefTRIAXone 1 GM PRE-MIX 50 ML IV STA (16:09)
[2022-04-13] MEDS ORDERED: AZIT250T12 PO (16:14)
[2022-04-13] MEDS ORDERED: CEFD300C3 PO (16:14)
[2022-04-13 17:55] VITALS: BP 108/68
== END 2022-04-13 17:55 | disposition home or self-care (01) ==
LOC: EDUNIT# 11:40 → ER 11:46
DX: J18.9 Pneumonia, unspecified organism (principal); R91.8 Other nonspecific abnormal finding of lung field; R93.429 Abnormal radiologic findings on diagnostic imaging of unspecified kidney; J90 Pleural effusion, not elsewhere classified; F17.210 Nicotine dependence, cigarettes, uncomplicated; Z88.5 Allergy status to narcotic agent; Z88.0 Allergy status to penicillin; Z88.2 Allergy status to sulfonamides
CPT/HCPCS: 36415; 71046; 71275; 74177; 80053; 81000; 85025; 86141